=== PATIENT | male | born 1970 | race Caucasian/White ===

== ENCOUNTER 2017-07-16 17:54 | Emergency (ER) | payer OTHER ==
[~2017-07-16] VITALS: Ht 172.7 cm; Wt 72.6 kg
[~2017-07-16 17:54] MED LIST: ACET325 PO; ALBU90OI INH; AMOCLA500 PO; AMOCLA875 PO; AMOX500 PO; CEPH500 PO; CRUTCH2 XX; CRUTCH3 USE; Cipro500 MG PO; Ciprodex Otic7.5 ML BOTHEARS; Cortisporin Ear10 ML RIGHTEAR; DOXY100 PO; ERYT333ERA PO; HYDACE5 PO; HYDGUAL120 PO; HYDR1TAB94 PO; IBUP800 PO; INSULANPEN SC; LISI5 PO; LORA10ER PO; METF500 PO; METO25 PO; PROM25 PO; Percocet 5-3251 EACH PO; ROXICODONE5 MG PO; TERB24TC TOP; THIA100 PO; TRAM50 PO; Ultram50 MG PO
[2017-07-16] MEDS ORDERED: Bactrim Ds Tab1 EACH PO (19:01)
[2017-07-16] MEDS ORDERED: PENVK500 PO (19:01)
[2017-09-24] MEDS ORDERED: Augmentin 875-1 EACH PO (10:21)
[2017-09-24] MEDS ORDERED: HYDR1TAB94 PO (10:22)
[2017-09-24] MEDS ORDERED: CEPH500 PO (10:22)
[2017-09-24] MEDS ORDERED: ACET325 PO (10:23)
[2018-05-26] MEDS ORDERED: BASAGLAR K100 UNIT/1 (09:17)
[2018-05-26] MEDS ORDERED: PROM25 PO (12:38)
[2018-05-26] MEDS ORDERED: Mupirocin22 GM TOP (12:38)
== END 2017-07-16 19:10 | disposition home or self-care (01) ==
LOC: ER 17:54
DX: K04.7 Periapical abscess without sinus (principal); Z79.4 Long term (current) use of insulin; E11.9 Type 2 diabetes mellitus without complications; F17.200 Nicotine dependence, unspecified, uncomplicated
CPT/HCPCS: 10060; 99283

== ENCOUNTER 2017-08-15 09:05 | Emergency (ER) | payer OTHER ==
[~2017-08-15] VITALS: Ht 172.7 cm; Wt 72.6 kg
[~2017-08-15 09:05] MED LIST changes: +Bactrim Ds Tab1 EACH PO; +PENVK500 PO
[2017-08-15 10:00] LABS: BASOPHILS ABSOLUTE AUTO 0.05 K/mm3 (0.00-0.23); BASOPHILS PERCENT AUTO 1 % (0-2); EOSINOPHILS ABSOLUTE AUTO 0.16 K/mm3 (0.00-0.68); EOSINOPHILS PERCENT AUTO 2 % (0-6); Hematocrit 40.9 % (37.0-53.0); Hemoglobin 13.1 g/dL (13.5-17.5); IMMATURE GRAN ABSOLUTE AUTO 0.05 K/mm3 (0.00-0.10); IMMATURE GRAN PERCENT AUTO 1 % (0-1); LYMPHOCYTES ABSOLUTE AUTO 1.85 K/mm3 (0.84-5.20); LYMPHOCYTES PERCENT AUTO 18 % (21-46); MONOCYTES ABSOLUTE AUTO 0.68 K/mm3 (0.16-1.47); MONOCYTES PERCENT AUTO 7 % (4-13); Mean Corpuscular HGB 27.8 pg (26.0-34.0); Mean Corpuscular Volume 87 fL (80-100); Mean Platelet Volume 9.2 fL (9.1-12.4); NEUTROPHILS ABSOLUTE AUTO 7.67 K/mm3 (1.96-9.15); NEUTROPHILS PERCENT AUTO 73 % (41-73); Platelet Count 339 K/mm3 (150-400); RDW Standard Deviation 44.7 fL (35.1-46.3); Red Blood Cell Count 4.72 M/mm3 (4.30-5.90); White Blood Cell Count 10.46 K/mm3 (4.00-11.30)
[2017-08-15 10:20] LABS: Alanine Aminotransfer (ALT/SGP 21 U/L (12-78); Albumin, Blood 3.7 g/dL (3.4-5.0); Albumin/Globulin Ratio 0.7 (0.8-1.8); Alk Phos 116 U/L (50-136); Anion Gap 6 mmol/L (6-16); Aspartate Aminotrans (AST/SGOT 11 U/L (12-37); Bilirubin, Total 0.5 mg/dL (0.1-1.0); Blood Urea Nitrogen 13 mg/dL (8-24); Bun/Creatinine Ratio 17.1 (12.0-20.0); CO2, Blood 26 mmol/L (21-32); Chloride, Blood 104 mmol/L (98-108); Creatinine, Blood 0.76 mg/dL (0.60-1.20); Glomerular Filtration Rate >60 (60-); Glucose, Blood 226 mg/dL (70-99); Potassium, Blood 4.4 mmol/L (3.5-5.5); Sodium, Blood 136 mmol/L (136-145); Total Protein, Blood 8.7 g/dL (6.4-8.2)
[2017-08-15] MEDS ORDERED: Loperamide2 MG PO (12:06)
[2017-08-15] MEDS ORDERED: ONDA4ODT MM (12:06)
[2017-09-24] MEDS ORDERED: Augmentin 875-1 EACH PO (10:21)
[2017-09-24] MEDS ORDERED: CEPH500 PO (10:22)
[2017-09-24] MEDS ORDERED: HYDR1TAB94 PO (10:22)
[2017-09-24] MEDS ORDERED: ACET325 PO (10:23)
[2018-05-26] MEDS ORDERED: BASAGLAR K100 UNIT/1 (09:17)
[2018-05-26] MEDS ORDERED: PROM25 PO (12:38)
[2018-05-26] MEDS ORDERED: Mupirocin22 GM TOP (12:38)
== END 2017-08-15 12:15 | disposition home or self-care (01) ==
LOC: ER 09:05
PROVIDERS: Emergency Medicine
DX: E11.65 Type 2 diabetes mellitus with hyperglycemia (principal); R10.9 Unspecified abdominal pain; R19.7 Diarrhea, unspecified; R11.0 Nausea; F17.200 Nicotine dependence, unspecified, uncomplicated; Z79.4 Long term (current) use of insulin
CPT/HCPCS: 36415; 80053; 82947; 83690; 85025; 96361; 96374; 96375; 99284; J2270; J2405; J7030

== ENCOUNTER 2017-09-11 | Emergency (ER) | END 2017-09-11 12:11 | disposition home or self-care (01) ==

== ENCOUNTER 2017-09-21 08:58 | Emergency (ER) | payer OTHER ==
[~2017-09-21] VITALS: Ht 172.7 cm; Wt 72.6 kg
[~2017-09-21 08:58] MED LIST changes: +Loperamide2 MG PO; +ONDA4ODT MM
[2017-09-21] MEDS ORDERED: Cleocin HCl150 MG PO (09:58)
[2018-05-26] MEDS ORDERED: BASAGLAR K100 UNIT/1 (09:17)
[2018-05-26] MEDS ORDERED: PROM25 PO (12:38)
[2018-05-26] MEDS ORDERED: Mupirocin22 GM TOP (12:38)
== END 2017-09-21 10:29 | disposition home or self-care (01) ==
LOC: ER 08:58
DX: K04.7 Periapical abscess without sinus (principal); L08.9 Local infection of the skin and subcutaneous tissue, unspecified; Z79.4 Long term (current) use of insulin; E11.9 Type 2 diabetes mellitus without complications; F17.210 Nicotine dependence, cigarettes, uncomplicated
CPT/HCPCS: 99282

== ENCOUNTER 2017-09-22 12:54 | Inpatient (IN) | payer OTHER ==
[~2017-09-22] VITALS: Ht 175.3 cm; Wt 66.5 kg
[~2017-09-22 12:54] MED LIST changes: +Cleocin HCl150 MG PO
[2017-09-22 13:41] LABS: BASOPHILS ABSOLUTE AUTO 0.06 K/mm3 (0.00-0.23); BASOPHILS PERCENT AUTO 1 % (0-2); EOSINOPHILS ABSOLUTE AUTO 0.05 K/mm3 (0.00-0.68); EOSINOPHILS PERCENT AUTO 1 % (0-6); Hematocrit 38.4 % (37.0-53.0); Hemoglobin 12.5 g/dL (13.5-17.5); IMMATURE GRAN ABSOLUTE AUTO 0.03 K/mm3 (0.00-0.10); IMMATURE GRAN PERCENT AUTO 0 % (0-1); LYMPHOCYTES ABSOLUTE AUTO 1.98 K/mm3 (0.84-5.20); LYMPHOCYTES PERCENT AUTO 26 % (21-46); MONOCYTES ABSOLUTE AUTO 0.67 K/mm3 (0.16-1.47); MONOCYTES PERCENT AUTO 9 % (4-13); Mean Corpuscular HGB 27.2 pg (26.0-34.0); Mean Corpuscular HGB Conc 32.6 g/dL (31.5-36.5); Mean Corpuscular Volume 84 fL (80-100); NEUTROPHILS ABSOLUTE AUTO 4.74 K/mm3 (1.96-9.15); NEUTROPHILS PERCENT AUTO 63 % (41-73); Platelet Count 463 K/mm3 (150-400); RDW Coefficient Variation 13.3 % (11.7-14.2); RDW Standard Deviation 40.4 fL (35.1-46.3); Red Blood Cell Count 4.59 M/mm3 (4.30-5.90); White Blood Cell Count 7.53 K/mm3 (4.00-11.30)
[2017-09-22 13:57] LABS: Alanine Aminotransfer (ALT/SGP 11 U/L (12-78); Albumin, Blood 3.4 g/dL (3.4-5.0); Albumin/Globulin Ratio 0.6 (0.8-1.8); Alk Phos 126 U/L (50-136); Anion Gap 7 mmol/L (6-16); Aspartate Aminotrans (AST/SGOT 8 U/L (12-37); Bilirubin, Total 0.5 mg/dL (0.1-1.0); Blood Urea Nitrogen 16 mg/dL (8-24); Bun/Creatinine Ratio 20.8 (12.0-20.0); CO2, Blood 27 mmol/L (21-32); Chloride, Blood 91 mmol/L (98-108); Creatinine, Blood 0.77 mg/dL (0.60-1.20); Glomerular Filtration Rate >60 (60-); Glucose, Blood 233 mg/dL (70-99); Potassium, Blood 4.4 mmol/L (3.5-5.5); Sodium, Blood 125 mmol/L (136-145); Total Protein, Blood 9.4 g/dL (6.4-8.2)
[2017-09-23 05:50] LABS: BASOPHILS ABSOLUTE AUTO 0.04 K/mm3 (0.00-0.23); BASOPHILS PERCENT AUTO 1 % (0-2); EOSINOPHILS ABSOLUTE AUTO 0.18 K/mm3 (0.00-0.68); EOSINOPHILS PERCENT AUTO 3 % (0-6); Hematocrit 33.5 % (37.0-53.0); Hemoglobin 10.9 g/dL (13.5-17.5); IMMATURE GRAN ABSOLUTE AUTO 0.02 K/mm3 (0.00-0.10); IMMATURE GRAN PERCENT AUTO 0 % (0-1); LYMPHOCYTES ABSOLUTE AUTO 2.14 K/mm3 (0.84-5.20); LYMPHOCYTES PERCENT AUTO 31 % (21-46); MONOCYTES ABSOLUTE AUTO 0.69 K/mm3 (0.16-1.47); MONOCYTES PERCENT AUTO 10 % (4-13); Mean Corpuscular HGB 27.1 pg (26.0-34.0); Mean Corpuscular HGB Conc 32.5 g/dL (31.5-36.5); Mean Corpuscular Volume 83 fL (80-100); Mean Platelet Volume 9.5 fL (9.1-12.4); NEUTROPHILS ABSOLUTE AUTO 3.87 K/mm3 (1.96-9.15); NEUTROPHILS PERCENT AUTO 56 % (41-73); Platelet Count 417 K/mm3 (150-400); RDW Coefficient Variation 13.2 % (11.7-14.2); RDW Standard Deviation 40.3 fL (35.1-46.3); Red Blood Cell Count 4.02 M/mm3 (4.30-5.90); White Blood Cell Count 6.94 K/mm3 (4.00-11.30)
[2017-09-23 06:28] LABS: Anion Gap 9 mmol/L (6-16); Blood Urea Nitrogen 13 mg/dL (8-24); Bun/Creatinine Ratio 21.9 (12.0-20.0); CO2, Blood 26 mmol/L (21-32); Calcium, Blood 8.3 mg/dL (8.5-10.1); Chloride, Blood 94 mmol/L (98-108); Creatinine, Blood 0.59 mg/dL (0.60-1.20); Glomerular Filtration Rate >60 (60-); Glucose, Blood 252 mg/dL (70-99); Potassium, Blood 4.1 mmol/L (3.5-5.5); Sodium, Blood 129 mmol/L (136-145)
[2017-09-24 01:18] LABS: BASOPHILS ABSOLUTE AUTO 0.05 K/mm3 (0.00-0.23); BASOPHILS PERCENT AUTO 1 % (0-2); EOSINOPHILS ABSOLUTE AUTO 0.17 K/mm3 (0.00-0.68); EOSINOPHILS PERCENT AUTO 2 % (0-6); Hematocrit 33.8 % (37.0-53.0); IMMATURE GRAN ABSOLUTE AUTO 0.03 K/mm3 (0.00-0.10); IMMATURE GRAN PERCENT AUTO 0 % (0-1); LYMPHOCYTES PERCENT AUTO 29 % (21-46); MONOCYTES PERCENT AUTO 7 % (4-13); Mean Corpuscular HGB 27.6 pg (26.0-34.0); Mean Corpuscular HGB Conc 32.5 g/dL (31.5-36.5); Mean Corpuscular Volume 85 fL (80-100); NEUTROPHILS ABSOLUTE AUTO 4.26 K/mm3 (1.96-9.15); NEUTROPHILS PERCENT AUTO 61 % (41-73); Platelet Count 363 K/mm3 (150-400); RDW Coefficient Variation 13.3 % (11.7-14.2); RDW Standard Deviation 41.6 fL (35.1-46.3); Red Blood Cell Count 3.99 M/mm3 (4.30-5.90); White Blood Cell Count 7.01 K/mm3 (4.00-11.30)
[2017-09-24 01:32] LABS: Anion Gap 5 mmol/L (6-16); Blood Urea Nitrogen 10 mg/dL (8-24); Bun/Creatinine Ratio 18.2 (12.0-20.0); CO2, Blood 29 mmol/L (21-32); Calcium, Blood 8.2 mg/dL (8.5-10.1); Chloride, Blood 99 mmol/L (98-108); Creatinine, Blood 0.55 mg/dL (0.60-1.20); Glomerular Filtration Rate >60 (60-); Glucose, Blood 107 mg/dL (70-99); Potassium, Blood 4.2 mmol/L (3.5-5.5); Sodium, Blood 133 mmol/L (136-145)
[2017-09-24 01:34] LABS: Vancomycin, Trough 12.3 ug/mL (5.0-10.0)
[2017-09-24] MEDS ORDERED: Augmentin 875-1 EACH PO ×2 (10:21)
[2017-09-24] MEDS ORDERED: CEPH500 PO ×2 (10:22)
[2017-09-24] MEDS ORDERED: HYDR1TAB94 PO ×2 (10:22)
[2017-09-24] MEDS ORDERED: ACET325 PO ×2 (10:23)
[2018-05-26] MEDS ORDERED: BASAGLAR K100 UNIT/1 (09:17)
[2018-05-26] MEDS ORDERED: PROM25 PO (12:38)
[2018-05-26] MEDS ORDERED: Mupirocin22 GM TOP (12:38)
== END 2017-09-24 10:55 | disposition home or self-care (01) | DRG 872 ==
LOC: ER 12:54 → MEDS 15:19
PROVIDERS: Emergency Medicine; Internal Medicine
PROC: 3E0234Z Introduction of Serum, Toxoid and Vaccine into Muscle, Percutaneous Approach (ICD-10-PCS; principal; 2017-09-22)
DX: A41.9 Sepsis, unspecified organism (principal); E11.65 Type 2 diabetes mellitus with hyperglycemia; L03.211 Cellulitis of face; E87.1 Hypo-osmolality and hyponatremia; F17.210 Nicotine dependence, cigarettes, uncomplicated; I10 Essential (primary) hypertension; Z23 Encounter for immunization; K02.9 Dental caries, unspecified; E86.0 Dehydration; R59.0 Localized enlarged lymph nodes; F15.10 Other stimulant abuse, uncomplicated; K04.7 Periapical abscess without sinus
CPT/HCPCS: 36415; 70491; 80048; 80053; 80202; 82947; 83605; 85025; 87040; 96361; 96365; 96375; 99285; J0295; J1815; J2405; J3010; J3370; J7030; J7050; Q9967

== ENCOUNTER 2018-01-03 17:32 | Emergency (ER) | payer OTHER ==
[~2018-01-03] VITALS: Ht 172.7 cm; Wt 70.3 kg
[~2018-01-03 17:32] MED LIST changes: +Augmentin 875-1 EACH PO
[2018-01-03 18:55] LABS: BASOPHILS ABSOLUTE AUTO 0.05 K/mm3 (0.00-0.23); BASOPHILS PERCENT AUTO 1 % (0-2); EOSINOPHILS PERCENT AUTO 4 % (0-6); Hemoglobin 11.1 g/dL (13.5-17.5); IMMATURE GRAN ABSOLUTE AUTO 0.03 K/mm3 (0.00-0.10); IMMATURE GRAN PERCENT AUTO 0 % (0-1); LYMPHOCYTES ABSOLUTE AUTO 2.38 K/mm3 (0.84-5.20); LYMPHOCYTES PERCENT AUTO 26 % (21-46); MONOCYTES ABSOLUTE AUTO 0.53 K/mm3 (0.16-1.47); MONOCYTES PERCENT AUTO 6 % (4-13); Mean Corpuscular HGB 27.6 pg (26.0-34.0); Mean Corpuscular HGB Conc 32.6 g/dL (31.5-36.5); Mean Corpuscular Volume 85 fL (80-100); Mean Platelet Volume 9.3 fL (9.1-12.4); NEUTROPHILS ABSOLUTE AUTO 5.62 K/mm3 (1.96-9.15); NEUTROPHILS PERCENT AUTO 62 % (41-73); Platelet Count 328 K/mm3 (150-400); RDW Coefficient Variation 13.7 % (11.7-14.2); RDW Standard Deviation 42.5 fL (35.1-46.3); Red Blood Cell Count 4.02 M/mm3 (4.30-5.90); White Blood Cell Count 9.01 K/mm3 (4.00-11.30)
[2018-01-03] MEDS ORDERED: CEPH500 PO (19:05)
[2018-01-03] MEDS ORDERED: Bactrim Ds Tab1 EACH PO (19:05)
[2018-01-03 19:27] LABS: Alanine Aminotransfer (ALT/SGP 26 U/L (12-78); Albumin/Globulin Ratio 0.7 (0.8-1.8); Alk Phos 132 U/L (50-136); Anion Gap 8 mmol/L (6-16); Aspartate Aminotrans (AST/SGOT 16 U/L (12-37); Bilirubin, Total 0.2 mg/dL (0.1-1.0); Blood Urea Nitrogen 14 mg/dL (8-24); Bun/Creatinine Ratio 17.3 (12.0-20.0); CO2, Blood 26 mmol/L (21-32); Calcium, Blood 8.4 mg/dL (8.5-10.1); Chloride, Blood 103 mmol/L (98-108); Creatinine, Blood 0.81 mg/dL (0.60-1.20); Globulin, Blood 4.2 g/dL (2.2-4.0); Glomerular Filtration Rate >60 (60-); Glucose, Blood 303 mg/dL (70-99); Potassium, Blood 4.1 mmol/L (3.5-5.5); Sodium, Blood 137 mmol/L (136-145); Total Protein, Blood 7.2 g/dL (6.4-8.2)
== END 2018-01-03 19:45 | disposition home or self-care (01) ==
LOC: ER 17:32
PROVIDERS: Emergency Medicine
DX: L03.114 Cellulitis of left upper limb (principal); L03.221 Cellulitis of neck; E11.9 Type 2 diabetes mellitus without complications; F17.210 Nicotine dependence, cigarettes, uncomplicated; Z79.4 Long term (current) use of insulin
CPT/HCPCS: 36415; 80053; 82947; 83690; 85025; 99283; J7030

== ENCOUNTER 2018-03-15 18:15 | Inpatient (IN) | payer OTHER ==
[~2018-03-15] VITALS: Ht 182.9 cm; Wt 70.3 kg
[2018-03-15 18:54] LABS: BASOPHILS ABSOLUTE AUTO 0.05 K/mm3 (0.00-0.23); BASOPHILS PERCENT AUTO 0 % (0-2); EOSINOPHILS ABSOLUTE AUTO 0.15 K/mm3 (0.00-0.68); EOSINOPHILS PERCENT AUTO 1 % (0-6); Hemoglobin 12.5 g/dL (13.5-17.5); IMMATURE GRAN ABSOLUTE AUTO 0.09 K/mm3 (0.00-0.10); IMMATURE GRAN PERCENT AUTO 1 % (0-1); LYMPHOCYTES ABSOLUTE AUTO 1.43 K/mm3 (0.84-5.20); LYMPHOCYTES PERCENT AUTO 7 % (21-46); MONOCYTES ABSOLUTE AUTO 0.92 K/mm3 (0.16-1.47); MONOCYTES PERCENT AUTO 5 % (4-13); Mean Corpuscular HGB 29.1 pg (26.0-34.0); Mean Corpuscular HGB Conc 32.9 g/dL (31.5-36.5); Mean Corpuscular Volume 89 fL (80-100); Mean Platelet Volume 9.4 fL (9.1-12.4); NEUTROPHILS ABSOLUTE AUTO 16.58 K/mm3 (1.96-9.15); NEUTROPHILS PERCENT AUTO 86 % (41-73); Platelet Count 402 K/mm3 (150-400); RDW Coefficient Variation 13.9 % (11.7-14.2); Red Blood Cell Count 4.29 M/mm3 (4.30-5.90); White Blood Cell Count 19.22 K/mm3 (4.00-11.30)
[2018-03-15 19:18] LABS: Alanine Aminotransfer (ALT/SGP 18 U/L (12-78); Albumin, Blood 3.3 g/dL (3.4-5.0); Albumin/Globulin Ratio 0.7 (0.8-1.8); Alk Phos 116 U/L (50-136); Anion Gap 9 mmol/L (6-16); Aspartate Aminotrans (AST/SGOT 8 U/L (12-37); Bilirubin, Total 0.3 mg/dL (0.1-1.0); Blood Urea Nitrogen 17 mg/dL (8-24); Bun/Creatinine Ratio 18.2 (12.0-20.0); CO2, Blood 24 mmol/L (21-32); Calcium, Blood 9.1 mg/dL (8.5-10.1); Chloride, Blood 102 mmol/L (98-108); Creatinine, Blood 0.94 mg/dL (0.60-1.20); Globulin, Blood 4.9 g/dL (2.2-4.0); Glomerular Filtration Rate >60 (60-); Glucose, Blood 288 mg/dL (70-99); Potassium, Blood 5.1 mmol/L (3.5-5.5); Sodium, Blood 135 mmol/L (136-145); Total Protein, Blood 8.2 g/dL (6.4-8.2)
[2018-03-16 05:28] LABS: Hematocrit 33.9 % (37.0-53.0); Hemoglobin 11.1 g/dL (13.5-17.5); Mean Corpuscular HGB Conc 32.7 g/dL (31.5-36.5); Mean Corpuscular Volume 89 fL (80-100); Mean Platelet Volume 9.2 fL (9.1-12.4); Platelet Count 325 K/mm3 (150-400); RDW Coefficient Variation 13.9 % (11.7-14.2); RDW Standard Deviation 44.9 fL (35.1-46.3); Red Blood Cell Count 3.83 M/mm3 (4.30-5.90); White Blood Cell Count 11.52 K/mm3 (4.00-11.30)
[2018-03-16 06:04] LABS: Alanine Aminotransfer (ALT/SGP 16 U/L (12-78); Albumin, Blood 2.6 g/dL (3.4-5.0); Albumin/Globulin Ratio 0.6 (0.8-1.8); Alk Phos 105 U/L (50-136); Anion Gap 8 mmol/L (6-16); Aspartate Aminotrans (AST/SGOT 11 U/L (12-37); Bilirubin, Total 0.4 mg/dL (0.1-1.0); Blood Urea Nitrogen 13 mg/dL (8-24); Bun/Creatinine Ratio 16.8 (12.0-20.0); CO2, Blood 26 mmol/L (21-32); Chloride, Blood 109 mmol/L (98-108); Creatinine, Blood 0.77 mg/dL (0.60-1.20); Globulin, Blood 4.2 g/dL (2.2-4.0); Glomerular Filtration Rate >60 (60-); Glucose, Blood 120 mg/dL (70-99); Potassium, Blood 3.8 mmol/L (3.5-5.5); Sodium, Blood 143 mmol/L (136-145); Total Protein, Blood 6.8 g/dL (6.4-8.2)
[2018-03-16 13:02] LABS: Vancomycin, Trough 10.1 ug/mL (5.0-10.0)
[2018-03-17 05:35] LABS: Alanine Aminotransfer (ALT/SGP 15 U/L (12-78); Albumin, Blood 2.5 g/dL (3.4-5.0); Albumin/Globulin Ratio 0.6 (0.8-1.8); Alk Phos 92 U/L (50-136); Anion Gap 7 mmol/L (6-16); Aspartate Aminotrans (AST/SGOT 10 U/L (12-37); Bilirubin, Total 0.2 mg/dL (0.1-1.0); Blood Urea Nitrogen 19 mg/dL (8-24); Bun/Creatinine Ratio 20.7 (12.0-20.0); CO2, Blood 28 mmol/L (21-32); Calcium, Blood 8.5 mg/dL (8.5-10.1); Chloride, Blood 107 mmol/L (98-108); Creatinine, Blood 0.92 mg/dL (0.60-1.20); Globulin, Blood 4.4 g/dL (2.2-4.0); Glomerular Filtration Rate >60 (60-); Glucose, Blood 94 mg/dL (70-99); Sodium, Blood 142 mmol/L (136-145); Total Protein, Blood 6.9 g/dL (6.4-8.2)
[2018-03-17 06:03] LABS: BASOPHILS ABSOLUTE AUTO 0.07 K/mm3 (0.00-0.23); BASOPHILS PERCENT AUTO 1 % (0-2); EOSINOPHILS ABSOLUTE AUTO 0.33 K/mm3 (0.00-0.68); EOSINOPHILS PERCENT AUTO 4 % (0-6); Hematocrit 34.1 % (37.0-53.0); Hemoglobin 10.9 g/dL (13.5-17.5); IMMATURE GRAN ABSOLUTE AUTO 0.03 K/mm3 (0.00-0.10); IMMATURE GRAN PERCENT AUTO 0 % (0-1); LYMPHOCYTES ABSOLUTE AUTO 2.94 K/mm3 (0.84-5.20); LYMPHOCYTES PERCENT AUTO 36 % (21-46); MONOCYTES ABSOLUTE AUTO 0.57 K/mm3 (0.16-1.47); MONOCYTES PERCENT AUTO 7 % (4-13); Mean Corpuscular HGB 28.9 pg (26.0-34.0); Mean Corpuscular Volume 91 fL (80-100); Mean Platelet Volume 9.3 fL (9.1-12.4); NEUTROPHILS PERCENT AUTO 52 % (41-73); Platelet Count 318 K/mm3 (150-400); RDW Coefficient Variation 13.9 % (11.7-14.2); RDW Standard Deviation 46.2 fL (35.1-46.3); Red Blood Cell Count 3.77 M/mm3 (4.30-5.90); White Blood Cell Count 8.14 K/mm3 (4.00-11.30)
[2018-03-17 12:38] LABS: Vancomycin, Trough 15.2 ug/mL (5.0-10.0)
[2018-03-18 05:14] LABS: BASOPHILS ABSOLUTE AUTO 0.06 K/mm3 (0.00-0.23); BASOPHILS PERCENT AUTO 1 % (0-2); EOSINOPHILS ABSOLUTE AUTO 0.35 K/mm3 (0.00-0.68); EOSINOPHILS PERCENT AUTO 4 % (0-6); Hematocrit 32.5 % (37.0-53.0); Hemoglobin 10.4 g/dL (13.5-17.5); IMMATURE GRAN ABSOLUTE AUTO 0.03 K/mm3 (0.00-0.10); IMMATURE GRAN PERCENT AUTO 0 % (0-1); LYMPHOCYTES ABSOLUTE AUTO 2.73 K/mm3 (0.84-5.20); LYMPHOCYTES PERCENT AUTO 29 % (21-46); MONOCYTES PERCENT AUTO 8 % (4-13); Mean Corpuscular HGB 28.4 pg (26.0-34.0); Mean Corpuscular Volume 89 fL (80-100); Mean Platelet Volume 9.4 fL (9.1-12.4); NEUTROPHILS ABSOLUTE AUTO 5.48 K/mm3 (1.96-9.15); NEUTROPHILS PERCENT AUTO 59 % (41-73); Platelet Count 333 K/mm3 (150-400); RDW Coefficient Variation 13.7 % (11.7-14.2); RDW Standard Deviation 44.9 fL (35.1-46.3); Red Blood Cell Count 3.66 M/mm3 (4.30-5.90); White Blood Cell Count 9.35 K/mm3 (4.00-11.30)
[2018-03-18 05:33] LABS: Anion Gap 6 mmol/L (6-16); Blood Urea Nitrogen 26 mg/dL (8-24); Bun/Creatinine Ratio 28.5 (12.0-20.0); CO2, Blood 28 mmol/L (21-32); Calcium, Blood 8.2 mg/dL (8.5-10.1); Chloride, Blood 106 mmol/L (98-108); Creatinine, Blood 0.91 mg/dL (0.60-1.20); Glomerular Filtration Rate >60 (60-); Glucose, Blood 138 mg/dL (70-99); Sodium, Blood 140 mmol/L (136-145)
[2018-03-18 14:46] LABS: Vancomycin, Trough 18.7 ug/mL (5.0-10.0)
[2018-03-19 05:33] LABS: BASOPHILS ABSOLUTE AUTO 0.07 K/mm3 (0.00-0.23); BASOPHILS PERCENT AUTO 1 % (0-2); EOSINOPHILS ABSOLUTE AUTO 0.36 K/mm3 (0.00-0.68); EOSINOPHILS PERCENT AUTO 4 % (0-6); Hematocrit 36.2 % (37.0-53.0); Hemoglobin 11.7 g/dL (13.5-17.5); IMMATURE GRAN ABSOLUTE AUTO 0.05 K/mm3 (0.00-0.10); IMMATURE GRAN PERCENT AUTO 1 % (0-1); LYMPHOCYTES PERCENT AUTO 28 % (21-46); MONOCYTES ABSOLUTE AUTO 0.65 K/mm3 (0.16-1.47); MONOCYTES PERCENT AUTO 7 % (4-13); Mean Corpuscular HGB 28.3 pg (26.0-34.0); Mean Corpuscular HGB Conc 32.3 g/dL (31.5-36.5); Mean Corpuscular Volume 88 fL (80-100); Mean Platelet Volume 9.7 fL (9.1-12.4); NEUTROPHILS ABSOLUTE AUTO 5.67 K/mm3 (1.96-9.15); NEUTROPHILS PERCENT AUTO 60 % (41-73); Platelet Count 406 K/mm3 (150-400); RDW Coefficient Variation 13.9 % (11.7-14.2); RDW Standard Deviation 44.5 fL (35.1-46.3); Red Blood Cell Count 4.13 M/mm3 (4.30-5.90)
[2018-03-19 06:22] LABS: Anion Gap 5 mmol/L (6-16); Blood Urea Nitrogen 25 mg/dL (8-24); Bun/Creatinine Ratio 29.6 (12.0-20.0); CO2, Blood 30 mmol/L (21-32); Calcium, Blood 8.7 mg/dL (8.5-10.1); Chloride, Blood 106 mmol/L (98-108); Creatinine, Blood 0.85 mg/dL (0.60-1.20); Glomerular Filtration Rate >60 (60-); Glucose, Blood 109 mg/dL (70-99); Potassium, Blood 4.2 mmol/L (3.5-5.5); Sodium, Blood 141 mmol/L (136-145)
[2018-03-19] MEDS ORDERED: PAIN & FEVER325 MG PO (10:19)
[2018-03-19] MEDS ORDERED: NICO21TP TOP (10:26)
[2018-03-19] MEDS ORDERED: Acidophilus La100 GM PO (10:27)
[2018-03-19] MEDS ORDERED: Augmentin 875-1 EACH PO (10:28)
== END 2018-03-19 11:19 | disposition home or self-care (01) | DRG 872 ==
LOC: ER 18:15 → MEDS 20:06 → ENPENDDIS 03-19 09:32 → MEDS 03-19 11:19
PROVIDERS: Internal Medicine; Pharmacist; Physician Assistant
DX: A41.9 Sepsis, unspecified organism (principal); L03.312 Cellulitis of back [any part except buttock and flank]; L02.212 Cutaneous abscess of back [any part, except buttock and flank]; E11.65 Type 2 diabetes mellitus with hyperglycemia; I10 Essential (primary) hypertension; F19.10 Other psychoactive substance abuse, uncomplicated; F17.210 Nicotine dependence, cigarettes, uncomplicated; Z79.4 Long term (current) use of insulin
CPT/HCPCS: 36415; 36416; 72129; 80048; 80053; 80202; 82947; 83605; 85025; 85027; 96374; 99284-25; J1650; J1885; J2543; J3370; J7030; Q9967

== ENCOUNTER 2018-07-05 00:10 | Day surgery (SDC) | payer OTHER ==
[~2018-07-05 00:10] MED LIST changes: +Acidophilus La100 GM PO; +BASAGLAR K100 UNIT/1; +Mupirocin22 GM TOP; +NICO21TP TOP; +PAIN & FEVER325 MG PO
== END 2018-07-05 22:37 | disposition home or self-care (01) ==
LOC: WOUND 00:10
DX: E11.621 Type 2 diabetes mellitus with foot ulcer (principal); L97.412 Non-pressure chronic ulcer of right heel and midfoot with fat layer exposed; L97.522 Non-pressure chronic ulcer of other part of left foot with fat layer exposed; L97.515 Non-pressure chronic ulcer of other part of right foot with muscle involvement without evidence of necrosis; S61.206D Unspecified open wound of right little finger without damage to nail, subsequent encounter; S61.200D Unspecified open wound of right index finger without damage to nail, subsequent encounter; L03.032 Cellulitis of left toe; F19.10 Other psychoactive substance abuse, uncomplicated; Z79.4 Long term (current) use of insulin; Z72.0 Tobacco use; Z59.0 Homelessness

== ENCOUNTER 2018-07-07 00:17 | Day surgery (SDC) | payer OTHER | END 2018-07-07 22:43 | disposition home or self-care (01) | LOC: WOUND 00:17 | DX: E11.621 Type 2 diabetes mellitus with foot ulcer (principal); L97.515 Non-pressure chronic ulcer of other part of right foot with muscle involvement without evidence of necrosis; L97.412 Non-pressure chronic ulcer of right heel and midfoot with fat layer exposed; S61.206D Unspecified open wound of right little finger without damage to nail, subsequent encounter; S61.200D Unspecified open wound of right index finger without damage to nail, subsequent encounter; S91.102D Unspecified open wound of left great toe without damage to nail, subsequent encounter; L03.032 Cellulitis of left toe; F19.10 Other psychoactive substance abuse, uncomplicated; Z79.4 Long term (current) use of insulin; Z72.0 Tobacco use; Z59.0 Homelessness | CPT/HCPCS: 82947; G0463 ==

== ENCOUNTER 2018-07-22 08:30 | Day surgery (SDC) | payer OTHER | END 2018-07-22 22:44 | disposition home or self-care (01) | LOC: WOUND 08:30 | PROC: 0KBV0ZZ Excision of Right Foot Muscle, Open Approach (ICD-10-PCS; principal; 2018-07-22) | DX: E11.621 Type 2 diabetes mellitus with foot ulcer (principal); L97.512 Non-pressure chronic ulcer of other part of right foot with fat layer exposed ==

== ENCOUNTER 2018-07-26 10:15 | Day surgery (SDC) | payer OTHER | END 2018-07-26 22:34 | disposition home or self-care (01) | LOC: WOUND 10:15 | PROC: 0HBMXZZ Excision of Right Foot Skin, External Approach (ICD-10-PCS; principal; 2018-07-26) | DX: E11.621 Type 2 diabetes mellitus with foot ulcer (principal); L97.512 Non-pressure chronic ulcer of other part of right foot with fat layer exposed ==

== ENCOUNTER 2018-08-16 09:50 | Day surgery (SDC) | payer OTHER | END 2018-08-16 22:42 | disposition home or self-care (01) | LOC: WOUND 09:50 | DX: E11.621 Type 2 diabetes mellitus with foot ulcer (principal); L97.515 Non-pressure chronic ulcer of other part of right foot with muscle involvement without evidence of necrosis; L97.529 Non-pressure chronic ulcer of other part of left foot with unspecified severity; L03.032 Cellulitis of left toe; F19.10 Other psychoactive substance abuse, uncomplicated; Z79.4 Long term (current) use of insulin; Z72.0 Tobacco use; Z59.0 Homelessness | CPT/HCPCS: G0463 ==

== ENCOUNTER 2018-08-31 07:55 | Day surgery (SDC) | payer OTHER | END 2018-08-31 22:38 | disposition home or self-care (01) | LOC: WOUND 07:55 | DX: E11.621 Type 2 diabetes mellitus with foot ulcer (principal); L97.512 Non-pressure chronic ulcer of other part of right foot with fat layer exposed; E11.40 Type 2 diabetes mellitus with diabetic neuropathy, unspecified; F19.10 Other psychoactive substance abuse, uncomplicated; Z79.4 Long term (current) use of insulin; Z72.0 Tobacco use; Z59.0 Homelessness; I10 Essential (primary) hypertension | CPT/HCPCS: 87070; 87075; 87077; 87147; 87186; 87205 ==

== ENCOUNTER 2018-09-18 10:37 | Inpatient (IN) | payer OTHER ==
[~2018-09-18] VITALS: Ht 175.3 cm; Wt 72.2 kg
[~2018-09-18 10:37] MED LIST changes: -BASAGLAR K100 UNIT/1; +BASAGLAR K100 UNIT/1 SC
[2018-09-18 11:47] LABS: BASOPHILS ABSOLUTE AUTO 0.05 K/mm3 (0.00-0.23); BASOPHILS PERCENT AUTO 0 % (0-2); EOSINOPHILS ABSOLUTE AUTO 0.01 K/mm3 (0.00-0.68); EOSINOPHILS PERCENT AUTO 0 % (0-6); Hematocrit 32.2 % (37.0-53.0); Hemoglobin 10.7 g/dL (13.5-17.5); IMMATURE GRAN ABSOLUTE AUTO 0.19 K/mm3 (0.00-0.10); IMMATURE GRAN PERCENT AUTO 1 % (0-1); LYMPHOCYTES ABSOLUTE AUTO 1.22 K/mm3 (0.84-5.20); LYMPHOCYTES PERCENT AUTO 6 % (21-46); MONOCYTES ABSOLUTE AUTO 1.38 K/mm3 (0.16-1.47); MONOCYTES PERCENT AUTO 6 % (4-13); Mean Corpuscular HGB 28.6 pg (26.0-34.0); Mean Corpuscular HGB Conc 33.2 g/dL (31.5-36.5); Mean Corpuscular Volume 86 fL (80-100); Mean Platelet Volume 9.8 fL (9.1-12.4); NEUTROPHILS PERCENT AUTO 87 % (41-73); Platelet Count 310 K/mm3 (150-400); RDW Coefficient Variation 14.9 % (11.7-14.2); RDW Standard Deviation 47.7 fL (35.1-46.3); Red Blood Cell Count 3.74 M/mm3 (4.30-5.90); White Blood Cell Count 21.55 K/mm3 (4.00-11.30)
[2018-09-18 12:14] LABS: Alanine Aminotransfer (ALT/SGP 20 U/L (12-78); Albumin, Blood 3.1 g/dL (3.4-5.0); Albumin/Globulin Ratio 0.7 (0.8-1.8); Alk Phos 94 U/L (50-136); Anion Gap 12 mmol/L (6-16); Aspartate Aminotrans (AST/SGOT 20 U/L (12-37); Bilirubin, Total 0.8 mg/dL (0.1-1.0); Blood Urea Nitrogen 27 mg/dL (8-24); Bun/Creatinine Ratio 27.7 (12.0-20.0); CO2, Blood 20 mmol/L (21-32); Calcium, Blood 8.1 mg/dL (8.5-10.1); Chloride, Blood 98 mmol/L (98-108); Creatinine, Blood 0.98 mg/dL (0.60-1.20); Globulin, Blood 4.2 g/dL (2.2-4.0); Glomerular Filtration Rate >60 (60-); Glucose, Blood 265 mg/dL (70-99); Potassium, Blood 4.1 mmol/L (3.5-5.5); Sodium, Blood 130 mmol/L (136-145); Total Protein, Blood 7.3 g/dL (6.4-8.2)
[2018-09-18 12:21] LABS: Beta-hydroxybutyrate 2.5 mg/dL (0.2-2.8)
[2018-09-19 08:06] LABS: BASOPHILS ABSOLUTE AUTO 0.04 K/mm3 (0.00-0.23); BASOPHILS PERCENT AUTO 0 % (0-2); EOSINOPHILS ABSOLUTE AUTO 0.13 K/mm3 (0.00-0.68); EOSINOPHILS PERCENT AUTO 1 % (0-6); Hemoglobin 9.5 g/dL (13.5-17.5); IMMATURE GRAN PERCENT AUTO 1 % (0-1); LYMPHOCYTES ABSOLUTE AUTO 2.41 K/mm3 (0.84-5.20); LYMPHOCYTES PERCENT AUTO 15 % (21-46); MONOCYTES ABSOLUTE AUTO 1.26 K/mm3 (0.16-1.47); MONOCYTES PERCENT AUTO 8 % (4-13); Mean Corpuscular HGB 28.5 pg (26.0-34.0); Mean Corpuscular HGB Conc 31.7 g/dL (31.5-36.5); Mean Platelet Volume 9.7 fL (9.1-12.4); NEUTROPHILS ABSOLUTE AUTO 12.25 K/mm3 (1.96-9.15); NEUTROPHILS PERCENT AUTO 76 % (41-73); Platelet Count 265 K/mm3 (150-400); RDW Coefficient Variation 15.3 % (11.7-14.2); RDW Standard Deviation 50.7 fL (35.1-46.3); Red Blood Cell Count 3.33 M/mm3 (4.30-5.90); White Blood Cell Count 16.19 K/mm3 (4.00-11.30)
[2018-09-19 08:07] LABS: Mean Corpuscular Volume 90 fL (80-100)
[2018-09-19 08:30] LABS: Alanine Aminotransfer (ALT/SGP 19 U/L (12-78); Albumin, Blood 2.7 g/dL (3.4-5.0); Albumin/Globulin Ratio 0.6 (0.8-1.8); Alk Phos 91 U/L (50-136); Anion Gap 7 mmol/L (6-16); Aspartate Aminotrans (AST/SGOT 18 U/L (12-37); Bilirubin, Total 0.5 mg/dL (0.1-1.0); Blood Urea Nitrogen 28 mg/dL (8-24); Bun/Creatinine Ratio 33.4 (12.0-20.0); CO2, Blood 24 mmol/L (21-32); Calcium, Blood 8.1 mg/dL (8.5-10.1); Chloride, Blood 106 mmol/L (98-108); Creatinine, Blood 0.84 mg/dL (0.60-1.20); Globulin, Blood 4.2 g/dL (2.2-4.0); Glomerular Filtration Rate >60 (60-); Glucose, Blood 84 mg/dL (70-99); Potassium, Blood 4.5 mmol/L (3.5-5.5); Sodium, Blood 137 mmol/L (136-145); Total Protein, Blood 6.9 g/dL (6.4-8.2)
--- NOTE | 2018-09-19 18:22 | NUR ---
09/19/181819 DR BOATENG SAW NEW ORDEREDS PLACED ANTIBIOTIC INFUSED. HAD A FEVER TODAY AND TYLENOL BROUGHT IT DOWN POST OP SHOE ORDERED
[2018-09-20 05:07] LABS: BASOPHILS ABSOLUTE AUTO 0.02 K/mm3 (0.00-0.23); BASOPHILS PERCENT AUTO 0 % (0-2); EOSINOPHILS ABSOLUTE AUTO 0.25 K/mm3 (0.00-0.68); EOSINOPHILS PERCENT AUTO 2 % (0-6); Hematocrit 30.5 % (37.0-53.0); Hemoglobin 9.6 g/dL (13.5-17.5); IMMATURE GRAN ABSOLUTE AUTO 0.05 K/mm3 (0.00-0.10); IMMATURE GRAN PERCENT AUTO 0 % (0-1); LYMPHOCYTES ABSOLUTE AUTO 1.89 K/mm3 (0.84-5.20); LYMPHOCYTES PERCENT AUTO 15 % (21-46); MONOCYTES ABSOLUTE AUTO 0.72 K/mm3 (0.16-1.47); MONOCYTES PERCENT AUTO 6 % (4-13); Mean Corpuscular HGB 28.7 pg (26.0-34.0); Mean Corpuscular HGB Conc 31.5 g/dL (31.5-36.5); Mean Corpuscular Volume 91 fL (80-100); Mean Platelet Volume 10.1 fL (9.1-12.4); NEUTROPHILS ABSOLUTE AUTO 9.99 K/mm3 (1.96-9.15); NEUTROPHILS PERCENT AUTO 77 % (41-73); Platelet Count 273 K/mm3 (150-400); RDW Coefficient Variation 15.1 % (11.7-14.2); RDW Standard Deviation 51.2 fL (35.1-46.3); Red Blood Cell Count 3.34 M/mm3 (4.30-5.90); White Blood Cell Count 12.92 K/mm3 (4.00-11.30)
[2018-09-20 05:30] LABS: Anion Gap 7 mmol/L (6-16); Blood Urea Nitrogen 20 mg/dL (8-24); CO2, Blood 25 mmol/L (21-32); Calcium, Blood 7.9 mg/dL (8.5-10.1); Chloride, Blood 108 mmol/L (98-108); Glomerular Filtration Rate >60 (60-); Glucose, Blood 133 mg/dL (70-99); Potassium, Blood 4.2 mmol/L (3.5-5.5); Sodium, Blood 140 mmol/L (136-145); Vancomycin, Trough 10.5 ug/mL (5.0-10.0)
--- NOTE | 2018-09-20 06:23 | NUR ---
SHIFT SUMMARY A/O, ABLE TO MAKE NEEDS KNOWN. COOPERATIVE WITH CARE. C/O PAIN/DISCOMFORT PERIODICALLY T/O THE NIGHT; MEDICATED PER EMAR. APPEARED TO REST MUCH OF SHIFT. IV ABX INFUSION ADMINISTERED WITHOUT COMPLICATIONS. BLOOD SUGAR 144; LONG ACTING GIVEN. NO COVERAGE NEEDED FOR SHORT ACTING. REMAINS ON RA; RESPIRATIONS EVEN WITH EQUAL RISE AND FALL. NO ACUTE CHANGES OVERNIGHT. HYPERTENSIVE, BUT REMAINS ON TREND WITH PREVIOUS PRESSURES. BED IN LOWEST POSITION. CALL LIGHT AND BELONGINGS WITHIN REACH. WCTM. REPORT TO ONCOMING RN.
--- NOTE | 2018-09-20 13:25 | NUR ---
pt gave permission for this nursing studnet to assist with care on 09/20/2018 from [id number].
--- NOTE | 2018-09-20 18:25 | NUR ---
NO ACUTE CHANGES NOTED, PATIENT BLOOD PRESSURE FLUCTUATES WITH HIS FEVER AND CHILLS. PRN TYLENOL AND IBPROPHAN GIVEN FOR FEVER. BP WAS ELEVATED SO CBC AND LACTIC ACID WERE REDRAWN STAT. PENDING RESULTS. WOUND DRESSINGS ARE CLEAN DRY AND INTACT. NO CURRENT COMPLAINTS OF PAIN OR DISCOMFORT NOTED. WILL CONTINUE TO MONITOR FOR CHANGES.
[2018-09-20 18:39] LABS: BASOPHILS ABSOLUTE AUTO 0.04 K/mm3 (0.00-0.23); BASOPHILS PERCENT AUTO 0 % (0-2); EOSINOPHILS ABSOLUTE AUTO 0.23 K/mm3 (0.00-0.68); EOSINOPHILS PERCENT AUTO 2 % (0-6); Hematocrit 28.7 % (37.0-53.0); Hemoglobin 8.9 g/dL (13.5-17.5); IMMATURE GRAN ABSOLUTE AUTO 0.03 K/mm3 (0.00-0.10); IMMATURE GRAN PERCENT AUTO 0 % (0-1); LYMPHOCYTES ABSOLUTE AUTO 1.41 K/mm3 (0.84-5.20); LYMPHOCYTES PERCENT AUTO 12 % (21-46); MONOCYTES ABSOLUTE AUTO 0.69 K/mm3 (0.16-1.47); MONOCYTES PERCENT AUTO 6 % (4-13); Mean Corpuscular HGB 28.4 pg (26.0-34.0); Mean Corpuscular Volume 92 fL (80-100); Mean Platelet Volume 9.9 fL (9.1-12.4); NEUTROPHILS ABSOLUTE AUTO 9.66 K/mm3 (1.96-9.15); NEUTROPHILS PERCENT AUTO 80 % (41-73); Platelet Count 282 K/mm3 (150-400); RDW Coefficient Variation 15.1 % (11.7-14.2); RDW Standard Deviation 50.4 fL (35.1-46.3); Red Blood Cell Count 3.13 M/mm3 (4.30-5.90); White Blood Cell Count 12.06 K/mm3 (4.00-11.30)
--- NOTE | 2018-09-20 21:09 | NUR ---
PT RESTING QUIETLY.
--- NOTE | 2018-09-20 22:09 | NUR ---
PT CONTINUES TO REST QUIETLY.
--- NOTE | 2018-09-21 04:21 | NUR ---
PT C/O VISION BEING BLURRY AND STATES THAT THIS HAPPENS OCCASIONALLY IN THE MORNINGS. SPOT CHECKED BLOOD GLUCOSE, CBG 57. GAVE PT ORANGE JUICE AND A YOGURT. PT ALERT AND ORIENTED. WILL MONITOR.
--- NOTE | 2018-09-21 04:24 | NUR ---
SHIFT SUMMARY: MEDICATED PT FOR PAIN IN HIS FEET WITH IV DILAUDID WITH GOOD PAIN RELIEF. PT WAS ABLE TO REST. PAIN IS WORSE WHEN UP OUT OF BED AND WALKING. OINTMENT PLACED ON AFFECTED AREAS OF LEFT TOES . RIGHT FOOD BANDAGE INTACT. OCCASIONALLY SPIKING A TEMP DURING THE SHIFT. ROOM TEMP TURNED DOWN AND PT OFFERED COLD LIQUIDS AND COLD FOOD TO HELP BRING DOWN BODY TEMP. TEMPERATURE DID TREND DOWN. WILL CONTINUE TO MONITOR AND PROVIDE CARE UNTIL SHIFT REPORT.
[2018-09-21 05:39] LABS: BASOPHILS ABSOLUTE AUTO 0.04 K/mm3 (0.00-0.23); BASOPHILS PERCENT AUTO 0 % (0-2); EOSINOPHILS ABSOLUTE AUTO 0.15 K/mm3 (0.00-0.68); EOSINOPHILS PERCENT AUTO 1 % (0-6); Hematocrit 28.7 % (37.0-53.0); Hemoglobin 9.1 g/dL (13.5-17.5); IMMATURE GRAN ABSOLUTE AUTO 0.04 K/mm3 (0.00-0.10); IMMATURE GRAN PERCENT AUTO 0 % (0-1); LYMPHOCYTES PERCENT AUTO 8 % (21-46); MONOCYTES ABSOLUTE AUTO 0.77 K/mm3 (0.16-1.47); MONOCYTES PERCENT AUTO 7 % (4-13); Mean Corpuscular HGB 28.2 pg (26.0-34.0); Mean Corpuscular HGB Conc 31.7 g/dL (31.5-36.5); NEUTROPHILS ABSOLUTE AUTO 9.49 K/mm3 (1.96-9.15); NEUTROPHILS PERCENT AUTO 83 % (41-73); Platelet Count 309 K/mm3 (150-400); RDW Coefficient Variation 14.7 % (11.7-14.2); RDW Standard Deviation 47.6 fL (35.1-46.3); Red Blood Cell Count 3.23 M/mm3 (4.30-5.90); White Blood Cell Count 11.39 K/mm3 (4.00-11.30)
[2018-09-21 05:57] LABS: Mean Corpuscular Volume 89 fL (80-100)
[2018-09-21 05:59] LABS: Anion Gap 9 mmol/L (6-16); Blood Urea Nitrogen 18 mg/dL (8-24); Bun/Creatinine Ratio 26.5 (12.0-20.0); CO2, Blood 24 mmol/L (21-32); Calcium, Blood 8.1 mg/dL (8.5-10.1); Chloride, Blood 102 mmol/L (98-108); Creatinine, Blood 0.68 mg/dL (0.60-1.20); Glomerular Filtration Rate >60 (60-); Glucose, Blood 136 mg/dL (70-99); Potassium, Blood 4.1 mmol/L (3.5-5.5); Sodium, Blood 135 mmol/L (136-145)
--- NOTE | 2018-09-21 17:30 | NUR ---
SHIFT SUMMARY PT HAS A TEMP OF 100.5. PT CONTINUES TO WEAR ICE PACKS ON HIS CHEST/NECK. OTHER VITALS STABLE AT THIS TIME. PT IN STABLE CONDITION. ABX AND FLUIDS RUNNING. NO OTHER CHANGES IN ASSESSMENT AT THIS TIME. DRESSING CHANGED ON R FOOT. OINTMENT APPLIED TO TOES ORDERED. WILL CONTINUE TO MONITOR UNTIL TURNOVER IS COMPLETE. PT MEDICATED FOR PAIN 3X THIS SHIFT.
[2018-09-21 17:32] LABS: Vancomycin, Trough 10.3 ug/mL (5.0-10.0)
--- NOTE | 2018-09-21 20:00 | NUR ---
CALL LIGHT IN REACH, UP IN ROOM WALKING AROUND. EMPTIED URINAL - 200 ML. MERCA WOUND. DOESNT WANT A SHOWER NOR TEETH BRUSHED. CLASSIFIED AN INDEPENDANT.
[2018-09-22 05:40] LABS: BASOPHILS ABSOLUTE AUTO 0.05 K/mm3 (0.00-0.23); BASOPHILS PERCENT AUTO 1 % (0-2); EOSINOPHILS ABSOLUTE AUTO 0.23 K/mm3 (0.00-0.68); EOSINOPHILS PERCENT AUTO 2 % (0-6); Hematocrit 30.2 % (37.0-53.0); Hemoglobin 9.6 g/dL (13.5-17.5); IMMATURE GRAN ABSOLUTE AUTO 0.04 K/mm3 (0.00-0.10); IMMATURE GRAN PERCENT AUTO 0 % (0-1); LYMPHOCYTES ABSOLUTE AUTO 1.39 K/mm3 (0.84-5.20); LYMPHOCYTES PERCENT AUTO 13 % (21-46); MONOCYTES PERCENT AUTO 10 % (4-13); Mean Corpuscular HGB 28.3 pg (26.0-34.0); Mean Corpuscular HGB Conc 31.8 g/dL (31.5-36.5); Mean Corpuscular Volume 89 fL (80-100); Mean Platelet Volume 9.7 fL (9.1-12.4); NEUTROPHILS ABSOLUTE AUTO 7.85 K/mm3 (1.96-9.15); NEUTROPHILS PERCENT AUTO 74 % (41-73); Platelet Count 368 K/mm3 (150-400); RDW Coefficient Variation 14.5 % (11.7-14.2); RDW Standard Deviation 46.7 fL (35.1-46.3); Red Blood Cell Count 3.39 M/mm3 (4.30-5.90); White Blood Cell Count 10.56 K/mm3 (4.00-11.30)
--- NOTE | 2018-09-22 07:46 | NUR ---
Rn summary: Patient is alert and oriented. Patient is up independant in room, he uses urinal at bedside. Pt knows he is to be NWB to right foot. Drsg to right foot is C/D/I. Left toes are dk purplish and painful. Patient was medicated with dilaudid 1mg x2 with a 5/325 mg percocet in between. PT had better pain control the sencond half of the shift. Pt is getting multiple ABX IV. Pt did have a temp of 102 temporal tylenol 2 tabs given. Temp after 2 hours down to 98.5. Pt able to use call light appropriately. Report to oncomming shift.
--- NOTE | 2018-09-22 15:05 | NUR ---
PT GAVE SN PERMISSION TO ASSIST WITH CARE AND ACCESS CHART ON 09/22/18.
--- NOTE | 2018-09-22 15:49 | NUR ---
PT UPDATE PT TEMP INCREASED TO 101.9. PT SHIVERING IN ROOM. PT BP ELEVATED TO 177/96 WITH A HR OF 129. DR. TUCKER INFORMED OF PT CONDITION & VITALS. ORDERED A 500ML NS BOLUS, STAT BLOOD CULTURES, AND LACTIC ACID. PT GIVEN 650 TYLENOL PO. WILL CONTINUE TO MONITOR PT AND UPDATE DR. TUCKER WITH NEW VITALS AFTER BOLUS
--- NOTE | 2018-09-22 16:24 | NUR ---
PT TEMP INCREASED TO 102.9. ICE APPLIED TO PT CHEST & NECK. PT NOW REQUIRING 3L O2 VIA NC FOR SATS OF 92% ISTRATE AWARE OF PT CHANGES. CHEST X RAY ORDERED. AWAITING LAB DRAWS.
--- NOTE | 2018-09-22 18:18 | NUR ---
SHIFT SUMMARY PT CURRENTLY HAS TEMP OF 101.4. 650 TYLENOL GIVEN. PT MEDICATED FOR PAIN THROUGHOUT THIS SHIFT WITH BOTH IV & PO MEDS. PT STATES HE FEELS "MUCH BETTER" NOW THAT HE RECIEVED THE 500ML FLUID BOLUS. PT HR IMPROVED TO 102 & BP TO 144/68. PT ALERT & ORIENTED. ICE PLACED ON PT NECK. PT TOLERATING WELL. PT RECEIVED REPEAT CHEST X-RAY THIS SHIFT. PT VOIDING WELL. FLUIDS RUNNING AT 125/HR NS. PT SATING AT 93% ON 2L O2 VIA NC. WILL CONTINUE TO MONITOR UNTIL TURNOVER IS COMPLETE.
[2018-09-23 05:23] LABS: BASOPHILS ABSOLUTE AUTO 0.05 K/mm3 (0.00-0.23); BASOPHILS PERCENT AUTO 0 % (0-2); EOSINOPHILS ABSOLUTE AUTO 0.15 K/mm3 (0.00-0.68); EOSINOPHILS PERCENT AUTO 1 % (0-6); Hematocrit 27.2 % (37.0-53.0); Hemoglobin 8.6 g/dL (13.5-17.5); IMMATURE GRAN ABSOLUTE AUTO 0.06 K/mm3 (0.00-0.10); IMMATURE GRAN PERCENT AUTO 1 % (0-1); LYMPHOCYTES ABSOLUTE AUTO 1.06 K/mm3 (0.84-5.20); LYMPHOCYTES PERCENT AUTO 9 % (21-46); MONOCYTES ABSOLUTE AUTO 1.05 K/mm3 (0.16-1.47); MONOCYTES PERCENT AUTO 9 % (4-13); Mean Corpuscular HGB 28.6 pg (26.0-34.0); Mean Corpuscular HGB Conc 31.6 g/dL (31.5-36.5); Mean Corpuscular Volume 90 fL (80-100); Mean Platelet Volume 10.1 fL (9.1-12.4); NEUTROPHILS ABSOLUTE AUTO 9.25 K/mm3 (1.96-9.15); NEUTROPHILS PERCENT AUTO 80 % (41-73); Platelet Count 388 K/mm3 (150-400); RDW Coefficient Variation 14.8 % (11.7-14.2); RDW Standard Deviation 49.4 fL (35.1-46.3); Red Blood Cell Count 3.01 M/mm3 (4.30-5.90); White Blood Cell Count 11.62 K/mm3 (4.00-11.30)
[2018-09-23 05:57] LABS: Anion Gap 6 mmol/L (6-16); Blood Urea Nitrogen 12 mg/dL (8-24); Bun/Creatinine Ratio 15.2 (12.0-20.0); CO2, Blood 27 mmol/L (21-32); Calcium, Blood 8.1 mg/dL (8.5-10.1); Chloride, Blood 100 mmol/L (98-108); Creatinine, Blood 0.79 mg/dL (0.60-1.20); Glomerular Filtration Rate >60 (60-); Glucose, Blood 135 mg/dL (70-99); Potassium, Blood 4.5 mmol/L (3.5-5.5); Sodium, Blood 133 mmol/L (136-145)
--- NOTE | 2018-09-23 08:05 | NUR ---
Rn summary: Patient is alert and oriented. He states he talked with his today and he is in better spirits. Pt continues to have pain caren feet. Received Dilaudid 1mg x2 and percocet 5/325mg x2. Pt with increasing cough, some sputum. O2 continues at 2 liters. Breath sounds are clear. Pt did continue with a temp during the night. Temporal temp was 102.1 where oral is 99.1. Pt did try motrin 600mg, temp was 101.0 Temporal and 99.[address] Mcintyre at bedside, he is aware of temps, pt continues with antibiotics IV. Pt states he just doesnt feel good. Call light in reach. Report to Lobo CROWE.
[2018-09-23 14:25] LABS: Vancomycin, Trough 15.2 ug/mL (5.0-10.0)
--- NOTE | 2018-09-23 19:14 | NUR ---
SHIFT SUMMARY THE PATIENT PRE SENTED THIS SHIFT WITH LUNGS SOUNDS THAT COARSE AND DIM, THE PATIENT IS A&O X4, AND VITALS WERE WNL, WITH AND ELEVATED TEMP. THE PATIENT WAS INDEPENDANT IN HIS ROOM AND CALL NEEDED. THE PATIENT DID GO OUTSIDE WITH HIS SPOUSE FOR A SHORT TIME. THE PATIENT IS RESTING AT THIS TIME. WILL CONTINUE TO MONITOR.
--- NOTE | 2018-09-24 03:42 | NUR ---
temp of 102, pt states he is feeling fine not hot, no sign of sweating, room neither hot nor cold, gave tylenol, waited half an hour, rechecked temp still 102 (oral) discussed with charge nurse, will continue to montior and revaluate after another half an hour
[2018-09-24 05:23] LABS: BASOPHILS ABSOLUTE AUTO 0.04 K/mm3 (0.00-0.23); BASOPHILS PERCENT AUTO 0 % (0-2); EOSINOPHILS ABSOLUTE AUTO 0.16 K/mm3 (0.00-0.68); EOSINOPHILS PERCENT AUTO 2 % (0-6); Hematocrit 25.8 % (37.0-53.0); Hemoglobin 8.2 g/dL (13.5-17.5); IMMATURE GRAN ABSOLUTE AUTO 0.04 K/mm3 (0.00-0.10); IMMATURE GRAN PERCENT AUTO 0 % (0-1); LYMPHOCYTES ABSOLUTE AUTO 1.08 K/mm3 (0.84-5.20); LYMPHOCYTES PERCENT AUTO 12 % (21-46); MONOCYTES ABSOLUTE AUTO 0.89 K/mm3 (0.16-1.47); MONOCYTES PERCENT AUTO 10 % (4-13); Mean Corpuscular HGB 28.5 pg (26.0-34.0); Mean Corpuscular HGB Conc 31.8 g/dL (31.5-36.5); Mean Corpuscular Volume 90 fL (80-100); Mean Platelet Volume 9.5 fL (9.1-12.4); NEUTROPHILS ABSOLUTE AUTO 7.18 K/mm3 (1.96-9.15); NEUTROPHILS PERCENT AUTO 77 % (41-73); Platelet Count 422 K/mm3 (150-400); RDW Coefficient Variation 14.7 % (11.7-14.2); RDW Standard Deviation 48.7 fL (35.1-46.3); Red Blood Cell Count 2.88 M/mm3 (4.30-5.90); White Blood Cell Count 9.39 K/mm3 (4.00-11.30)
[2018-09-24 06:08] LABS: Albumin, Blood 2.2 g/dL (3.4-5.0); Anion Gap 7 mmol/L (6-16); Blood Urea Nitrogen 17 mg/dL (8-24); Bun/Creatinine Ratio 23.2 (12.0-20.0); CO2, Blood 26 mmol/L (21-32); Chloride, Blood 100 mmol/L (98-108); Creatinine, Blood 0.73 mg/dL (0.60-1.20); Glomerular Filtration Rate >60 (60-); Glucose, Blood 109 mg/dL (70-99); Phosphorus, Blood 3.2 mg/dL (2.5-4.9); Potassium, Blood 4.1 mmol/L (3.5-5.5); Sodium, Blood 133 mmol/L (136-145)
--- NOTE | 2018-09-24 07:31 | NUR ---
a+o, saline locked, room air call light in reach, walking rounds completed with day staff, feet dressed cdi
--- NOTE | 2018-09-24 19:03 | NUR ---
SHIFT SUMMARY ANETTE COMPLAINED OF BLE PAIN THIS SHIFT. TYLENOL, IBUPROFEN, PERCOCET, AND IV DILAUDID WORKED FOR HIS PAIN. CLEANED AND CHANGED DRESSINGS, CHANELL PIERRE. INDEPENDENT IN ROOM WITH WHEELCHAIR, PT IS AWARE THAT HE IS NON WEIGHT BEARING ON HIS FEET. VISITED. FREQUENT COUGH, HAS BEEN AN ISSUE, NON PRODUCTIVE. ON ROOM AIR. USED URINAL FOR VOIDING. WCTM
--- NOTE | 2018-09-25 07:33 | NUR ---
a+o, call light in reach, abx infusing with no s/sx of infection or infiltration, room air, put o2 on prn, walking rounds completed with day staff, rewrapped foot
[2018-09-25 15:18] LABS: PCO2 Arterial 33.4 mmHg (35-45); PO2 Arterial 28.5 mmHg (80-100)
--- NOTE | 2018-09-25 15:45 | NUR ---
Recieved report from Med floor RN and patient was wheel through door. He was sitting up in bed with NRM at 15L O2 and sast 80-90's. We transfered him to ICU bed and he would only situp at bedside while we were hooking him up. Dr Retana at bedside and and RT setting up BiPAP. He was placed on 29/01 at 100% FiO2 and sats high 80's to low 90's and he was feeling able to breath but rates in the high 20's.
--- NOTE | 2018-09-25 16:30 | NUR ---
Dr Retana ordered PICC line and placed quickly for meds, he came with 18ga IV ASHTYN, but wanted better access. He states he is doing better but RR in the high 20's and was giving sips of water for dry mouth. He refused willson and tried to stand to urinate but only 100ml, sent tox UA.
[2018-09-25 16:55] LABS: BASOPHILS ABSOLUTE AUTO 0.02 K/mm3 (0.00-0.23); BASOPHILS PERCENT AUTO 0 % (0-2); EOSINOPHILS ABSOLUTE AUTO 0.01 K/mm3 (0.00-0.68); EOSINOPHILS PERCENT AUTO 0 % (0-6); Hematocrit 25.7 % (37.0-53.0); Hemoglobin 8.4 g/dL (13.5-17.5); IMMATURE GRAN ABSOLUTE AUTO 0.08 K/mm3 (0.00-0.10); IMMATURE GRAN PERCENT AUTO 1 % (0-1); LYMPHOCYTES ABSOLUTE AUTO 0.51 K/mm3 (0.84-5.20); LYMPHOCYTES PERCENT AUTO 5 % (21-46); MONOCYTES ABSOLUTE AUTO 0.27 K/mm3 (0.16-1.47); MONOCYTES PERCENT AUTO 3 % (4-13); Mean Corpuscular HGB 27.8 pg (26.0-34.0); Mean Corpuscular HGB Conc 32.7 g/dL (31.5-36.5); Mean Platelet Volume 9.8 fL (9.1-12.4); NEUTROPHILS ABSOLUTE AUTO 9.22 K/mm3 (1.96-9.15); NEUTROPHILS PERCENT AUTO 91 % (41-73); Platelet Count 482 K/mm3 (150-400); RDW Coefficient Variation 14.8 % (11.7-14.2); Red Blood Cell Count 3.02 M/mm3 (4.30-5.90); White Blood Cell Count 10.11 K/mm3 (4.00-11.30)
[2018-09-25 16:56] LABS: U Amphetamine Screen Not Detected; U Barbituate Screen Not Detected; U Benzodiazapine Screen Not Detected; U Buprenorphine Screen Not Detected; U Cannabinoids Screen DETECTED; U Cocaine Screen Not Detected; U Methadone Screen Not Detected; U Methamphetamine Screen Not Detected; U Opiates Screen DETECTED; U Oxycodone Screen DETECTED; U Phencyclidine Screen Not Detected; U Propoxyphene Screen Not Detected
[2018-09-25 17:02] LABS: Alanine Aminotransfer (ALT/SGP 120 U/L (12-78); Albumin, Blood 2.2 g/dL (3.4-5.0); Albumin/Globulin Ratio 0.4 (0.8-1.8); Alk Phos 95 U/L (50-136); Anion Gap 9 mmol/L (6-16); Aspartate Aminotrans (AST/SGOT 155 U/L (12-37); Bilirubin, Total 0.2 mg/dL (0.1-1.0); Blood Urea Nitrogen 23 mg/dL (8-24); Bun/Creatinine Ratio 28.1 (12.0-20.0); CO2, Blood 27 mmol/L (21-32); Calcium, Blood 8.2 mg/dL (8.5-10.1); Chloride, Blood 96 mmol/L (98-108); Creatinine, Blood 0.82 mg/dL (0.60-1.20); Globulin, Blood 4.9 g/dL (2.2-4.0); Glomerular Filtration Rate >60 (60-); Glucose, Blood 187 mg/dL (70-99); Potassium, Blood 4.2 mmol/L (3.5-5.5); Sodium, Blood 132 mmol/L (136-145); Total Protein, Blood 7.1 g/dL (6.4-8.2)
[2018-09-25 17:10] LABS: Mean Corpuscular Volume 85 fL (80-100)
--- NOTE | 2018-09-25 18:30 | NUR ---
Echo done and swab came back + for influenza A. He is already on contact for MRSA. He remains on BIPAP 29/01 at 100% FiO2 and sats 92%. Abd looks distended but Dr Chaney states looks normal for when saw earlier. ABX have been given via PICC line and PO meds as well. CBG 169 no coverage needed and he was chaned to Q6
[2018-09-25 18:31] LABS: Adenovirus Not Detected (NOT DETECT); Bordetella pertussis Not Detected (NOT DETECT); Chlamydophila pneumoniae Not Detected (NOT DETECT); Coronavirus 229E Not Detected (NOT DETECT); Coronavirus HKU1 Not Detected (NOT DETECT); Coronavirus NL63 Not Detected (NOT DETECT); Coronavirus OC43 Not Detected (NOT DETECT); Human Metapneumovirus Not Detected (NOT DETECT); Human Rhinovirus/Enterovirus Not Detected (NOT DETECT); Influenza A Not Detected (NOT DETECT); Influenza A/2009-H1 Not Detected (NOT DETECT); Influenza A/H1 Detected (NOT DETECT); Influenza A/H3 Not Detected (NOT DETECT); Influenza B Not Detected (NOT DETECT); Mycoplasma pneumoniae Not Detected (NOT DETECT); Parainfluenza Virus 1 Not Detected (NOT DETECT); Parainfluenza Virus 2 Not Detected (NOT DETECT); Parainfluenza Virus 3 Not Detected (NOT DETECT); Parainfluenza Virus 4 Not Detected (NOT DETECT); Respiratory Syncytial Virus Not Detected (NOT DETECT)
--- NOTE | 2018-09-25 18:55 | NUR ---
ECHOCARDIOGRAM COMPLETED
--- NOTE | 2018-09-25 19:11 | NUR ---
SHIFT SUMMARY/PATIENT TRANSFER PATIENT TRANSFERED TO ICU. PATIENT BEGAN COMPLAINING OF COUGH AND SHORTNESS OF BREATH AFTER LUNCH. ORDERS GIVEN FOR LASIX AND CHEST XRAY. RT CALLED FOR BREATHING TX. PATIENT SYMPTOMS DID NOT IMPROVE. RT AND CHARGE NURSE INFORMED PATIENT UNABLE TO MAINTAIN OXYGEN SATURATION ABOVE 50% ON ROOM AIR. NON-REBREATHER APPLIED AT 15L AND ORDERS FOR STAT TRANSFER TO ICU GIVEN. REPORT CALLED TO RECEIVING ICU NURSE WHILE PATIENT EN ROUTE.
--- NOTE | 2018-09-25 19:15 | NUR ---
ASSUMING CARE OF PT AT THIS TIME. PT REPORT RECEIVED AT BEDSIDE WITH OFFGOING NURSE, DULCE CROWE. PT LAYING IN BED, SLEEPING UPON ENTERING THE ROOM. BIPAP 15/10, FIO2 100%. VS STABLE - SEE VS FS. PT DOES NOT APPEAR TO BE IN DISTRESS AT THIS TIME. WILL REVIEW PLAN OF CARE.
--- NOTE | 2018-09-25 19:30 | NUR ---
ASSESSMENT PT ANXIOUS, RESTLESS IN BED, ATTEMPTING TO GET OOB (SIDE RAILS UP, BED ALARM ON, FALL RISK PRECAUTIONS MAINTAINED), WITHDRAWN. PT STATED, "I AM ANXIOUS AND OVERWHELMED WITH BEING HERE. THIS IS ALL JUST TOO MUCH". TURNED ON TV FOR DISTRACTION, TURNED DOWN ROOM LIGHTS. PT REMAINS ANXIOUS, RESTLESS IN BED, AND ATTEMPTING TO GET OOB. PT A&O X4, OCC SLOW TO RESPOND, OTHERWISE ANSWERS QUESTIONS AND TALKS APPROPRIATELY, SPONT OPENS EYES, RESPONDS TO VERBAL STIMULI, FOLLOW COMAMNDS. PT C/O N/T TO HANDS AND FT. WOUNDS TO BILAT FT. PT BAUMAN. SLIGHT WEAKNESS NOTED. PT TURNS SELF IN BED. NON WEIGHT BEARING RT FOOT. PT DENIES PAIN/DISCOMFORT AT THIS TIME. NO S/SX OF PAIN/DISCOMFORT NOTED EXCEPT RESLTESSNESS IN BED. LUNGS COARSE, DIMINISHED LOWER LOBES. SHALLOW BREATHING. BIPAP 15/10, FIO2 100% RR 20'S. OXY SAT >95%. SOB @ REST. DYSPNEA WITH EXERTION. LABORED BREATHING. OCC PRODUCTIVE MOIST COUGH - MOD AMOUNTS OF THICK WHITE SECRETIONS. APPLIED SUCTION TO ROOM. PT ABLE TO USE SUCTION. TEMP 99.9 - FAN ON, TYLENOL PRN, BLANKETS OFF, ROOM TEMP DOWN. ST. HR 100'S. BP STABLE - SEE VS FS. STRONG RADIAL PULSES. FAINT TIBIAL PULSES. DOPPLER PEDAL PULSES. EDEMA R ANKLE. WARM, PALE BUE'S. COOL, PALE BLE'S. HYPOACTIVE BT X4 QUADRANTS. ABD SOFT, NONTENDER, MOD DIST. NO N/V. NO BM. PT VOIDS IN URINAL - NO UO AT THIS TIME. PICC ASHTYN. NS TKO AT 10 ML/HR. PER REPORT - WOUND CARE COMPLETED BY WOUND CARE TEAM THIS AM.
--- NOTE | 2018-09-25 20:10 | NUR ---
DR. BELL PT CONVERTED TO VTACH. UPON WALKING IN ROOM, PT REPOSITIONED SELF TO RIGHT SIDE. CRASH CART TO ROOM. THIS RN REPOSITIONED PT TO SUPINE. PT CONVERTED BACK TO ST, HR 100'S. SEE RYTHM STRIPS. INFORMED DR. BELL OF MOST RECENT LABS AND RYTHM CHANGE. DR. BELL INSTRUCTED TO ORDER STAT RENAL AND MAG LABS. STAT LABS SENT. WAITING FOR LAB RESULTS AT THIS TIME.
[2018-09-25 20:53] LABS: Albumin, Blood 2.1 g/dL (3.4-5.0); Anion Gap 8 mmol/L (6-16); Blood Urea Nitrogen 25 mg/dL (8-24); Bun/Creatinine Ratio 29.1 (12.0-20.0); CO2, Blood 26 mmol/L (21-32); Calcium, Blood 7.6 mg/dL (8.5-10.1); Chloride, Blood 97 mmol/L (98-108); Creatinine, Blood 0.86 mg/dL (0.60-1.20); Glomerular Filtration Rate >60 (60-); Glucose, Blood 154 mg/dL (70-99); Phosphorus, Blood 4.3 mg/dL (2.5-4.9); Potassium, Blood 4.5 mmol/L (3.5-5.5); Sodium, Blood 131 mmol/L (136-145)
--- NOTE | 2018-09-25 21:37 | NUR ---
DR. BELL CALLED DR. BELL AT THIS TIME. INFORMED DR. BELL OF STAT RENAL AND MAG RESULTS. DR. BELL ORDERED STAT CHEST XRAY TO VERIFY PLACEMENT OF PICC LINE TO ASHTYN. STAT CHEST XRAY ORDERED. WAITING FOR POUCH MAKER AT THIS TIME. PT REMAINS ANXIOUS, RESTLESS IN BED, ATTEMPTING TO GET OOB. PT'S AT BEDSIDE. PER PT'S , "WE HAVE BEEN FOR SEVERAL MONTHS. THIS IS THE FIRST TIME WE HAVE BEEN EACH OTHER IN SEVERAL MONTHS". DR. BELL INSTRUCTED TO CONT UTILIZING NONPHARM METHODS FOR ANXIETY. DR. BELL ALSO INSTRUCTED TO POSTPONE CT SCAN UNTIL ANXIETY AND RESTLESSNESS HAVE RESOLVED.
--- NOTE | 2018-09-25 21:58 | NUR ---
DR. RODGERS STAT CHEST XRAY COMPLETED. DR. RODGERS REVIEWED CHEST XRAY TO VERIFY PICC LINE PLACEMENT AT THIS TIME. DR. RODGERS INSTRUCTED TO PULL OUT PICC LINE AN ADDITIONAL 5 CM FOR A TOTAL OF [address] RODGERS ALSO ORDERED STAT CHEST XRAY AFTER WITHDRAWING PICC LINE 5 CM.
--- NOTE | 2018-09-25 22:15 | NUR ---
PICC LINE PER DR. ANA MARIA MCFARLAND, RN AND AMRITA MENDEZ PULLED PICC LINE OUT 5 CM. EXPOSED CATHETER FROM INSERTION SITE IS 12 CM. WAITING FOR PRESIDENT CEO & FOUNDER TO VERIFY PLACEMENT OF PICC LINE. NEW DRESSING C/D/I.
--- NOTE | 2018-09-25 22:30 | NUR ---
DR. RODGERS CHEST XRAY COMPLETED. CALLED DR. RODGERS AT THIS TIME. WAITING FOR CALL BACK FROM DR. RODGERS AT THIS TIME TO VERIFY PICC LINE PLACEMENT.
--- NOTE | 2018-09-25 23:07 | NUR ---
DR. ANA MARIA RODGERS CALLED BACK ICU AT THIS TIME. DR. RODGERS CONFIRMED PLACEMENT OF PICC LINE AT THIS TIME.
--- NOTE | 2018-09-26 00:30 | NUR ---
CT SCAN PT TRANSFERRED TO CT VIA BED WITH SURESH MARIA, VANESSA RN, AND MRAIPOSA RT. UTILIZED TRANSPORT MONITOR TO MONITOR VS. PT ON BIPAP 15/10, FIO2 60%. INCREASED FIO2 TO 80% UPON TRANSFERRING THE PT D/T OXY SAT <90%. OXY SAT REMAINED 90% AND GREATER WHILE ON BIPAP 15/10, FIO2 80%. PT ANXIOUS UPON COMPLETING CT SCAN AND TRANSFERRING PT BACK TO ICU. PT CURRENTLY LAYING IN BED, SLEEPING, ON BIPAP.
[2018-09-26 03:33] LABS: BASOPHILS ABSOLUTE AUTO 0.01 K/mm3 (0.00-0.23); BASOPHILS PERCENT AUTO 0 % (0-2); EOSINOPHILS ABSOLUTE AUTO 0.02 K/mm3 (0.00-0.68); EOSINOPHILS PERCENT AUTO 0 % (0-6); Hematocrit 23.9 % (37.0-53.0); Hemoglobin 7.8 g/dL (13.5-17.5); IMMATURE GRAN ABSOLUTE AUTO 0.06 K/mm3 (0.00-0.10); IMMATURE GRAN PERCENT AUTO 1 % (0-1); LYMPHOCYTES ABSOLUTE AUTO 1.33 K/mm3 (0.84-5.20); LYMPHOCYTES PERCENT AUTO 16 % (21-46); MONOCYTES ABSOLUTE AUTO 0.67 K/mm3 (0.16-1.47); MONOCYTES PERCENT AUTO 8 % (4-13); Mean Corpuscular HGB 28.9 pg (26.0-34.0); Mean Corpuscular HGB Conc 32.6 g/dL (31.5-36.5); Mean Platelet Volume 9.5 fL (9.1-12.4); NEUTROPHILS ABSOLUTE AUTO 6.43 K/mm3 (1.96-9.15); NEUTROPHILS PERCENT AUTO 76 % (41-73); Platelet Count 427 K/mm3 (150-400); RDW Coefficient Variation 15.2 % (11.7-14.2); RDW Standard Deviation 49.5 fL (35.1-46.3); White Blood Cell Count 8.52 K/mm3 (4.00-11.30)
[2018-09-26 03:34] LABS: Mean Corpuscular Volume 89 fL (80-100)
[2018-09-26 03:56] LABS: Anion Gap 8 mmol/L (6-16); Blood Urea Nitrogen 24 mg/dL (8-24); Bun/Creatinine Ratio 27.6 (12.0-20.0); CO2, Blood 27 mmol/L (21-32); Calcium, Blood 7.6 mg/dL (8.5-10.1); Chloride, Blood 99 mmol/L (98-108); Creatinine, Blood 0.87 mg/dL (0.60-1.20); Glomerular Filtration Rate >60 (60-); Glucose, Blood 125 mg/dL (70-99); Potassium, Blood 4.2 mmol/L (3.5-5.5); Sodium, Blood 134 mmol/L (136-145)
[2018-09-26 04:00] LABS: C-REACTIVE PROTEIN, EXT RANGE >19.000 mg/dL (0.000-0.300)
--- NOTE | 2018-09-26 04:33 | NUR ---
DR. ARABELLA BELL D/C AM CHEST XRAY D/T CHEST XRAY AND CT CHEST OBTAINED EARLIER IN SHIFT.
--- NOTE | 2018-09-26 04:37 | NUR ---
SHIFT ASSESSMENT NO ACUTE CHANGES NOTED T/O SHIFT. LESS ANXIETY AND RESTLESSNESS NOTED THIS AM. EARLIER IN THE SHIFT, PT STATED, "I AM ANXIOUS AND OVERWHELMED WITH BEING HERE. THIS IS ALL JUST TOO MUCH". PT LATER STATED, "SORRY FOR BEING IRRITATED. I WAS OVERWHELMED WITH BEING HERE. ALSO, I HADN'T SEEN MY IN TWO MONTHS AFTER BEING , SO I WAS REALLY EMOTIONAL". PT OCC AGITATED WITH BIPAP MASK. PT CONT TO EXPRESS A DESIRE TO REMOVE BIPAP MASK, BUT IS NO LONGER REMOVING MASK. PT A&O X4, LETHARGIC T/O SHIFT (PT SLEPT T/O SHIFT), OCC DIFFICULT TO AROUSE, MORE AROUSABLE THIS AM, OCC SLOW TO RESPOND, RESPONDS TO VERBAL STIMULI, FOLLOWS COMMANDS. PT C/O N/T TO HANDS AND FT. WOUND TO BILAT FT. PT BAUMAN. SLIGHT WEAKNESS NOTED. PT TURNS SELF IN BED. NON WEIGHT BEARING. PT C/O OF OCC BACK AND BLE'S PAIN. CONT TO ASSESS FOR PAIN/DISCOMFORT AND MEDICATED WITH PAIN MEDS PER PHYSICIAN'S ORDER / UTILIZED NONPHARM METHODS. LUNGS COARSE, DIMINISHED LOWER LOBES. SHALLOW BREATHING. BIPAP 15/10, FIO2 CURRENTLY AT 65%. CONT TO TITRATE FIO2 TO MAINTAIN SPO2 90% AND GREATER. FIO2 TITRATED BETWEEN 60% ANG 100% T/O SHIFT. PT DESAT WHILE OFF BIPAP. RR 12 TO 30'S. DYSPNEA WITH EXERTION. OCC PRODUCTIVE MOIST COUGH - MOD AMOUNTS OF THICK WHITE SECRETIONS. PT USES SUCTION AT BEDSIDE. TMAX 99.9. CURRENTLY AFEBRILE. NSR TO ST. HR 70'S TO 100'S. EPISODE OF VTACH NOTED EARLIER IN SHIFT - SEE PREVIOUS NN. BP STABLE - SEE VS FS. STRONG RADIAL PULSES. FAINT TIBIAL PULSES. DOPPLER PEDAL PULSES. EDEMA R ANKLE. WARM, PALE BUE'S. COOL, PALE BLE'S. HYPOACTIVE BT X4 QUADRANTS. ABD SOFT, NONTENDER, MOD DIST. NO N/V. NO BM. PT VOIDS IN URINAL - DARK, YELLOW URINE NOTED. PICC ASHTYN. NS TKO AT 10 ML/HR. AM LABS COMPLETED. PENDING ABG. AM CHEST XRAY D/C BY DR. BELL. CT SCAN COMPLETED THIS SHIFT. WILL CONT TO MONITOR PT AND WILL PROVIDE BEDSIDE REPORT TO ONCOMING NURSE THIS AM.
[2018-09-26 05:05] LABS: PO2 Arterial 158 mmHg (80-100); pH Blood Arterial 7.45 (7.35-7.45)
--- NOTE | 2018-09-26 12:26 | NUR ---
0800 PT INDICATES THAT FEET ARE IMPOVING BUT CONT TO HAVE SOME PAIN. PO MEDS GIVEN. PT INDICATED HE NEEDS TO HAVE BM AND WILL ARRANGE FOR BSC. PT WOB IS MINIMAL AND IS TOLERATING DOWNWARD TITRATION OF BIPAP SETTINGS...SEE RT FLOW SHEET.
[2018-09-26 14:55] LABS: Vancomycin, Trough 23.4 ug/mL (5.0-10.0)
--- NOTE | 2018-09-26 15:30 | NUR ---
1340 PT PLACED ON NC 5L AND TOLERATING WELL. PT HAS BEEN SLEEPING AND AWAKENED W/O INC. WOB OR DESAT, REMAINS 92% APPROX. WHILE SLEEPING AND 92-94 AWAKE. PT DENIES RESP. DISTRESS AT THIS TIME...1540 EVEN AFTER UP TO BSC.
--- NOTE | 2018-09-26 17:54 | NUR ---
PT HAS NAPPED AND SETTING UP WATCHNG TV THIS PM W/O RESP. DISTRESS AND SATS 92-96%. PT HAS BEEN TAKING PO WELL W/O N/V AND HAS HAD 2 LARGE BM'S TODAY. PT DENIES ANY SOB OR INC. WOB. HAS BEEN VOIDING WELL. I/O, VS, SATS NOTED.
--- NOTE | 2018-09-26 19:20 | NUR ---
ASSUME CARE: REPORT RECIEVD FROM OFF GOING RN MIKY. MONITOR INTACT SHOWING SINUS RHYTHM. HEART RATE 80'S. WATCHING TV AND VISITING WITH VISITOR IN ROOM. REMAINS IN DROPLET AND CONDTACT ISOLATION. RESPIRATIONS REGULAR AND EASY AT REST BECOMES DYSPNIC WITH ANY ACTIVITY . O2 IN PLACE AT 5L/MIN. SPO2 95-98% AT REST. LUNG SOUMDS COARSE WITH DECREASED SOUNDS IN THE BASES. ABDOMEN SOFT WITH BOWEL SOUNDS FOUR QUADS. UP TO BCC TOLERATES WELL. MED FORMED BROWN STOOL. VOIDS SUNNI URINE. DRESSING TO L FOOT INTACT. TOES TO L FOOT REMAIN OPEN TO AIR PURPLE TIPS WITH SCATTERED PURPLISH AREAS. PEDAL PULSES PRESENT . CONTINUE TO MONITOR AND REPORT CHANGE IN PATIENT CONDITION.ATE APPROX 30% OF MEAL TRAY. MEDICATED WITH PERCOCET 5MG PO FOR FOOT PAIN.
--- NOTE | 2018-09-27 01:46 | NUR ---
REQUEST SOMETHING TO HELP GET TO SLEEP. HOT COCOA TOLERATED WELL
[2018-09-27 03:50] LABS: BASOPHILS ABSOLUTE AUTO 0.02 K/mm3 (0.00-0.23); BASOPHILS PERCENT AUTO 0 % (0-2); EOSINOPHILS ABSOLUTE AUTO 0.16 K/mm3 (0.00-0.68); EOSINOPHILS PERCENT AUTO 2 % (0-6); Hematocrit 26.6 % (37.0-53.0); Hemoglobin 8.5 g/dL (13.5-17.5); IMMATURE GRAN ABSOLUTE AUTO 0.05 K/mm3 (0.00-0.10); IMMATURE GRAN PERCENT AUTO 1 % (0-1); LYMPHOCYTES ABSOLUTE AUTO 1.16 K/mm3 (0.84-5.20); LYMPHOCYTES PERCENT AUTO 11 % (21-46); MONOCYTES ABSOLUTE AUTO 0.57 K/mm3 (0.16-1.47); MONOCYTES PERCENT AUTO 6 % (4-13); Mean Corpuscular HGB 28.4 pg (26.0-34.0); Mean Corpuscular Volume 89 fL (80-100); Mean Platelet Volume 9.6 fL (9.1-12.4); NEUTROPHILS ABSOLUTE AUTO 8.44 K/mm3 (1.96-9.15); NEUTROPHILS PERCENT AUTO 81 % (41-73); Platelet Count 519 K/mm3 (150-400); RDW Standard Deviation 49.4 fL (35.1-46.3); Red Blood Cell Count 2.99 M/mm3 (4.30-5.90)
[2018-09-27 04:21] LABS: Alanine Aminotransfer (ALT/SGP 113 U/L (12-78); Albumin/Globulin Ratio 0.4 (0.8-1.8); Alk Phos 120 U/L (50-136); Anion Gap 8 mmol/L (6-16); Aspartate Aminotrans (AST/SGOT 82 U/L (12-37); Bilirubin, Direct <0.1 mg/dL (0.0-0.3); Bilirubin, Indirect Unable to Calculate mg/dL (0.1-0.7); Bilirubin, Total 0.2 mg/dL (0.1-1.0); Blood Urea Nitrogen 20 mg/dL (8-24); Bun/Creatinine Ratio 26.2 (12.0-20.0); CO2, Blood 27 mmol/L (21-32); Calcium, Blood 7.5 mg/dL (8.5-10.1); Chloride, Blood 101 mmol/L (98-108); Creatinine, Blood 0.76 mg/dL (0.60-1.20); Globulin, Blood 4.6 g/dL (2.2-4.0); Glomerular Filtration Rate >60 (60-); Glucose, Blood 229 mg/dL (70-99); Phosphorus, Blood 2.6 mg/dL (2.5-4.9); Potassium, Blood 4.3 mmol/L (3.5-5.5); Sodium, Blood 136 mmol/L (136-145); Total Protein, Blood 6.6 g/dL (6.4-8.2)
[2018-09-27 04:28] LABS: CPK Creatine Kinase 373 U/L (39-308)
--- NOTE | 2018-09-27 06:44 | NUR ---
SHIFT SUMMARY: MONITOR INTACT SHOWING SINUS RHYTHM. HEART RATE 80'S-90'S. DENIES CHEST PAIN CO FOOT AND BACK PAIN. MEDICATED TWICE THIS SHIFT WITH DILUADID AND THREE TIMES THIS SHIFT WITH PERCOCET. LUNG SOUNDS CLEAR UPPER LOBES AND COARSE AND DECREASED IN THE BASES. RESPIRATIONS REGULAR AND EASY AT REST BECOMES SOB WITH EXERTION. HAS REMAINED ON 3L/M NASAL CANNULA SINCE MIDNOC. SPO2 90-97% ABDOMEN SOFT WITH BOWEL SOUNDS FOUR QUADS. HAS HAD TWO FORMED BOWEL MOVEMENTS THIS SHIFT. FEET REMAIN ELEVATED WHEN OOB IN CHAIR. HAS BEEN AWAKE MOST OF NOC DOzING AT INTERVALS. FAMILY SPENDING NOC IN ROOM. TOES REMAIN PURPLE ON TIPS WITH SCATTERED PUPLE AREAS. CONTINUE TO MONITOR AND REPORT CHANGE IN PATIENT CONDITION
--- NOTE | 2018-09-27 08:37 | NUR ---
PT DOWN TO 2L NC AND NO RESP. DISTRESS. PT C/O FEET HURTING AND REQUESTING MORE DILAUDID, HOWEVER CLINICAL PICTURE SL DIFFERENT AND WILL REEVAL. MEDS FOR PAIN MANAGEMENT IF POSS. LUNGS SOMEWHAT COARSE YET BUT OVERALL CLEARER. FEET SUBJECTIELY LOOK SOMEWHAT IMPROVED AND PT INDICATES THE SAME.
--- NOTE | 2018-09-27 10:53 | NUR ---
PT SETTING UP DANGLING AT SIDE OF BED AND CONT TO HAVE PAIN IN FEET. ENCOURAGED TO ELEVATE FEET AND SEE IF IT DECREASES THE PAIN. WILL FOLLOW.
--- NOTE | 2018-09-27 17:38 | NUR ---
PT HAS BEEN UP AND STANDING AT SIDE OF BED AND UP TO BSC X1. PT RESTLESS AND IS DOING WELL. SETTING IN A DANGLING POSITION PT ENCOURAGED TO NOT SIT WITH LEGS DOWN. VS. CONT AT 2L NC AND TOLERATING BEING UP AND MOVING W/O INC. SOB. PT VOIDING AND NS WITH ABX INFUSING VIA PICC.
--- NOTE | 2018-09-27 19:38 | NUR ---
1929 REPORT CALLED TO ENMANUEL OLSEN AND NOC SHIFT TO TRANSFER TO 335 PER W/C.
--- NOTE | 2018-09-27 20:01 | NUR ---
PT TRANSFERRED TO ROOM 335; HANDED OFF TO AMRITA SINGER. MEDS, CHART, AND BELONGINGS WITH PATIENT.
--- NOTE | 2018-09-28 04:26 | NUR ---
SHIFT SUMMARY PT TRANSFERRED FROM ICU TO 335. ALERT AND ORIENTED, PT STATES HE WANTS TO BE UNHOOKED FROM EVERYTHING SO THAT HE CAN GO OUTSIDE TO SMOKE. PT OFFERED A NICOTINE PATCH BUT REFUSES STATING HE HAS BAD DREAMS FROM THEM. PT INSISTANT ON GOING OUTSIDE. PT ARRIVED WITH OXYGEN ON AT 2L/NC, BUT HAS TAKEN IT OFF AND WILL NOT PUT IT BACK ON. TELE ON AND SHOWS NSR, RATE 88. NOO ACUTE EVENTS OVERNIGHT. PT SLEPT POORLY, REQUESTING PAIN MEICATION FREQUENTLY. WILL CONTINUE TO MONITOR.
[2018-09-28 08:27] LABS: BASOPHILS ABSOLUTE AUTO 0.03 K/mm3 (0.00-0.23); BASOPHILS PERCENT AUTO 0 % (0-2); EOSINOPHILS ABSOLUTE AUTO 0.23 K/mm3 (0.00-0.68); EOSINOPHILS PERCENT AUTO 2 % (0-6); Hematocrit 24.1 % (37.0-53.0); Hemoglobin 7.7 g/dL (13.5-17.5); IMMATURE GRAN ABSOLUTE AUTO 0.06 K/mm3 (0.00-0.10); IMMATURE GRAN PERCENT AUTO 1 % (0-1); LYMPHOCYTES ABSOLUTE AUTO 1.65 K/mm3 (0.84-5.20); LYMPHOCYTES PERCENT AUTO 15 % (21-46); MONOCYTES ABSOLUTE AUTO 0.58 K/mm3 (0.16-1.47); MONOCYTES PERCENT AUTO 5 % (4-13); Mean Corpuscular HGB 28.2 pg (26.0-34.0); Mean Corpuscular Volume 88 fL (80-100); Mean Platelet Volume 9.7 fL (9.1-12.4); NEUTROPHILS ABSOLUTE AUTO 8.85 K/mm3 (1.96-9.15); NEUTROPHILS PERCENT AUTO 78 % (41-73); Platelet Count 513 K/mm3 (150-400); RDW Coefficient Variation 15.2 % (11.7-14.2); RDW Standard Deviation 49.1 fL (35.1-46.3); Red Blood Cell Count 2.73 M/mm3 (4.30-5.90)
[2018-09-28 08:46] LABS: Alanine Aminotransfer (ALT/SGP 134 U/L (12-78); Albumin/Globulin Ratio 0.4 (0.8-1.8); Alk Phos 100 U/L (50-136); Anion Gap 7 mmol/L (6-16); Aspartate Aminotrans (AST/SGOT 82 U/L (12-37); Bilirubin, Total 0.4 mg/dL (0.1-1.0); Blood Urea Nitrogen 15 mg/dL (8-24); CO2, Blood 27 mmol/L (21-32); Calcium, Blood 7.7 mg/dL (8.5-10.1); Chloride, Blood 103 mmol/L (98-108); Creatinine, Blood 0.65 mg/dL (0.60-1.20); Globulin, Blood 4.6 g/dL (2.2-4.0); Glomerular Filtration Rate >60 (60-); Glucose, Blood 162 mg/dL (70-99); Phosphorus, Blood 2.7 mg/dL (2.5-4.9); Sodium, Blood 137 mmol/L (136-145); Total Protein, Blood 6.6 g/dL (6.4-8.2)
--- NOTE | 2018-09-28 15:37 | NUR ---
PT RETURNED FROM GOING ON A WALK OUTSIDE WITH SPOUSE. PT HAD STRONG ODOR OF MARIJANA. PT ADMITTED TO SMOKING IT OUTSIDE. PT EDUCATED ON CESSATION AND THAT USE OF THAT SUBSTANCE IS NOT ALLOWED IN THE HOSPITAL. PT WAS ALSO 77% ON RA. PT ON 4L AT THIS TIME AT 95%
[2018-09-28 17:18] LABS: Hematocrit 25.5 % (37.0-53.0)
--- NOTE | 2018-09-28 18:59 | NUR ---
SHIFT SUMMARY PT AXO. VSS. PT RUNNING SINUS TACH AT 103- 108 PER NEW VEHICLE SALES CONSULTANT. AT 1630 PT AND SPOUSE RETURNED FROM GOING OUTSIDE TO SMOKE WHEN NURSE NOTICED THAT PT SMELLED VERY STRONGLY OF MARIJUANA. PT ADMITTED TO SMOKING IT. NURSE EDUCATED PT ABOUT THAT NOT BEING ALLOWED WHILE PT IS ADMITTED OR ON CAMPUS. PT ALSO EDUCATED THAT NURSE WOULD HAVE TO NOTIFY DR TUCKER. DR TUCKER CALLED AT 1638 WHO ORDERED ALL PAIN MEDS BE DISCONTINUED. NURSE THEN SPOKE WITH DR. NIALL HUSTON WHO STATED THAT IF PATIENT NEEDS PAIN COVERAGE DURING THE NIGHT TO CALL HIM AND THEY CAN REASSESS AT THAT POINT THE NEED FOR MORE PAIN COVERAGE. PT REFUSED DRESSINGS ON FEET. PT CONTINUES TO WALK AROUND HIS ROOM DESPITE NON-WEIGHT BEARING STATUS. PT ALSO NON-COMPLIANT WITH ADA DIET AND EATS LARGE AMOUNTS OF FOOD. PT VOIDING INDEPENDENTLY IN URINAL.
--- NOTE | 2018-09-29 07:11 | NUR ---
pain not controlled without medication, dr prescribed fentynl short term effective, call light in reach, saline james, walking rounds completed with day staff
--- NOTE | 2018-09-29 09:48 | NUR ---
NOTIFIED PATIENT C/O PAIN ALL OVER AND FENTANYL NOT WORKING. MD WILL CHECK CHART.
[2018-09-29 10:22] LABS: BASOPHILS ABSOLUTE AUTO 0.03 K/mm3 (0.00-0.23); BASOPHILS PERCENT AUTO 0 % (0-2); EOSINOPHILS ABSOLUTE AUTO 0.22 K/mm3 (0.00-0.68); EOSINOPHILS PERCENT AUTO 2 % (0-6); Hematocrit 26.7 % (37.0-53.0); Hemoglobin 8.4 g/dL (13.5-17.5); IMMATURE GRAN ABSOLUTE AUTO 0.16 K/mm3 (0.00-0.10); IMMATURE GRAN PERCENT AUTO 1 % (0-1); LYMPHOCYTES ABSOLUTE AUTO 1.67 K/mm3 (0.84-5.20); LYMPHOCYTES PERCENT AUTO 11 % (21-46); MONOCYTES ABSOLUTE AUTO 0.62 K/mm3 (0.16-1.47); MONOCYTES PERCENT AUTO 4 % (4-13); Mean Corpuscular HGB 28.3 pg (26.0-34.0); Mean Corpuscular HGB Conc 31.5 g/dL (31.5-36.5); Mean Corpuscular Volume 90 fL (80-100); Mean Platelet Volume 9.7 fL (9.1-12.4); NEUTROPHILS PERCENT AUTO 82 % (41-73); Platelet Count 614 K/mm3 (150-400); RDW Standard Deviation 49.9 fL (35.1-46.3); Red Blood Cell Count 2.97 M/mm3 (4.30-5.90)
[2018-09-29 10:36] LABS: Alanine Aminotransfer (ALT/SGP 124 U/L (12-78); Albumin/Globulin Ratio 0.4 (0.8-1.8); Alk Phos 117 U/L (50-136); Anion Gap 8 mmol/L (6-16); Aspartate Aminotrans (AST/SGOT 45 U/L (12-37); Bilirubin, Total 0.2 mg/dL (0.1-1.0); Blood Urea Nitrogen 13 mg/dL (8-24); Bun/Creatinine Ratio 19.1 (12.0-20.0); CO2, Blood 25 mmol/L (21-32); Calcium, Blood 8.2 mg/dL (8.5-10.1); Chloride, Blood 101 mmol/L (98-108); Creatinine, Blood 0.68 mg/dL (0.60-1.20); Glomerular Filtration Rate >60 (60-); Glucose, Blood 260 mg/dL (70-99); Phosphorus, Blood 2.1 mg/dL (2.5-4.9); Potassium, Blood 4.5 mmol/L (3.5-5.5); Sodium, Blood 134 mmol/L (136-145)
--- NOTE | 2018-09-29 12:39 | NUR ---
ADVISED THAT PATIENT STS TORADOL DID NOT HELP. ORDERS PERCOCET 5/325 1 Q4 PRN
[2018-09-29 15:07] LABS: PANEL 138901 Negative (Negative)
--- NOTE | 2018-09-29 17:14 | NUR ---
ALERT, ORIENTED. MOANS WHEN RN IN ROOM, BUT SEEMS TO STOP WHEN RN LEAVES ROOM. SCABS BILATERAL HANDS AND SOME BILATERAL FEET. RT BOTTOM FOOT HAS QUARTER SIZE DRIED SCAB. LEFT FOOT TOES SLIGHTLY PURPLE ON TOP, BLACK SPOTS ON BOTTOM. PATIENT APPEARS TO BE SLEEPING COMFORTABLY BEFORE GIVEN AFTERNOON MED, BUT WHEN AWAKENED STS PAIN 7(1-10) AND THEN FALLS BACK TO SLEEP. BED IN LOW POSITION. CALL LIGHT WITHIN REACH. TELE ON. WILL CONTINUE TO MONITOR.
--- NOTE | 2018-09-30 03:54 | NUR ---
SHIFT SUMMARY PATIENT HAD NO ACUTE CHANGES OBSERVED THIS SHIFT. AXO X4 AND INDEPENDENT IN ROOM DESPITE NON-WEIGHT BEARING STATUS. SCHEDULE TORADOL GIVEN FOR BILATERAL FEET PAIN. PATIENT REPORTS PERCOCET GIVES HIM BETTER COVERAGE AND PERCOCET GIVEN X ONE PER EMAR. FINGER LIFT OPERATOR REPORTS NSR 92. CBG 160. PICC ASHTYN INTACT. PATIENT REPORTS REDUCED SWELLING IN FEET. PATIENT REFUSED DRESSING ON FEET. USES URINAL AT BEDSIDE. DENIES SOB AND N/V. CALL LIGHT IN REACH. BED IN LOWEST POSITION. WILL CONTINUE TO MONITOR UNTIL DAY SHIFT NURSE ASSUMES CARE.
[2018-09-30 05:58] LABS: BASOPHILS ABSOLUTE AUTO 0.04 K/mm3 (0.00-0.23); BASOPHILS PERCENT AUTO 0 % (0-2); EOSINOPHILS ABSOLUTE AUTO 0.34 K/mm3 (0.00-0.68); EOSINOPHILS PERCENT AUTO 3 % (0-6); Hematocrit 24.6 % (37.0-53.0); Hemoglobin 7.9 g/dL (13.5-17.5); IMMATURE GRAN ABSOLUTE AUTO 0.12 K/mm3 (0.00-0.10); IMMATURE GRAN PERCENT AUTO 1 % (0-1); LYMPHOCYTES ABSOLUTE AUTO 2.13 K/mm3 (0.84-5.20); LYMPHOCYTES PERCENT AUTO 17 % (21-46); MONOCYTES ABSOLUTE AUTO 0.72 K/mm3 (0.16-1.47); MONOCYTES PERCENT AUTO 6 % (4-13); Mean Corpuscular HGB 28.6 pg (26.0-34.0); Mean Corpuscular HGB Conc 32.1 g/dL (31.5-36.5); Mean Corpuscular Volume 89 fL (80-100); Mean Platelet Volume 9.5 fL (9.1-12.4); NEUTROPHILS ABSOLUTE AUTO 9.52 K/mm3 (1.96-9.15); NEUTROPHILS PERCENT AUTO 74 % (41-73); Platelet Count 659 K/mm3 (150-400); RDW Coefficient Variation 15.1 % (11.7-14.2); RDW Standard Deviation 49.4 fL (35.1-46.3); Red Blood Cell Count 2.76 M/mm3 (4.30-5.90); White Blood Cell Count 12.87 K/mm3 (4.00-11.30)
[2018-09-30 06:16] LABS: Alanine Aminotransfer (ALT/SGP 89 U/L (12-78); Albumin/Globulin Ratio 0.4 (0.8-1.8); Alk Phos 106 U/L (50-136); Anion Gap 8 mmol/L (6-16); Aspartate Aminotrans (AST/SGOT 26 U/L (12-37); Bilirubin, Total 0.2 mg/dL (0.1-1.0); Blood Urea Nitrogen 18 mg/dL (8-24); Bun/Creatinine Ratio 23.2 (12.0-20.0); CO2, Blood 26 mmol/L (21-32); Calcium, Blood 8.3 mg/dL (8.5-10.1); Chloride, Blood 103 mmol/L (98-108); Creatinine, Blood 0.78 mg/dL (0.60-1.20); Globulin, Blood 4.8 g/dL (2.2-4.0); Glomerular Filtration Rate >60 (60-); Glucose, Blood 225 mg/dL (70-99); Potassium, Blood 4.2 mmol/L (3.5-5.5); Sodium, Blood 137 mmol/L (136-145); Total Protein, Blood 6.8 g/dL (6.4-8.2)
--- NOTE | 2018-09-30 06:39 | NUR ---
PATIENT BP 176/109. APRESOLINE 10 MG IV GIVEN. REASSESS BP 151/96. CALL LIGHT IN REACH.
--- NOTE | 2018-09-30 18:41 | NUR ---
ASKED FOR SOMETHING TO HELP PATIENT TO SLEEP. REMERON 15 MG P.O. BEDTIME
--- NOTE | 2018-09-30 20:09 | NUR ---
CALL LIGHT IN REACH, IN CHAIR EATING FOOD. ATE 50% AND DRANK 236 ML. DOESNT WANT A SHOWER NOR HIS TEETH BRUSHED. INDEPENDANT.
--- NOTE | 2018-10-01 06:51 | NUR ---
SHIFT SUMMARY PT DID NOT SLEEP WELL AGAIN TONIGHT. ONLY SLEEPING APPROX 2 HOURS OF BROKEN SLEEP. WITNESSED PT BEING WHEELED OUT X 1 BY SO. LATER IN THE SHIFT ADJUSTER AND INSPECTOR REPORTED THAT IT SMELLED LIKE MARIJUANA IN AND AROUND PT'S ROOM. SPOKE W/ PT ABOUT IT WHO DENIED IT AND STATED THAT SMOKED BEFORE SHE CAME IN. EDUCATED PT ON IMPORTANCE OF NOT SELF MEDICATED. PT CONTINUED TO HAVE PAIN THROUGHOUT THE NIGHT IN HIS FEET. MEDICATED PER EMAR. EVEN AFTER MEDICATION PT REPORTED THAT PAIN LEVEL NEVER DROPPED BELOW A 6/10. AT BEDSIDE THROUGHOUT THE NIGHT. PT ANXIOUS AT TIMES. ON RA. HEART RATE STEADILY CLIMBING THIS EVENING. AFTER PT WAS OUTSIDE HEART RATE WAS UP IN THE 130'S. WILL MONITOR TO SEE IF HR SUSTAINS AND REPORT TO DAY RN. OTHERWISE NO ACUTE CHANGES. PT CONTINUES TO HAVE DRY NONPRODUCTIVE COUGH AND REPORTS GENERALLY NOT FEELING WELL.
--- NOTE | 2018-10-01 15:40 | NUR ---
SUMMARY PT IS A/O X3, GENERALLY PLEASANT HOWEVER STATE CONTINUING WEAKNESS/FATIGUE, SHORTNESS OF BREATH, PAIN BILAT FEET. STATE CONTINUES TO FEEL ILL. THIS AM HE WAS ON RA, BIOX LOW 80'S, RESPTHER PLACE ON 5L O2 TO GET BIOX 90-91%, LUNGS COARSE W CRACKLES, DR AMES NOTIFIED ORDER ONE TIME LASIX 40MG PO, GIVEN. HAVE ATTEMPTED TO TITRATE O2 DOWN, 91% 4L HOWEVER PT CONTINUES TO TAKE OFF N/C, STATE CAUSE "CLAUSTROPHOBIA" SO HAVE BEEN UNABLE TO TITRATE FURTHER HE CONTINUES SOB. R FOOT ULCER DRY. L TOES CONTINUE BLUISH, APPYING OINT/ORDER, PT DECLINES DRSG'S TO FEET. 2+ EDEMA LEGS. 3 LUMEN PICC PATENT, SL.
[2018-10-01 21:10] LABS: PCO2 Arterial 34.9 mmHg (35-45); PO2 Arterial 52.9 mmHg (80-100); pH Blood Arterial 7.48 (7.35-7.45)
[2018-10-01 21:44] LABS: BASOPHILS ABSOLUTE AUTO 0.05 K/mm3 (0.00-0.23); BASOPHILS PERCENT AUTO 0 % (0-2); EOSINOPHILS ABSOLUTE AUTO 0.24 K/mm3 (0.00-0.68); EOSINOPHILS PERCENT AUTO 1 % (0-6); Hematocrit 25.4 % (37.0-53.0); IMMATURE GRAN ABSOLUTE AUTO 0.17 K/mm3 (0.00-0.10); IMMATURE GRAN PERCENT AUTO 1 % (0-1); LYMPHOCYTES PERCENT AUTO 9 % (21-46); MONOCYTES PERCENT AUTO 5 % (4-13); Mean Corpuscular HGB Conc 31.5 g/dL (31.5-36.5); Mean Corpuscular Volume 89 fL (80-100); Mean Platelet Volume 9.6 fL (9.1-12.4); NEUTROPHILS ABSOLUTE AUTO 18.26 K/mm3 (1.96-9.15); NEUTROPHILS PERCENT AUTO 84 % (41-73); Platelet Count 697 K/mm3 (150-400); RDW Coefficient Variation 15.1 % (11.7-14.2); RDW Standard Deviation 49.1 fL (35.1-46.3); Red Blood Cell Count 2.86 M/mm3 (4.30-5.90); White Blood Cell Count 21.72 K/mm3 (4.00-11.30)
--- NOTE | 2018-10-01 22:15 | NUR ---
[place] of Care: Patient arrived to until at 2225hr via w/c accompanied by Medical floor RN Francisca. Stood and transferred to bed without difficulty. Appears SOB breath but states to feel much better than previous 2-3hr. Arrived on 15L/non-rebreather (for transfer) mask, O2-70's-80's. Placed on Airvo at 60L, 94% FiO2, O2% increased to 94-100%. Approx 30min after arrival patient fell asleep, now shows no signs of dyspnea/SOB. C/o pain to bilateral feet, prn Percocet given on medical floor before transfer, patient's sates prn is helping/effective. Closed ulcer wound to bottom of rt foot, near great toe, open to air. Dark purple discoloration throughout portions of lt toes, also open to air. Will apply Bactroban ointment and dress with dry dressings per orders. Pulses positive to bilateral feet, capillary refill wnl. PICC line to MAT patent and intact, Abx started at this time. Call light in reach, makes needs known. Will continue to monitor for pain, comfort, safety.
[2018-10-01 23:16] LABS: U Amphetamine Screen Not Detected; U Barbituate Screen Not Detected; U Benzodiazapine Screen Not Detected; U Buprenorphine Screen Not Detected; U Cannabinoids Screen DETECTED; U Cocaine Screen Not Detected; U Methadone Screen Not Detected; U Methamphetamine Screen Not Detected; U Opiates Screen Not Detected; U Oxycodone Screen DETECTED; U Phencyclidine Screen Not Detected; U Propoxyphene Screen Not Detected
--- NOTE | 2018-10-01 23:33 | NUR ---
TRANSFER DURING REPORT, THE DAY SHIFT RN STATED THAT THE PT HAD BEEN INCREASINGLY SOB THROUGHOUT THE DAY, THAT HE HAD BEEN SATTING IN THE 80S THOUGH IT WAS DIFFICULT TO GET A GOOD O2 SAT READING. RESPIRATORY THERAPY WAS ASSESSING THE PT AT SHIFT CHANGE, AND SHE REPORTED THAT SHE BUMPED HIM UP TO 11 L VIA OXIMIZER AND THAT HE WAS SATTING AROUND 90%. WHEN THIS RN ASSESSED THE PT, HE REPORTED THAT HE FELT "CRAPPY", BUT COULDN'T SPECIFY ANY MORE THAN THAT. THE CARGO SUPERVISOR RECHECKED HIS O2 SATS AT 194, WHICH WERE AT 83% ON THE 11L O2. RESPIRATORY THERAPY WAS ASKED TO ASSESS. WHEN RT ENTERED, THE PT WAS VISIBLY SHORT OF BREATH, AND SATTING AROUND 80%. RT BUMPED HIM UP TO 15 L VIA NONREBREATHER, AND THE PT WAS STILL SATTING AROUND 87%. THE HOSPITALIST ALEX PRAJAPATI WAS CONSULTED AT APPROXIMATELY 2039, AND HE SAID THAT HE WOULD COME UP TO ASSESS THE PT, AND POSSIBLY TRANSFER THE PT TO A HIGHER LEVEL OF CARE IF WARRANTED. LABS, AN ABG AND A CHEST X-RAY WERE ORDERED. PER ALEX PRAJAPATI'S ORDERS, PT WAS TRANSFERED TO ICU 16 AT 2219.
[2018-10-02 04:01] LABS: BASOPHILS ABSOLUTE AUTO 0.04 K/mm3 (0.00-0.23); BASOPHILS PERCENT AUTO 0 % (0-2); EOSINOPHILS ABSOLUTE AUTO 0.33 K/mm3 (0.00-0.68); EOSINOPHILS PERCENT AUTO 2 % (0-6); IMMATURE GRAN ABSOLUTE AUTO 0.16 K/mm3 (0.00-0.10); IMMATURE GRAN PERCENT AUTO 1 % (0-1); LYMPHOCYTES ABSOLUTE AUTO 2.24 K/mm3 (0.84-5.20); LYMPHOCYTES PERCENT AUTO 12 % (21-46); MONOCYTES ABSOLUTE AUTO 1.04 K/mm3 (0.16-1.47); MONOCYTES PERCENT AUTO 6 % (4-13); Mean Corpuscular HGB 28.4 pg (26.0-34.0); Mean Corpuscular Volume 89 fL (80-100); Mean Platelet Volume 9.3 fL (9.1-12.4); NEUTROPHILS ABSOLUTE AUTO 14.89 K/mm3 (1.96-9.15); NEUTROPHILS PERCENT AUTO 80 % (41-73); Platelet Count 695 K/mm3 (150-400); RDW Coefficient Variation 15.3 % (11.7-14.2); RDW Standard Deviation 50.3 fL (35.1-46.3); Red Blood Cell Count 2.82 M/mm3 (4.30-5.90)
--- NOTE | 2018-10-02 04:07 | NUR ---
Decreased O2% Patient woke and become SOB with only sitting self up in bed. O2% decreased to 60's-70's while on Airvo, lung sounds show significant increase in coarse crackles throughout. Placed patient on CPAP of 10, O2 increased to high 80's-low90's. Received order per Dr. Keyes for 1mg Ativan to help patient tolerate CPAP mask. Contacted Dr. Wayne after patient's O2 again decrease to mid 80's. Received orders for 40mg Lasix and 1mg Morphine, both given at this time. CPAP pressure also increased to 12. Patient tolerating mask well at this time. O2 increased to 98%, FiO2 remains at 100%, respiratory rate decreased from low 40's to 35-37. Will continue to monitor.
[2018-10-02 04:19] LABS: Alanine Aminotransfer (ALT/SGP 50 U/L (12-78); Albumin, Blood 2.1 g/dL (3.4-5.0); Albumin/Globulin Ratio 0.4 (0.8-1.8); Alk Phos 118 U/L (50-136); Anion Gap 9 mmol/L (6-16); Aspartate Aminotrans (AST/SGOT 18 U/L (12-37); Bilirubin, Total 0.4 mg/dL (0.1-1.0); Blood Urea Nitrogen 23 mg/dL (8-24); Bun/Creatinine Ratio 28.8 (12.0-20.0); CO2, Blood 27 mmol/L (21-32); Calcium, Blood 8.2 mg/dL (8.5-10.1); Chloride, Blood 103 mmol/L (98-108); Globulin, Blood 5.2 g/dL (2.2-4.0); Glomerular Filtration Rate >60 (60-); Glucose, Blood 162 mg/dL (70-99); Magnesium, Blood 2.2 mg/dL (1.6-2.4); Potassium, Blood 4.6 mmol/L (3.5-5.5); Sodium, Blood 139 mmol/L (136-145); Total Protein, Blood 7.3 g/dL (6.4-8.2)
--- NOTE | 2018-10-02 05:00 | NUR ---
DECREASED O2 SATS DR TIERNEY NOTIFIED OF O2 SATS MID-80s AND INCREASE IN ANXIETY. RESP RATEHIGH 30s. PT IS DYSPNEIC. BP 198/100. MONITOR SHOWS ST, RATE 130s. PT REMAINS ON CPAP 12. NEW ORDER RECEIVED FOR ATIVAN 2MG IV AT THIS TIME.
[2018-10-02 06:09] LABS: PCO2 Arterial 63.7 mmHg (35-45); PO2 Arterial 40.9 mmHg (80-100); pH Blood Arterial 7.23 (7.35-7.45)
--- NOTE | 2018-10-02 07:43 | NUR ---
Shift Summary: See previous notes r/t decreasing O2% and placement of CPAP mask. O2% continued to be 70's-80's, respiratory rate 35-42, and continued anxiety despite prn Ativan and use of CPAP of 12, 100% FiO2. Contacted Dr. Wayne and received orders to intubated patient. Dr. Keyes contacted to come perform intubation. Patient intubated at 0537hr with 8.0 ETT, 24cm at teeth, AC-18/500/12/100%. O2 remained 70's-80's. 20mg Etomidate, followed by 150mg Succinylcholine given immediately prior to intubation. Received verbal order per Dr. Keyes for propofol gtt. OG tube also placed shortly after intubation, clamped. Patient became hypotensive shortly after intubation. Received orders per Dr. Wayne for 250ml NS bolus, Levophed gtt, and precedex gtt if needed for sedation. Dr. Wayne concerned that Propofol may be cause of patient's hypotension. Propofol gtt decreased from 50mcg to 5mcg per hypotension and pt remained sedated until just prior to end of shift. Levophed gtt started at 10mcg/min just prior to end of shift, systolic BP increasing from 70's-80's to 90's. Report given to day shift RN Orly.
[2018-10-02 08:24] LABS: Creatine Kinase MB 2.4 ng/mL (0.0-3.6); Creatine Kinase MB Index 3.1 (0.0-4.0); Troponin I 0.054 ng/mL (0.000-0.040)
[2018-10-02 10:06] LABS: International Normalized Ratio 1.29; Prothrombin Time Results 13.4 Sec (9.7-11.5)
--- NOTE | 2018-10-02 13:32 | NUR ---
ECHOCARDIOGRAM COMPLETE
--- NOTE | 2018-10-02 14:03 | NUR ---
PT VERY PALE/TERRY AND DIAPHORETIC AT 0715. LEVOPHED AT 10MCG, PROPOFOL AT 5MCG, PT AWAKE AND AGITATED; SITTING UP IN BED WITH EYES OPEN, NOT ABLE TO FOLLOW COMMANDS. SATS DROPPED INTO LOW 80'S POSSIBLY D/T AGITATION/ANXIETY. PROPOFOL INCREASED TO 20MCG, LEVOPHED INCREASED TO 14MCG. PT'S SATS IMPROVED >90% WITH INCREASE IN SEDATION. DR TIERNEY CALLED AND NOTIFIED OF PT'S CONDITION; LABS ORDERED. PT GIVEN 1.5L NS BOLUS T/O FIRST HALF OF SHIFT ALONG WITH 3 DOSES OF ALBUMIN IV. THIS FLUID HELPED PTS BP IMPROVE, LEVOPHED TITRATED DOWN TO 8MCG BY 1010. PT WITH LOW URINE OUTPUT WHICH WAS SOMEWHAT RESPONSIVE TO FLUIDS. URINE OUTPUT DOWN TO 5CC AT 1300 WELL BP. 500CC BOLUS WITH ALBUMIN TO FOLLOW ORDERED. PT'S CAME IN; FULL UPDATE GIVEN TO HER. PROPOFOL AT 30MCG; PT CALM AND AROUSES TO STIMULI; STILL UNABLE TO FOLLOW DIRECTION. PT TEMP DOWN TO 99.8; PT CONTINUES TO BE PRFOUNDLY DIAPHORETIC. LINEN CHANGED. BEDSIDE BRONCH PLANNED FOR THIS AFTERNOON W DR TIERNEY. CATHFLO PLACED TO WHITE PORT AND IS NOW PATENT. FEET CLEANED, ANTIBIOTIC OINTMENT PLACED, GAUZE WRAP PLACED TO PROTECT FEET.
--- NOTE | 2018-10-02 17:13 | NUR ---
BED SIDE BRONCHOSCOPY STARTED AT 1650, ENDED AT 1700. WASH TAKEN OF RIGHT LOBE X2. SPECIMENS SENT TO LAB. PT TOLERATED PROCEDURE WELL. URINE OUTPUT REMAINS MINIMAL AT 5CC/HR ON AVERAGE. 1L NS BOLUS GIVEN AT APPROX 1600. HEART RATE IS IN 80'S; HE WAS SINUS TACHYCARDIA 120-130 THIS AM. PT WAS GIVEN ATIVAN 2MG AND FENT 50MCG FOR PROCEDURE
--- NOTE | 2018-10-02 19:33 | NUR ---
[place] of Care: Patient intubated, and sedated. Vent to AC 18/500/13/90, O2- 97-98%, respiratory rate- 28-37. Pupils equal and reactive, but patient otherwise unresponsive. Propofol at 25mcg/kg/min, recently decreased by day shift RN, will continue decrease Propofol as patient remains calm/comfortable, no s/s of pain at this time. Levophed infusing at 14mcg/min, BP and HR stable. LR infusing at 75ml/hr. PICC line patent and intact, infusing without difficulty. Paredes cath patent and intact, but minimal output of clear yellow urine noted. Will continue to monitor for pain, comfort, safety.
--- NOTE | 2018-10-02 19:46 | NUR ---
PT REMAINS ON LEVOPHED AT 14MCG. PROPOFOL TITRATED DOWN TO 25MCG. PT GRIMACES W NOXIOUS STIMULI. COUGH AND GAG PRESENT. DOES NOT FOLLOW DIRCTIONS. URINE OUTPUT REMAINS POOR. DR TIERNEY GIVEN FULL UPDATE AT 1800; WILL CONT TO MONITOR CLOSELY. PT AFEBRILE; DIAPHORESIS HAS DECREASED. PT'S COLOR SLIGHTLY PINK AND THUS SOMEWHAT IMPROVED. OG CLAMPED; PREDNISONE STARTED PT THIS EVENING. REPORT GIVEN TO FELIPE CROWE
[2018-10-02 22:01] LABS: PCO2 Arterial 39.6 mmHg (35-45); PO2 Arterial 121 mmHg (80-100); pH Blood Arterial 7.35 (7.35-7.45)
[2018-10-03 03:44] LABS: BASOPHILS ABSOLUTE AUTO 0.03 K/mm3 (0.00-0.23); BASOPHILS PERCENT AUTO 0 % (0-2); EOSINOPHILS PERCENT AUTO 0 % (0-6); IMMATURE GRAN PERCENT AUTO 2 % (0-1); LYMPHOCYTES ABSOLUTE AUTO 0.83 K/mm3 (0.84-5.20); LYMPHOCYTES PERCENT AUTO 4 % (21-46); MONOCYTES PERCENT AUTO 4 % (4-13); Mean Corpuscular HGB 28.7 pg (26.0-34.0); Mean Corpuscular HGB Conc 31.8 g/dL (31.5-36.5); Mean Corpuscular Volume 90 fL (80-100); Mean Platelet Volume 9.7 fL (9.1-12.4); NEUTROPHILS ABSOLUTE AUTO 17.28 K/mm3 (1.96-9.15); NEUTROPHILS PERCENT AUTO 90 % (41-73); Platelet Count 418 K/mm3 (150-400); RDW Coefficient Variation 15.8 % (11.7-14.2); RDW Standard Deviation 51.9 fL (35.1-46.3); Red Blood Cell Count 2.44 M/mm3 (4.30-5.90); White Blood Cell Count 19.24 K/mm3 (4.00-11.30)
[2018-10-03 04:06] LABS: Albumin, Blood 2.5 g/dL (3.4-5.0); Anion Gap 12 mmol/L (6-16); Blood Urea Nitrogen 40 mg/dL (8-24); Bun/Creatinine Ratio 19.8 (12.0-20.0); CO2, Blood 22 mmol/L (21-32); Calcium, Blood 7.2 mg/dL (8.5-10.1); Chloride, Blood 105 mmol/L (98-108); Creatinine, Blood 2.02 mg/dL (0.60-1.20); Glomerular Filtration Rate 38 (60-); Glucose, Blood 240 mg/dL (70-99); Phosphorus, Blood 6.6 mg/dL (2.5-4.9); Potassium, Blood 5.2 mmol/L (3.5-5.5); Sodium, Blood 139 mmol/L (136-145)
[2018-10-03 04:08] LABS: Troponin I 0.629 ng/mL (0.000-0.040)
--- NOTE | 2018-10-03 06:39 | NUR ---
Shift Summary: Patient remained on AC 18/500/13, FiO2 decreased from 90% to 50% throughout shift, O2-94-96%. Respiratory rate in low 30's-low 40's throughout shift, increased mostly after cares/repositioning, PRN fentanyl and Versed given with good effect noted. Patient remained unresponsive for majority of shift but began to show facial grimace with oral care and noxious stimuli. Propofol titrated between 20-40mcg throughout shift to help control respiratory rate and breath stacking. Levophed gtt titrated down from 14mcg, and placed on stand-by at approx 0400hr. BP remained stable throughout shift. PICC line remains patent and intact. Paredes cath remains patent and intact, draining clear yellow urine. Received order per Dr. Wayne for x1 unit of PRBC's, per HGB of 7.0 with morning labs. Unit ready slip received at this time. Will continue to monitor until report to day shift RN.
--- NOTE | 2018-10-03 08:21 | NUR ---
CARE ASSUMED CARE AND REPORT ASSUMED FROM FELIPE CROWE. PT INTUBATED AND SEDATED. VENT AC 18, TV 500, PEEP 13, FIO2 50%. LUNG SOUNDS COARSE. PROPOFOL GTT INCREASED TO 40 MCG/KG/MIN TO HELP WITH STACKING OF BREATHS AND RELAXATION. 1 UNIT PRBCS STARTED AND INFUSING. LR INFUSING AT 75 ML/HR PER ORDER. PUPILS REACTIVE. BUE RESTRAINED. LEVY CATH SECURED AND PATENT; WILL MONITOR URINE OUTPUT. TOES HAVE HEALING, SCABBED AND PURPLISH WOUNDS; BACTROBAN APPLIED. FEET AND LEGS ELEAVTED TOLERATED. TEMP 99.0; WILL MONITOR.
[2018-10-03 08:23] LABS: Vancomycin, Trough 31.7 ug/mL (5.0-10.0)
--- NOTE | 2018-10-03 11:35 | NUR ---
REASSESSMENT PT REMAINS INTUBATED AND SEDATED. VENT PS 8, PEEP 10, FIO2 40%. LUNG SOUNDS REMAIN COARSE. BUE RESTRAINED. PROPOFOL GTT AT 40 MCG/KG/MIN. FENTANYL 50 MCG IVP GIVEN AT THIS TIME DUE TO INCREASED RR AND PT GRIMACING. PT HAD LARGE, SMEARY BM THIS AM. LR INFUSING AT 75 ML/HR PER ORDER. WILL START TUBE FEEDS. HOB ELEVATED AND PT TURNED. WILL CONTINUE TO MONITOR.
[2018-10-03 12:52] LABS: Performing Lab SYMBIOTICS; Test Name FLOW CYTOMETRY
--- NOTE | 2018-10-03 16:56 | NUR ---
REASSESSMENT NO CHANGES SINE PRIOR ASSESSMENT. PT REMAINS ON VENTILATOR PS 8, PEEP 10, FIO2 40% WITH PROPOFOL GTT AT 40 MCG/KG/MIN. SEDATION VACATION LASTING 20 MINUTES; PT ABLE TO FOLLOW COMMANDS AND TRACK AROUND ROOM. TOLERATING TF AT 20 ML/HR. WILL CONTINUE TO MONITOR.
--- NOTE | 2018-10-03 18:00 | NUR ---
SHIFT SUMMARY PT REMAINED INTUBATED AND SEDATED ENTIRE SHIFT EXCEPT DURING SEDATION VACATION. HAS TOELRATED SPONTANEOUS WITH PS 8 AND PEEP 10 SINCE 0900. STARTED TF THIS AFTERNOON AND PT TOLERATING THUS FAR. PT HAD 2 LARGE SOFT BOWEL MOVEMENTS TODAY. HOB ELEVATED AND PT TURNED Q2H. RECIEVED BED CPT FOR 20 MINUTES AND TOELRATED. SMALL AMOUNTS OF THICK, YELLOW SECRETIONS FROM ETT. ETT ADVANCED BY RT PER MD REQUEST THIS AM. HAS REMAINED IN BUE ENTIRE SHIFT. LR INFUSING AT 75 ML/HR PER ORDER. WILL CONTINUE TO MONITOR.
--- NOTE | 2018-10-03 19:15 | NUR ---
ASSUMING CARE OF PT AT THIS TIME. PT REPORT RECEIVED AT BEDSIDE WITH OFFGOING NURSE, LEEANN CROWE. PT LAYING IN BED, INTUBATED, AND SEDATED UPON ENTERING THE ROOM. VS STABLE - SEE VS FS. PT DOES NOT APPEAR TO BE IN DISTRESS AT THIS TIME. WILL REVIEW PLAN OF CARE.
--- NOTE | 2018-10-03 19:30 | NUR ---
ASSESSMENT PT CALM, QUIET, COOPERATIVE, RESPONDS TO VERBAL AND PAINFUL STIMULI, OPENS EYES TO SOUND, DOES NOT FOLLOW COMMANDS, NOT NODDING HEAD Y/N TO QUESTIONS. SLUGGHISH PUPIL RESPONSES. PROPOFOL DRIP 50 MCG/KG/MIN - WILL TITRATE TO EFFEECT. KOBI SENSATION. PT BAUMAN. WEAKNESS NOTED. NO S/SX OF PAIN/DISCOMFORT NOTED. CNVI 0. PT IN BILAT WRIST RESTRAINTS TO PROTECT VITAL LINES/CORDS/TUBES AND TO PROTECT FROM SELF-EXTUBATION. LUNGS COARSE. VENT: PS 8, PEEP 10, FIO2 40%. OXY SAT >90%. RR 20'S. SUCTION VIA ETT: SMALL AMOUNTS OF THICK YELLOW SECRETIONS. TEMP 99.5 - BLANKETS OFF, ROOM TEMP DOWN, TURNED FAN ON. ST. HR 100'S. BP STABLE - SEE VS FS. STRONG PUSLES. FAINT TIBIAL AND PEDAL PULSES. EDEMA NOTED. SKIN WARM, PINK, SLIGHTLY DIAPHORETIC. HYPOACTIVE BT X4 QUADRANTS. ABD SOFT, NONTENDER, MOD DIST. OG IN PLACE. TF: PIVOT 1.5 AT 20 ML/HR AND 30 ML FLUSH Q4 HR. RESIDUAL 0. PER REPORT - BM X2 THIS AM. F/C: CLEAR, YELLOW URINE. PICC ASHTYN. NS TKO AT 10 ML/HR. LR AT 75 ML/HR.
--- NOTE | 2018-10-03 20:30 | NUR ---
TUBE FEEDING TUBE FEEDING: PIVOT 1.5 TITRATED TO GOAL RATE 30 ML/HR AND 30 ML FLUSH Q4 HR. RESIDUAL 0.
[2018-10-04 03:46] LABS: BASOPHILS ABSOLUTE AUTO 0.02 K/mm3 (0.00-0.23); BASOPHILS PERCENT AUTO 0 % (0-2); EOSINOPHILS ABSOLUTE AUTO 0.03 K/mm3 (0.00-0.68); EOSINOPHILS PERCENT AUTO 0 % (0-6); Hematocrit 23.4 % (37.0-53.0); Hemoglobin 7.5 g/dL (13.5-17.5); IMMATURE GRAN PERCENT AUTO 1 % (0-1); LYMPHOCYTES ABSOLUTE AUTO 1.46 K/mm3 (0.84-5.20); LYMPHOCYTES PERCENT AUTO 9 % (21-46); MONOCYTES ABSOLUTE AUTO 1.09 K/mm3 (0.16-1.47); MONOCYTES PERCENT AUTO 7 % (4-13); Mean Corpuscular HGB 28.3 pg (26.0-34.0); Mean Corpuscular HGB Conc 32.1 g/dL (31.5-36.5); Mean Corpuscular Volume 88 fL (80-100); Mean Platelet Volume 10.3 fL (9.1-12.4); NEUTROPHILS ABSOLUTE AUTO 13.64 K/mm3 (1.96-9.15); NEUTROPHILS PERCENT AUTO 83 % (41-73); NRBC ABSOLUTE 0.06 K/mm3 (0.00-0.02); NRBC Auto 0.4 /100 WBC (0.0-0.2); Platelet Count 457 K/mm3 (150-400); RDW Coefficient Variation 15.7 % (11.7-14.2); RDW Standard Deviation 50.9 fL (35.1-46.3); Red Blood Cell Count 2.65 M/mm3 (4.30-5.90); White Blood Cell Count 16.44 K/mm3 (4.00-11.30)
[2018-10-04 04:08] LABS: Albumin, Blood 2.3 g/dL (3.4-5.0); Anion Gap 10 mmol/L (6-16); Blood Urea Nitrogen 40 mg/dL (8-24); Bun/Creatinine Ratio 22.3 (12.0-20.0); CO2, Blood 24 mmol/L (21-32); Calcium, Blood 7.7 mg/dL (8.5-10.1); Chloride, Blood 108 mmol/L (98-108); Creatinine, Blood 1.79 mg/dL (0.60-1.20); Glomerular Filtration Rate 44 (60-); Glucose, Blood 286 mg/dL (70-99); Magnesium, Blood 2.6 mg/dL (1.6-2.4); Phosphorus, Blood 3.7 mg/dL (2.5-4.9); Potassium, Blood 4.6 mmol/L (3.5-5.5); Sodium, Blood 142 mmol/L (136-145); Vancomycin, Random 16.5 ug/mL
--- NOTE | 2018-10-04 04:45 | NUR ---
DR. SOTO CALLED DR. SOTO AT THIS TIME. INFORMED DR. SOTO OF AM LABS. DR. SOTO DOES NOT WANT TO ORDER PRBC AT THIS TIME. DR. SOTO INCREASED HUMALOG TO HSS. WAITING FOR VERIFICATON OF MEDICATION FROM PHARMACY AT THIS TIME.
--- NOTE | 2018-10-04 05:11 | NUR ---
SHIFT ASSESSMENT NO ACUTE CHANGES NOTED T/O SHIFT. INCREASED AGITATION WITH DECREASED PROPOFOL, OTHERWISE CALM, RESOPNDS TO VERBAL AND PAINFUL STIMULI, FOLLOWS COMMANDS DURING SEDATION VACATION (ABLE TO WIGGLE TOES AND HAZARDOUS MATERIALS TANKER DRIVER BILAT ON COMMAND), NODDED HEAD Y/N DURING SEDATION VACATION, OPENED EYES SPONT DURING SEDATION VACATION. SLUGGISH PUPIL RESPONSES. PROPOFOL DRIP CURRENTLY AT 50 MCG/KG/MIN - CONT TO TITRATE TO EFFECT. PT NODDED HEAD YES TO SENSATION BUE'S, NO TO N/T BUE'S, AND YES TO N/T BLE'S. PT BAUMAN. WEAKNESS NOTED. PT MOVED LEFT SIDE MORE THAN RIGHT SIDE. S/SX OF PAIN/DISCOMFORT NOTED T/O SHIFT. PT NODDED HEAD YES TO PAIN/DISCOMFORT D/T INTUBATION AND BLE'S. CONT TO ASSESS FOR PAIN/DISCOMFORT AND MEDICATED WITH FENT PER PHYSICIAN'S ORDER / UTILIZED NONPHARM METHODS. PT IN BILAT WRIST RESTRAINTS TO PROTECT VITAL LIENS/CORDS/TUBES AND TO PROTECT FROM SELF-EXTUBATION. LUNGS COARSE. VENT SETTINGS: PS 8, PEEP 10, FIO2 40%. OXY SAT >90%. RR 15 TO 40'S. SUCTION VIA ETT: SMALL AMOUNTS OF THICK YELLOW SECRETIONS. TMAX 99.8 - BLANKETS OFF, ROOM TEMP DOWN, TURNED FAN ON. CURRENT TEMP 99.0. NSR TO ST. HR 90'S TO 110'S. BP STABLE - SEE VS FS. STRONG PULSES. FAINT TIBIAL AND PEDAL PULSES. EDEMA NTOED. SKIN WARM, PINK, CURRENTLY DRY, SLIGHTLY DIAPHORETIC T/O SHIFT. INCREASED TEMP, RR, HR, AND BP NOTED WITH AGITATION AND DECREASED SEDATION. HYPOACTIVE BT X4 QUADRANTS. ABD SOFT, NONTENDER, MOD DIST. OG IN PLACE. TF: PIVOT 1.5 AT GOAL RATE 30 ML/HR AND 30 ML FLUSH Q4 HR. RESIDUAL WNL. BM X1 T/O SHIFT. F/C: CLEAR, YELLOW URINE NOTED. PICC ASHTYN. NS TKO AT 10 ML/HR. LR AT 75 ML/HR. WILL CONT TO MONITOR PT AND WILL PROVIDE BEDSIDE REPORT TO ONCOMING NURSE THIS AM.
[2018-10-04 05:18] LABS: PCO2 Arterial 36.4 mmHg (35-45); PO2 Arterial 66.4 mmHg (80-100); pH Blood Arterial 7.43 (7.35-7.45)
--- NOTE | 2018-10-04 07:30 | NUR ---
Recieved report from Dara CROWE. Patient lying in bed with HOB at 30 degrees. He isntubated with 8.0 ET and 26cm at teeth. His settings are spon. PS 8, PEEP 10.0 Fio2 40% and sats 94%. He has OG on place infusing Pivot 1.5 ay 30ml goal rate and with 30ml water flushes Q4 and minimal residuals less than 20ml's. He has PICC line in ASHTYN dressing intact and site WNL and is infusing Propofol at 50 mcg/kg/min, LR at 75 ml/hr and NS TKO. He has 16 Fr. temp willson draining to gravity yellow urine He has bactrban on toes, right foot with just some peeling slin and reacts to touch and left foot 2nd and 3rd toe atr black half way down toes and other toes have black dots around them very small. He is in bilateral soft wrist restraints and removed and skin checked and replaced. He opens eyes to stimuli.
--- NOTE | 2018-10-04 09:49 | NUR ---
Dr Moy has been by to see patient and no vent setting changes. Temp 98.6. Medicate for pain to help with systolic. His right lower arm is looking larger so Dr Moy is ordering US for possible DVT.
--- NOTE | 2018-10-04 11:30 | NUR ---
Dr Moy Tried to put him back on AC mode for rate control and failed quicky. Vent settings back to am setting on spontaneous mode. US will be here around noon for UE's. No other changes with patient. Gtt's remain the same.
--- NOTE | 2018-10-04 13:30 | NUR ---
The was a friend that stopped by and was threatening staff, came by shortly and asked us not to allow her in and I posted note by each entry phone. US was by and DVT's in RUE and talke with Dr Moy about Heparin therapy per pharmacy.
--- NOTE | 2018-10-04 15:30 | NUR ---
Heparin started with 5000 bolus and continuous 15 units/kr/hr at 80 kg weight. He continues to be hypertensive and Dr Moy informed, gave 2 mg Ativan and came dwn shortly.
--- NOTE | 2018-10-04 18:00 | NUR ---
Changed TF out and newe line set. Going to give another 2 mg Ativan. He has small brown soft stool and changed burrell. No changes in vent settings Spon. PS 8, PEEP 10, FiO2 45% and low 90%'s. < than 10ml residual when changing TF out. Propofol continues at 50mcg/kg/min, LR at 75ml/hr, Heparin 15 units/kg/hr and TF of Pivot 1.5 at 30ml/hr goal rate with 30ml water flush q4. Paredes output was 2200.
--- NOTE | 2018-10-04 19:15 | NUR ---
ASSUMED CARE ASSUMED CARE OF PATIENT. REMAINS INTUBATED- PS 8, PEEP 10, FIO2 45%, RR 25-35. SEDATED WITH PROPOFOL @ 50MCG/KG/MIN. OPENS EYES TO VERBAL STIMULI. SQUEEZES HANDS TO COMMAND. POSITIVE GAG AND COUGH NOTED. ANDREA, 3MM. BILATERAL SOFT WRIST RESTRAINTS REMAIN IN PLACE TO PREVENT SELF-EXTUBATION. MONITOR SHOWS ST, RATE 100-105. SBP 170S. TEMP 99.3F VIA LEVY TEMP PROBE. OG WITH PIVOT 1.5 AT GOAL RATE OF 30CC/HR. LEVY PATENT AND DRAINING CLEAR YELLOW URINE. LR INFUSING @ 75CC/HR. HEPARIN GTT INFUSING @ 15UNITS/KG/HR (24CC/HR) PER PHARMACY. ASHTYN PICC NOTED. ASHTYN WITH 2+ EDEMA NOTED. BILATERAL HANDS ARE EDEMATOUS. REMAINS IN CONTACT ISOLATION FOR MRSA IN A WOUND. SEE PICS AND SKIN CARE DOCUMENTATION FOR CURRENT WOUNDS. SEE SHIFT ASSESSMENT FOR FULL ASSESSMENT.
--- NOTE | 2018-10-04 21:34 | NUR ---
HEPARIN GTT HEPARIN BOLUS OF 4000 UNITS IV GIVEN PER ORDER AND HEPARIN GTT INCREASED TO 17UNITS/KG/HR PER PHARMACY.
[2018-10-05 04:24] LABS: BASOPHILS ABSOLUTE AUTO 0.02 K/mm3 (0.00-0.23); BASOPHILS PERCENT AUTO 0 % (0-2); EOSINOPHILS ABSOLUTE AUTO 0.09 K/mm3 (0.00-0.68); EOSINOPHILS PERCENT AUTO 1 % (0-6); Hematocrit 23.5 % (37.0-53.0); Hemoglobin 7.5 g/dL (13.5-17.5); IMMATURE GRAN ABSOLUTE AUTO 0.16 K/mm3 (0.00-0.10); IMMATURE GRAN PERCENT AUTO 1 % (0-1); LYMPHOCYTES ABSOLUTE AUTO 2.03 K/mm3 (0.84-5.20); LYMPHOCYTES PERCENT AUTO 13 % (21-46); MONOCYTES PERCENT AUTO 7 % (4-13); Mean Corpuscular HGB 28.6 pg (26.0-34.0); Mean Corpuscular HGB Conc 31.9 g/dL (31.5-36.5); Mean Corpuscular Volume 90 fL (80-100); Mean Platelet Volume 10.2 fL (9.1-12.4); NEUTROPHILS ABSOLUTE AUTO 11.76 K/mm3 (1.96-9.15); NEUTROPHILS PERCENT AUTO 78 % (41-73); NRBC ABSOLUTE 0.04 K/mm3 (0.00-0.02); NRBC Auto 0.3 /100 WBC (0.0-0.2); Platelet Count 466 K/mm3 (150-400); RDW Coefficient Variation 15.7 % (11.7-14.2); RDW Standard Deviation 51.5 fL (35.1-46.3); Red Blood Cell Count 2.62 M/mm3 (4.30-5.90); White Blood Cell Count 15.16 K/mm3 (4.00-11.30)
[2018-10-05 04:40] LABS: Albumin, Blood 2.1 g/dL (3.4-5.0); Anion Gap 7 mmol/L (6-16); Blood Urea Nitrogen 35 mg/dL (8-24); CO2, Blood 27 mmol/L (21-32); CPK Creatine Kinase 27 U/L (39-308); Chloride, Blood 112 mmol/L (98-108); Creatinine, Blood 1.46 mg/dL (0.60-1.20); Glomerular Filtration Rate 55 (60-); Glucose, Blood 204 mg/dL (70-99); Magnesium, Blood 2.5 mg/dL (1.6-2.4); Phosphorus, Blood 2.4 mg/dL (2.5-4.9); Potassium, Blood 4.4 mmol/L (3.5-5.5); Sodium, Blood 146 mmol/L (136-145)
[2018-10-05 04:55] LABS: PO2 Arterial 69.9 mmHg (80-100); pH Blood Arterial 7.42 (7.35-7.45)
--- NOTE | 2018-10-05 06:32 | NUR ---
SHIFT SUMMARY NO ACUTE CHANGES DURING NOC. REMAINS INTUBATED- PS 8, PEEP 10, FIO2 50%. RR 16-30s. SEDATED WITH PROPOFOL BETWEEN 40-50MCG/KG/MIN DURING NOC- NOW @ 40MCG/KG/MIN. ALSO MEDICATED WITH ATIVAN 2MG IV X 3 DOSES DURING SHIFT FOR INCREASED RR AND BP. OPENS EYES TO STIMULI. OCCASIONALLY SQUEEZES HAND TO COMMAND. ANDREA, 3MM. BILATERAL SOFT WRIST RESTRAINTS REMAIN IN PLACE. MONITOR SHOWS SR-ST, RATE 90-100s. SBP 140-170s. TMAX 99.3F VIA LEVY TEMP PROBE. OG WITH PIVOT 1.5 AT GOAL RATE OF 30CC/HR WITH 30CC H20 FLUSH Q4H. RESIDUALS 0-20CC. LEVY PATENT AND DRAINING TO GRAVITY. NO CHANGE IN SKIN CONDITION. HEPARIN INFUSING @ 19UNITS/KG/HR PER PHARMACY- NEXT PTT AT 1200. LR INFUSING @ 75CC/HR PER ORDER. REMAINS IN CONTACT ISOLATION. WILL REPORT TO DAY SHIFT RN WHEN AVAILABLE.
--- NOTE | 2018-10-05 07:20 | NUR ---
START OF SHIFT NOTE: RECEIVED REPORT FROM AMRITA JUAN, ASSUMED CARE, PATIENT IS INTUBATED AND SEDATED, VENT SETTINGS ARE PRESSURE CONTROL 8/10/500/FiO2 50 %, PATIENT IS ON PROPOFOL AT 40 MCG, HEPARIN DRIP AT 19 UNITS, ZOSYN AND LEVAQUIN INFUSING, TF PIVOT 1.5 INFUSING AT GOAL RATE OF 30 CC/HR WITH 30 CC WATER FLUSH EVERY 4 HOURS, PICC IN ASHTYN FLUSHES WELL AND HAS GOOD BLOOD RETURN, LUNGS SOUNDS ARE COARSE THROUGHOUT WITH CRACKLES IN LEFT LOWER LOBE, SR/ST, BOWEL TONES PRESENT IN ALL FOUR QUADRANTS, LEVY CATHETER IN PLACE, SKING C/D/I OVERALL, CALL LIGHT IN REACH WILL CONTINUE TO MONITOR.
--- NOTE | 2018-10-05 11:34 | NUR ---
PATIENT'S NOON CHEM STICK RESULTED IN 358, DR. LOMBARDI AWARE, WILL CONTINUE WITH ORDERED SLIDING SCALE.
--- NOTE | 2018-10-05 17:58 | NUR ---
SHIFT SUMMARY NOTE: PATIENT CONTINUES TO BE MECHANICALLY VENTILATED WITH PRESSURE SUPPORT, SETTINGS 02/25/55/FiO2 50 %, PROPOFOL INFUSING AT 45 MCG, HEPARING DRIP AT 21 UNITS WITH BOLUS OF 4000 UNITS GIVEN, LUNG SOUNDS ARE COARSE THROUGHOUT WITH CRACKLES IN RLL, SINUS TACHY, BOWEL TONES PRESENT IN ALL FOUR QUADRANTS, TUBE FEED PIVOT 1.5 AT GOAL 30 CC/HR, WITH 30 CC WATER FLUSHES EVERY FOUR HOURS, LEVY CATHETER IN PLACE, DRAINING CLEAR YELLOW URINE, >2L DURING DAY SHIFT, PATIENT RECEIVED A TOTAL OF 4 MG ATIVAN FOR INCREASED BLOOD PRESSURE PER DR. LOMBARDI, ORAL CARE PROVIDED AND FREQUENTLY SUCTIONED, LARGE AMOUNTS OF THIN SECRETIONS NOTED AT TIMES, PATIENTS TOES ON LEFT FOOT ARE BLACK D/T FROSTBITE AND ARE TREATED WITH BACTROBAN CREAM, PATIENT WAS REPOSITIONED EVERY TWO HOURS, TOLERATED WELL, NO BM DURING THIS SHIFT, RIGHT UPPER ARM PICC FLUSHES WELL AND HAS GOOD BLOOD RETURN, OK TO USE PER DR. LOMBARDI DESPITE DVT IN THE RIGHT ARM, PATIENT OCCASSIONALLY OPENS EYES BUT WAS UNABLE TO FOLLOW COMMANDS THIS AM DURING SBT, CALL LIGHT IN REACH, WILL CONTINUE TO MONITOR AND GIVE REPORT TO ONCOMING PLANT PACKER.
--- NOTE | 2018-10-05 19:39 | NUR ---
[place] of Care: Patient intubated and sedated. Ventilator to pressure support 8//45%, O2-95-97%, appears calm/comfortable. Propofol gtt at 45mcg/kg/min, attempts to open eyes to verbal stimuli, facial grimace to painful stimuli. Heparin gtt at 21u/kg/hr, dosed at 80kg, next PTT at 2100hr. TF per OG tube is pivot 1.5cal at goal rate of 30ml/hr, with 30ml H2O flush q4hr, will assess residual q4hr. No s/s of pain or discomfort at this time. PICC line to ASHTYN patent and intact, infusing medications without difficulty. Paredes cath patent and intact, draining light yellow clear urine. Will continue to monitor for pain, comfort, safety.
[2018-10-06 04:59] LABS: PCO2 Arterial 41.6 mmHg (35-45); PO2 Arterial 66.3 mmHg (80-100); pH Blood Arterial 7.44 (7.35-7.45)
[2018-10-06 05:32] LABS: Hemoglobin 8.3 g/dL (13.5-17.5); Mean Corpuscular HGB 27.6 pg (26.0-34.0); Mean Corpuscular HGB Conc 30.7 g/dL (31.5-36.5); Mean Corpuscular Volume 90 fL (80-100); Mean Platelet Volume 10.3 fL (9.1-12.4); NRBC ABSOLUTE 0.03 K/mm3 (0.00-0.02); NRBC Auto 0.2 /100 WBC (0.0-0.2); Platelet Count 551 K/mm3 (150-400); RDW Coefficient Variation 15.9 % (11.7-14.2); RDW Standard Deviation 52.5 fL (35.1-46.3); Red Blood Cell Count 3.01 M/mm3 (4.30-5.90)
[2018-10-06 05:44] LABS: Anion Gap 8 mmol/L (6-16); Blood Urea Nitrogen 37 mg/dL (8-24); Bun/Creatinine Ratio 29.8 (12.0-20.0); CO2, Blood 27 mmol/L (21-32); Calcium, Blood 8.2 mg/dL (8.5-10.1); Chloride, Blood 111 mmol/L (98-108); Creatinine, Blood 1.24 mg/dL (0.60-1.20); Glomerular Filtration Rate >60 (60-); Glucose, Blood 300 mg/dL (70-99); Magnesium, Blood 2.5 mg/dL (1.6-2.4); Phosphorus, Blood 3.3 mg/dL (2.5-4.9); Potassium, Blood 4.6 mmol/L (3.5-5.5); Sodium, Blood 146 mmol/L (136-145)
--- NOTE | 2018-10-06 06:24 | NUR ---
Shift Summary: Patient continued on pressure support of 8, PEEP of 10, FiO2 titrated down to 35%, O2-92-96%. Respiratory rate increased to high 30's-40's after cares (repositioning, oral care), but decreased to low 20's when not stimulated. Propofol gtt titrated down from 45 to 35mcg/kg/min. Patient began to open eyes spontaneously and attempt to squeeze hands, also appear uncomfortable. X1 prn dose of fentanyl given at that time with good effect noted. Heparin gtt increased to 23u/kg/hr, at 2100hr, and again increased to 25u/kg/hr at 0630hr, with 4,000u boluses given with each dose change. Next PTT scheduled for 1300hr. Paredes cath remains patent ant intact, draining light yellow clear urine. PICC line remains patent and intact, infusing/ blood return without difficulty. Appears calm/comfortable at this time. Will continue to monitor until report to day shift RN.
--- NOTE | 2018-10-06 07:50 | NUR ---
START OF SHIFT NOTE: PATIENT CONTINUES ON MECHANICAL VENTILATION, SETTINGS ARE PRESSURE SUPPORT 8/10/500/FiO2 35 %, LUNG SOUNDS CLEAR, SLIGHT EXPIRATORY WHEEZE ON LEFT LOBES, SR/ST WITH HR IN 90'S TO 100'S, BOWEL TONES HYPERACTIVE THROUGHOUT, LEVY CATHETER IN PLACE, DRAINING LARGE AMOUNTS OF CLEAR YELLOW URINE, TOES ON LEFT FOOT SHOW MANY PETECCHIAE, AND BLACK TIPS, BACTROBAN CREAM IS APPLIED ORDERED, PROPOFOL AT 35 MCG, PATIENT IS ABLE TO OPEN EYES SPONTANEOUSLY, FOLLOWS COMMANDS TO A CERTAIN EXTENT, PARTIALLY ABLE TO SQUEEZE HANDS, HEAPRIN DRIP AT 25 UNITS, ANTIBIOTICS INFUSING, PICC ON ASHTYN FLUSHES WELL AND HAS GOOD BLOOD RETURN, DR. MCCORMICK IN TO SEE PATIENT, NEW ORDERS RECEIVED FOR BLOOD GLUCOSE RESULTS IN 300'S, CALL LIGHT IN REACH, WILL CONTINUE TO MONITOR.
--- NOTE | 2018-10-06 12:40 | NUR ---
DR. TRIVEDI IN TO SEE PATIENT, NEW ORDERS RECEIVED.
--- NOTE | 2018-10-06 15:44 | NUR ---
PICC LINE WAS PLACED ON MAT PER DR. TRIVEDI D/T DVT IN ASHTYN, ALL INFUSING MEDICATIONS WERE MOVED OVER AFTER PLACEMENT WAS VERIFIED IN SVC BY ECG DEVICE (SHERLOCK), PATIENT TOLERATED WELL, CALL LIGHT IN REACH, WILL CONTINUE TO MONITOR.
--- NOTE | 2018-10-06 16:10 | NUR ---
CALLED DR. TRIVEDI AND UPDATED HER ON PATIENT CONDITION, PICC LINE IN ASHTYN TO BE PULLED.
--- NOTE | 2018-10-06 16:38 | NUR ---
PICC LINE ON ASHTYN WAS REMOVED WITH CATHETER AND TIP INTACT, PATIENT TOLERATED WELL, PRESSURE HELD, GAUZE APPLIED AND OPSITE PLACED.
--- NOTE | 2018-10-06 17:50 | NUR ---
SHIFT SUMMARY NOTE: PATIENT STILL ON VENT SETTINGS ARE PRESSUR SUPPORT, 5/5, FiO2 40 %, PATIENT RECEIVED NEW PICC LINE IN MAT PER DR. TRIVEDI, ASHTYN PICC WAS REMOVED, HEPARIN AT 27, 4000 UNITS BOLUS, PPROPOFOL AT 10, PRECEDEX STARTED TO WEAN PATIENT OFF PROPOFOL, INFUSING AT 0.5, ZOSYN AND LEVAQUIN D/C'D, PATIENT OPENS EYES SPONTANEOUSLY, UNABLE TO FOLLOW COMMANDS, TOES ARE CONTINUED TO BE TREATED WITH BACTROBAN, DR. MCCORMICK ADDED LANTUS 8 UNITS TO PATIENTS MEDICATION D/T PATIENTS BLOOD SUGARS CONTINUOUSLY IN 300'S, U/O 0 CC'S, FOR DETAILS SEE SHIFT ASSESSMENT DOCUMENTATION AND NURSES NOTES, CALL LIGHT IN REACH, WILL CONTINUE TO MONITOR, AND GIVE REPORT TO ONCOMING ASSISTANT COMMISSIONER.
--- NOTE | 2018-10-06 19:00 | NUR ---
[place] of Care: Patient remains intubated, on pressure support of 5, PEEP-8, FiO2-40%, O2-92-96%. Patient now opening eyes and tracking staff, squeezes hands, moving all extremities, and nodding head appropriately. Appears uncomfortable and restless, BP elevated (systolic 190's), nodds head "yes" to pain. PRN fentanyl given, Propofol gtt increased from 10 to 20mcg/kg/min, precedex gtt remains at 0.5mcg/min. Patient now appears calm/comfortable, BP decreasing to wnl. Heparin gtt infusing at 27u/kg/hr, next ptt at 2100, dose/weight confirmed with day shift RN and EMAR. Paredes cath patent and intact, draining clear yellow urine. New PICC line placed today in MAT, patent and intact, infusing medications without difficulty. TF per OG at goal rate of 30ml/hr, 30ml H2O flush q4hr, will assess residual q4hr. Will continue to monitor for pain, safety, comfort.
--- NOTE | 2018-10-07 01:58 | NUR ---
HTN/Call to Dr. Madera: Pt's BP persisting in 170's- low 200's. Prn doses of Ativan ineffective to manage BP. Call to Dr. Madera, received order for Amlodipine 10mg PT x1, then to give Labetalol 5mg IV x1 if Amlodipine ineffective.
[2018-10-07 04:48] LABS: PCO2 Arterial 42.9 mmHg (35-45); PO2 Arterial 61.6 mmHg (80-100); pH Blood Arterial 7.46 (7.35-7.45)
[2018-10-07 04:48] LABS: BASOPHILS ABSOLUTE AUTO 0.03 K/mm3 (0.00-0.23); BASOPHILS PERCENT AUTO 0 % (0-2); EOSINOPHILS PERCENT AUTO 2 % (0-6); Hemoglobin 9.2 g/dL (13.5-17.5); IMMATURE GRAN ABSOLUTE AUTO 0.19 K/mm3 (0.00-0.10); IMMATURE GRAN PERCENT AUTO 1 % (0-1); LYMPHOCYTES PERCENT AUTO 22 % (21-46); MONOCYTES ABSOLUTE AUTO 1.03 K/mm3 (0.16-1.47); MONOCYTES PERCENT AUTO 8 % (4-13); Mean Corpuscular HGB 27.9 pg (26.0-34.0); Mean Corpuscular HGB Conc 30.7 g/dL (31.5-36.5); Mean Corpuscular Volume 91 fL (80-100); Mean Platelet Volume 9.8 fL (9.1-12.4); NEUTROPHILS ABSOLUTE AUTO 9.05 K/mm3 (1.96-9.15); NEUTROPHILS PERCENT AUTO 68 % (41-73); Platelet Count 603 K/mm3 (150-400); RDW Coefficient Variation 15.9 % (11.7-14.2); RDW Standard Deviation 52.9 fL (35.1-46.3)
[2018-10-07 05:13] LABS: Alanine Aminotransfer (ALT/SGP 390 U/L (12-78); Albumin/Globulin Ratio 0.4 (0.8-1.8); Alk Phos 113 U/L (50-136); Anion Gap 7 mmol/L (6-16); Aspartate Aminotrans (AST/SGOT 86 U/L (12-37); Bilirubin, Total 0.4 mg/dL (0.1-1.0); Blood Urea Nitrogen 31 mg/dL (8-24); CO2, Blood 29 mmol/L (21-32); Calcium, Blood 8.4 mg/dL (8.5-10.1); Chloride, Blood 112 mmol/L (98-108); Creatinine, Blood 1.07 mg/dL (0.60-1.20); Globulin, Blood 4.5 g/dL (2.2-4.0); Glomerular Filtration Rate >60 (60-); Glucose, Blood 199 mg/dL (70-99); Magnesium, Blood 2.3 mg/dL (1.6-2.4); Phosphorus, Blood 3.5 mg/dL (2.5-4.9); Potassium, Blood 4.1 mmol/L (3.5-5.5); Sodium, Blood 148 mmol/L (136-145); Total Protein, Blood 6.5 g/dL (6.4-8.2)
--- NOTE | 2018-10-07 06:14 | NUR ---
Shift Summary: Remained on pressure support of 5, PEEP-5, FiO2 35-40%, O2-92-96%. Remained calm throughout majority of shift. PRN fentanyl given x2 for s/s of pain/discomfort with good effect noted. BP elevated 170's- low 200's, see previous noted. PRN labetalol given, with slight decrease in BP noted, PRN fentanyl also given, BP decreased to 150's. Residuals up to 260ml this shift, and persisted high despite placing TF on hold. TF off from 6470-0967, residual then decreased to 40ml, and TF resumed. PICC line remains patent and intact. Paredes cath remains patent and intact, draining clear yellow urine. Heparin gtt increased to 29u/kg/hr with 4,000u bolus at 2100. No changes to heparin gtt with morning PTT, next schedule for 1100. Appears calm and comfortable at this time. Will continue to monitor until report to day shift RN.
--- NOTE | 2018-10-07 08:30 | NUR ---
CARE ASSUMED CARE AND REPORT ASSUMED FROM FELIPE CROWE. PT INTUBATED WITH ETT SECURED AND VENT PS 5, PEEP 5, FIO2 40%. LUNG SOUNDS COARSE. PROPOFOL GTT AT 25 MCG/KG/MIN AND PRECEDEX GTT INCREASED TO 0.7 MCG/KG/HR. BUE RESTRAINED TO PROTECT ETT AND LINES. OGT SECURED AND TF AT GOAL RATE 30ML/HR. RESIDUAL 160 ML. NSR, HR 70S. BP 160S/ 80S; WILL MONITOR. HEPARIN GTT DISCONTINUED AND PT STARTED ON LOVENOX. WILL CONTINUE TO MONITOR.
--- NOTE | 2018-10-07 13:20 | NUR ---
EXTUBATED 1223- PT EXTUBATED AT THIS TIME AND OGT REMOVED. EXTUBATED TO 5L NC. SPO2 95%. CALL LIGHT WITHIN REACH. ELEVATED BP. WILL CONTINUE TO MONITOR.
--- NOTE | 2018-10-07 16:04 | NUR ---
REASSESSMENT PT SLEEPING AND APPEARS COMFORTABLE. NSR, HR 80S. BP 160-170S, MEDICATED WITH LABETOLOL PER PRN ORDER. DENIES PAIN. PRECEDEX GTT INFUSING AT 0.2 MCG/KG/HR. TOLERATING PO WITHOUT ANY SIGNS OF CHOKING OR ASPIRATION RISK. LUNG SOUNDS CLEAR. NSR, HR 80S. CALL LIGHT WITHIN REACH. PT SLEEPING AT THIS TIME. RECEIVED BEDBATH, LINEN CHANGE AND HAD LARGE BOWEL MOVEMENT. WILL CONTINUE TO MONITOR.
--- NOTE | 2018-10-07 20:50 | NUR ---
ASSUMED CARE: PT ALERT AND ORIENTED TO SELF, PLACE AND YEAR. DOESN'T QUITE KNOW WHAT MONTH IT IS. PT IS VERY PLEASANT WITH CARE, FLAT AFFECT AND ASKS IF HE ANSWERS THE QUESTIONS CORRECTLY, IF I WILL GIVE HIM MEDICATION TO MAKE HE FEEL HIGH. LS CLEAR, DIMINISHED IN THE BASES WITH BIOX 89-93%, O2 INCREASED TO 6L N/C. HEART SOUNDS S1 AND S2 AUSCULTATED WITH MONITOR SHOWING HR 88, NSR. TRIPLE LUMEN PICC TO MAT WITH PRECEDEX RUNNING AT 3.7CC/HR= 0.2MCG/KG/HR. NS AT 10CC/HR. ABD R/S WITH BT X4. LEVY DRAINING CLEAR YELLOW URINE. CATH CARE DONE.
--- NOTE | 2018-10-08 03:05 | NUR ---
ASSUMING CARE OF PT AT THIS TIME. PT REPORT RECEIVED AT BEDSIDE WITH OFFGOING NURSE, ALEJANDRO CROWE. PT LAYING IN BED, WATCHING TELEVISION UPON ENTERING THE ROOM. VS STABLE - SEE VS FS. PT DOES NOT APPEAR TO BE IN DISTRESS AT THIS TIME. WILL REVIEW PLAN OF CARE.
[2018-10-08 03:31] LABS: BASOPHILS ABSOLUTE AUTO 0.04 K/mm3 (0.00-0.23); BASOPHILS PERCENT AUTO 0 % (0-2); EOSINOPHILS ABSOLUTE AUTO 0.27 K/mm3 (0.00-0.68); EOSINOPHILS PERCENT AUTO 2 % (0-6); Hematocrit 31.7 % (37.0-53.0); Hemoglobin 9.7 g/dL (13.5-17.5); IMMATURE GRAN ABSOLUTE AUTO 0.13 K/mm3 (0.00-0.10); IMMATURE GRAN PERCENT AUTO 1 % (0-1); LYMPHOCYTES ABSOLUTE AUTO 2.48 K/mm3 (0.84-5.20); LYMPHOCYTES PERCENT AUTO 17 % (21-46); MONOCYTES ABSOLUTE AUTO 1.22 K/mm3 (0.16-1.47); MONOCYTES PERCENT AUTO 8 % (4-13); Mean Corpuscular HGB 27.6 pg (26.0-34.0); Mean Corpuscular HGB Conc 30.6 g/dL (31.5-36.5); Mean Corpuscular Volume 90 fL (80-100); Mean Platelet Volume 9.5 fL (9.1-12.4); NEUTROPHILS PERCENT AUTO 72 % (41-73); Platelet Count 574 K/mm3 (150-400); RDW Coefficient Variation 15.4 % (11.7-14.2); RDW Standard Deviation 51.1 fL (35.1-46.3); Red Blood Cell Count 3.51 M/mm3 (4.30-5.90); White Blood Cell Count 14.64 K/mm3 (4.00-11.30)
[2018-10-08 03:46] LABS: Anion Gap 6 mmol/L (6-16); Blood Urea Nitrogen 31 mg/dL (8-24); Bun/Creatinine Ratio 28.2 (12.0-20.0); CO2, Blood 31 mmol/L (21-32); Calcium, Blood 8.4 mg/dL (8.5-10.1); Chloride, Blood 107 mmol/L (98-108); Glomerular Filtration Rate >60 (60-); Glucose, Blood 104 mg/dL (70-99); Potassium, Blood 3.8 mmol/L (3.5-5.5); Sodium, Blood 144 mmol/L (136-145)
--- NOTE | 2018-10-08 04:34 | NUR ---
SHIFT ASSESSMENT PT CALM, QUIET, COOPERATIVE, RESPONDS TO VERBAL STIMULI, SPONT OPENS EYES, A&O X4, USES CALL LIGHT APPROPRIATELY, FOLLOWS COMMANDS, OCC SLOW TO RESPOND. PER REPORT - OCC ANXIETY NOTED. PRECEDEX DRIP CURRENTLY AT 0.4 MCG/KG/HR - CONT TO TITRATE TO EFFECT. SENSATION INTACT BUE'S. PT DENIES N/T BUE'S. PT C/O N/T TO BILAT FT. PT BAUMAN. WEAKNESS NOTED. PT C/O SLIGHT WEAKNESS FROM BASELINE. PT C/O PAIN/DISCOMFORT BILAT FT T/O SHIFT. CONT TO ASSESS FOR PAIN/DISCOMFORT AND MEDICATED WITH PAIN MEDS PER PHYSICIAN'S ORDER / UTILIZE NONPHARM METHODS. LUNGS COARSE, DIMINISHED LOWER LOBES. SHALLOW BREAHTING. PT ON 5L NC. OXY SAT 90% AND GREATER WHILE ON 5L NC. CONT TO TITRATE OXYGEN TO MAINTAIN SPO2. RR 15 TO 40'S T/O SHIFT. DENIES SOB AT REST. DYSPNEA WITH EXERTION. PT C/O OCC PRODUCTIVE COUGH - SMALL AMOUNTS OF THIN CLEAR SECRETIONS. AFEBRILE. NSR. HR 70'S TO 80'S T/O SHIFT. SBP 140'S TO 180'S T/O SHIFT. [id number] PRN. STRONG PULSES. WARM, PINK SKIN. EDEMA NOTED. ACTIVE BT X4 QUADRANTS. ABD SOFT, NONTENDER, MILD DIST. NO N/V. PT TOLERATING PO FLUIDS AND ADA, SMALL SOFT SIZE DIET. F/C IN PLACE - YELLOW, CLEAR URINE NOTED. PICC MAT. NS TKO AT 10 ML/HR. WILL CONT TO MONITOR PT AND WILL PROVIDE BEDSIDE REPORT TO ONCOMING NURSE THIS AM.
--- NOTE | 2018-10-08 07:50 | NUR ---
ASSUMED CARE: REPORT RECEIVED FROM VANESSA Allen RN. ASSUMED CARE OF THIS PT AT APPROX 0700. ON ASSESSMENT, THE PT IS AWAKE, SITTING UP IN BED. PRECEDEX CONTINUES INFUSING, BUT PT DENIES ANXIETY/AGITATION AT THIS TIME. WILL ATTEMPT TO TITRATE PRECEDEX OFF TODAY. PT REMAINS ON 5L NC W/ O2 SATS > 92%. HTN, MEDS PER EMAR. PT STS PAIN TO BLE, R/T FROSTBITE ON ADMIT & CHRONIC DIABETIC WOUND, MEDS PER EMAR. WILL CONTINUE TO MONITOR & UPDATE NEEDED.
--- NOTE | 2018-10-08 08:10 | NUR ---
DR. RATLIFF: PROVIDER AT BEDSIDE TO SEE PT. POC DISCUSSED. PLANS TO TITRATE PRECEDEX DOWN/OFF TODAY, PROVIDER STS HE WILL ORDER PRN ANXIETY MEDS IF NEEDED ONCE PRECEDEX HAS BEEN STOPPED. HTN DISCUSSED, ORDERS FOR ADDITIONAL PO MEDS PLACED THIS AM. WILL CONTINUE TO MONITOR & UPDATE NEEDED.
--- NOTE | 2018-10-08 13:08 | NUR ---
DR. TRIVEDI: PROVIDER AT BEDSIDE TO SEE PT. SHE STS SHE IS SIGNING OFF THE PT's CASE & WOULD LIKE HIS PRECEDEX TO BE STOPPED. PRECEDEX HAS BEEN PLACED ON STANDBY. WILL CONTINUE TO MONITOR & UPDATE NEEDED.
--- NOTE | 2018-10-08 17:44 | NUR ---
SHIFT SUMMARY: NO ACUTE CHANGES THIS SHIFT. PT REMAINS A&O, PLEASANT & COOPERATIVE. PAIN TO BLE CONTINUES W/ MEDS PER EMAR, PAIN LEVEL IMPROVING PER PT. PT ABLE TO STAND & TX TO CHAIR THIS AFTERNOON & HAS REMAINED SITTING UP FOR DINNER. O2 HAS BEEN TITRATED DOWN TO 3L NC W/ O2 SATS > 92%. DESATS TO APPROX 87% NOTED W/ EXERTION FROM TX TO CHAIR, SATS RECOVERED QUICKLY WHEN PT REMINDED TO BREATHE IN THROUGH NOSE. MONITOR SHOWS SR W/ HR 90s. PT REMAINS HYPERTENSIVE W/ PRN MEDS PER EMAR. PRECEDEX REMAINS DISCONNECTED SINCE APPROX 1300 THIS AFTERNOON. PT HAS TOLERATED THIS WELL OTHER THAN INCREASED BP. PT HAS HAD HEALTHY APPETITE TODAY & IS TOLERATING PO INTAKE WELL W/ NO C/O NAUSEA. LEVY CATH WAS REMOVED THIS AFTERNOON & PT IS NOW VOIDING CLEAR, YELLOW URINE W/O DIFFICULTY USING URINAL. TOES TO L FOOT CONTINUE TO HAVE DARK COLORATION & SOME OPEN AREAS. OINTMENT APPLIED TO CHRONIC WOUND ON R FOOT SOLE ORDERED. CALL TO DR. RATLIFF TO REQUEST STATUS CHANGE PT IS NO LONGER REQUIRING PRECEDEX DRIP, PT IS NOW PCU STATUS. WILL CONTINUE TO MONITOR & REPORT OFF TO ONCOMING RN.
--- NOTE | 2018-10-08 19:15 | NUR ---
ASSUMING CARE OF PT AT THIS TIME. PT REPORT RECEIVED AT BEDSIDE WITH OFFGOING NURSE, FERMIN CROWE. PT LAYING IN BED, WATCHING TELEVISION UPON ENTERING THE ROOM. VS STABLE - SEE VS FS. PT DOES NOT APPEAR TO BE IN DISTRESS AT THIS TIME. WILL REVIEW PLAN OF CARE.
--- NOTE | 2018-10-08 19:30 | NUR ---
PT REPORT PROVIDED TO DIANA CROWE VIA TELEPHONE. WAITING FOR PT TRANSFER FROM ICU TO PCU AT THIS TIME.
--- NOTE | 2018-10-08 20:16 | NUR ---
PT ARRIVED TO PCU TX FROM ICU . PT A/O, ORIENTED TO ROOM/CALL LIGHT. PT BP ELEVATED, SATS >90% ON 3LNC, DENEIS SOB. PT REQ PAIN MEDS, PRN ORDERS REV. PLAN TO MEDICATE AND TX PER ORDERS.
[2018-10-09 04:38] LABS: Hematocrit 32.9 % (37.0-53.0); Hemoglobin 10.3 g/dL (13.5-17.5); Mean Corpuscular HGB 27.9 pg (26.0-34.0); Mean Corpuscular HGB Conc 31.3 g/dL (31.5-36.5); Mean Corpuscular Volume 89 fL (80-100); Mean Platelet Volume 9.6 fL (9.1-12.4); Platelet Count 613 K/mm3 (150-400); RDW Coefficient Variation 15.3 % (11.7-14.2); RDW Standard Deviation 50.2 fL (35.1-46.3); Red Blood Cell Count 3.69 M/mm3 (4.30-5.90); White Blood Cell Count 16.24 K/mm3 (4.00-11.30)
[2018-10-09 04:53] LABS: Anion Gap 8 mmol/L (6-16); Blood Urea Nitrogen 31 mg/dL (8-24); Bun/Creatinine Ratio 32.6 (12.0-20.0); CO2, Blood 29 mmol/L (21-32); Calcium, Blood 8.5 mg/dL (8.5-10.1); Chloride, Blood 104 mmol/L (98-108); Creatinine, Blood 0.95 mg/dL (0.60-1.20); Glomerular Filtration Rate >60 (60-); Glucose, Blood 212 mg/dL (70-99); Potassium, Blood 3.6 mmol/L (3.5-5.5); Sodium, Blood 141 mmol/L (136-145)
--- NOTE | 2018-10-09 06:03 | NUR ---
PT ICU TX THIS SHIFT. PT HAD NO ACUTE CHANGES SONCE ARRIVING TO FLOOR. BP ELEVATED, IV LABETALOL GIVEN X2; PT DENIED CP/PRESSURE. SATS >90% ON 3LNC, LUNGS DIM/COARSE, BREATHING TX CONT PER RT. OINTMENT APPLIED TO TOES, PAIN MGD W/NORCO W/REP RELIEF. PT GEMA REG PO, NO C/O N/V. PT USING URINAL TO VOID. PT USING CALL LIGHT FOR ASSISTANCE, IS COOPERATIVE W/CARE. WILL CONT TO MONITOR UNTIL REP GIVEN TO ONCOMING RN.
--- NOTE | 2018-10-09 18:21 | NUR ---
EVENING NOTE PT ALERT AND ORIENTED. SITTING UP DANGLING AT BEDSIDE. BP ELEVATED LEFT UE. RIGHT FA TIGHT AND 2+ SWELLING. RIGHT RADIAL PULSE 2+ CAP REFILL BRISK. PT DENIES PAIN TO FA OR NUMBNESS AND TINGLING. RIGHT PICC LINE DRESSING SITE CD&I. NO SWELLING OR DRAINAGE NOTED. BP CHECKED ON LEFT FA BELOW THE PICCLINE. PT FEET DARK REDISH IN COLOR WHEN DEPENDENT WHILE DANGLING. PT REFUSED POST OP SHOES. OFFERED TO HELP HIM UP TO A CHAIR. HE REFUSED. EATING WELL. DRINKING WELL. CBG ELEVATED. COVERED WITH SLIDING SCALE EACH MEAL. PT UPSET THAT HIS DIDN'T COME TO SEE HIM TODAY. SHE WAS SUPPOSED TO BE BRINGING HIM A TOOTH BRUSH. HE REFUSED OUR OFFER FOR TOOTHBRUSH AND TOOTHPASTE. PT REFUSED ADLS BATHING TODAY. CONTINUE POT.
[2018-10-10 04:44] LABS: BASOPHILS ABSOLUTE AUTO 0.05 K/mm3 (0.00-0.23); BASOPHILS PERCENT AUTO 0 % (0-2); EOSINOPHILS ABSOLUTE AUTO 0.49 K/mm3 (0.00-0.68); EOSINOPHILS PERCENT AUTO 4 % (0-6); Hematocrit 31.8 % (37.0-53.0); Hemoglobin 9.8 g/dL (13.5-17.5); IMMATURE GRAN PERCENT AUTO 1 % (0-1); LYMPHOCYTES ABSOLUTE AUTO 2.26 K/mm3 (0.84-5.20); LYMPHOCYTES PERCENT AUTO 19 % (21-46); MONOCYTES ABSOLUTE AUTO 0.91 K/mm3 (0.16-1.47); MONOCYTES PERCENT AUTO 8 % (4-13); Mean Corpuscular HGB Conc 30.8 g/dL (31.5-36.5); Mean Corpuscular Volume 91 fL (80-100); Mean Platelet Volume 9.8 fL (9.1-12.4); NEUTROPHILS ABSOLUTE AUTO 7.84 K/mm3 (1.96-9.15); NEUTROPHILS PERCENT AUTO 67 % (41-73); Platelet Count 573 K/mm3 (150-400); RDW Coefficient Variation 15.3 % (11.7-14.2); RDW Standard Deviation 50.7 fL (35.1-46.3); White Blood Cell Count 11.65 K/mm3 (4.00-11.30)
[2018-10-10 05:02] LABS: Alanine Aminotransfer (ALT/SGP 152 U/L (12-78); Albumin, Blood 2.4 g/dL (3.4-5.0); Albumin/Globulin Ratio 0.6 (0.8-1.8); Alk Phos 93 U/L (50-136); Anion Gap 7 mmol/L (6-16); Aspartate Aminotrans (AST/SGOT 31 U/L (12-37); Bilirubin, Total 0.4 mg/dL (0.1-1.0); Blood Urea Nitrogen 28 mg/dL (8-24); Bun/Creatinine Ratio 31.5 (12.0-20.0); CO2, Blood 29 mmol/L (21-32); Calcium, Blood 8.7 mg/dL (8.5-10.1); Chloride, Blood 105 mmol/L (98-108); Creatinine, Blood 0.89 mg/dL (0.60-1.20); Globulin, Blood 4.3 g/dL (2.2-4.0); Glomerular Filtration Rate >60 (60-); Glucose, Blood 153 mg/dL (70-99); Magnesium, Blood 1.8 mg/dL (1.6-2.4); Potassium, Blood 3.5 mmol/L (3.5-5.5); Sodium, Blood 141 mmol/L (136-145); Total Protein, Blood 6.7 g/dL (6.4-8.2)
--- NOTE | 2018-10-10 06:23 | NUR ---
SHIFT SUMMARY- PT HAS REMAINED AOX4 THROUGHOUT SHIFT. PLEASANT AND COOPERATIVE WITH CARE. PT REMAINS ON BEDREST AND CONTINUES TO SHIFT SELF IN BED BUT OCCASIONALLY REQUIRES MOTIVATION TO TURN HIMSELF. PT WITH ONE EPISODE OF HYPERTENSION LAST NIGHT THAT RELIEVED WITH ORDERED MEDICATION, ALL OTHER VSS. PT MEDICATED ONCE FOR PAIN TO FEET THAT DECREASED WITH ORDERED MEDICATION. RUE REMAINS SWOLLEN IN FOREARM, THOUGH PULSES AND CAPILLARY REFILL REMAIN WNL. BACTROBAN APPLIED TO BILATERAL TOES, PT REPORTS NUMBNESS TO BLE'S BUT PAIN TO TOES. NO OTHER CHANGES NOTED FROM INITIAL ASSESSMENT. WILL CONTINUE TO MONITOR AND REPORT TO ONCOMING SHIFT RN. BED IN LOW POSITION, CALL LIGHT IN REACH.
--- NOTE | 2018-10-10 17:47 | NUR ---
SHIFT SUMMARY PT RESTING IN BED THROUGHOUT THE DAY. VSS. ALERT AND ORIENTED X3. C/O 7-8/10 BILATERAL FOOT PAIN, MEDICATED WITH PRN PAIN MEDS. C/O NUMBNESS AND TINGLING TO HANDS AND FEET. LEFT FOOT BLACKENED SKIN NOTED, OINTMENT APPLIED. LEFT PICC LINE FLUSHING WELL. SLEPT THE MAJORITY OF THE DAY. WILL CONTINUE TO MONITOR.
--- NOTE | 2018-10-10 23:45 | NUR ---
TRANSFER TO MEDICAL FLOOR REPORT CALLED TO MED FLOOR RN. PT CURRENTLY AOX4 AND RESTING IN BED COMFORTABLY. REPORTS THAT PAIN HAS DECREASED WITH ORDERED MEDICATIONS. WILL MEDICATE FOR ELEVATED BP PER ORDERS AND TRANSFER TO MEDICAL FLOOR. BED IN LOW POSITION, CALL LIGHT IN REACH.
--- NOTE | 2018-10-11 00:04 | NUR ---
PROVIDER CONTACTED- PT WITH ELEVATED BP OF 178/110. DR ELLINGTON CONTACTED AND ORDERS RECEIVED FOR PRN LABETALOL 10 MG Q6 PRN FOR BP OF 175/110 OR GREATER. WILL INPUT AND ADMINISTER.
--- NOTE | 2018-10-11 01:15 | NUR ---
PT ARRIVED TO THE UNIT VIA HOSP BED ABOUT 0100, A/O, TRANSFERED SELF TO THE NEW BED INDEPENDENTLY, IMMIDIATELY STARTED ASKING FOR MORE PAIN MEDICATION, PT STATES UNDERSTANDING THAT HIS PAIN MEDICTION IS AVAILABLE EVERY 4 HRS. PICC LINE IN L UA, PT SETTLED INTO HIS ROOM QUICKLY AND W/OUT DIFFICULTY. WILL CONTINUE TO MONITOR.
--- NOTE | 2018-10-11 05:03 | NUR ---
VSS, AFEBRILE, A/O, AWAKE ALL NOC WATCHING TELEVISION, PICC LINE REMAINS PATENT AND FUNCITIONING. PT USES URINAL, MEDICATED FOR PAIN PER ORDER, NO OTHER COMPLAINTS NOTED. WILL REPORT TO ON-COMING SHIFT.
[2018-10-11 05:13] LABS: BASOPHILS ABSOLUTE AUTO 0.04 K/mm3 (0.00-0.23); BASOPHILS PERCENT AUTO 0 % (0-2); EOSINOPHILS PERCENT AUTO 5 % (0-6); Hematocrit 33.1 % (37.0-53.0); Hemoglobin 10.2 g/dL (13.5-17.5); IMMATURE GRAN ABSOLUTE AUTO 0.07 K/mm3 (0.00-0.10); IMMATURE GRAN PERCENT AUTO 1 % (0-1); LYMPHOCYTES ABSOLUTE AUTO 2.04 K/mm3 (0.84-5.20); LYMPHOCYTES PERCENT AUTO 21 % (21-46); MONOCYTES ABSOLUTE AUTO 0.87 K/mm3 (0.16-1.47); MONOCYTES PERCENT AUTO 9 % (4-13); Mean Corpuscular HGB 27.5 pg (26.0-34.0); Mean Corpuscular HGB Conc 30.8 g/dL (31.5-36.5); Mean Corpuscular Volume 89 fL (80-100); NEUTROPHILS ABSOLUTE AUTO 6.01 K/mm3 (1.96-9.15); NEUTROPHILS PERCENT AUTO 63 % (41-73); Platelet Count 512 K/mm3 (150-400); RDW Coefficient Variation 14.9 % (11.7-14.2); RDW Standard Deviation 48.5 fL (35.1-46.3); Red Blood Cell Count 3.71 M/mm3 (4.30-5.90); White Blood Cell Count 9.53 K/mm3 (4.00-11.30)
[2018-10-11 05:38] LABS: Alanine Aminotransfer (ALT/SGP 124 U/L (12-78); Albumin, Blood 2.5 g/dL (3.4-5.0); Albumin/Globulin Ratio 0.6 (0.8-1.8); Alk Phos 100 U/L (50-136); Anion Gap 4 mmol/L (6-16); Aspartate Aminotrans (AST/SGOT 25 U/L (12-37); Bilirubin, Total 0.3 mg/dL (0.1-1.0); Blood Urea Nitrogen 24 mg/dL (8-24); Bun/Creatinine Ratio 30.5 (12.0-20.0); CO2, Blood 32 mmol/L (21-32); Calcium, Blood 8.5 mg/dL (8.5-10.1); Chloride, Blood 102 mmol/L (98-108); Creatinine, Blood 0.79 mg/dL (0.60-1.20); Globulin, Blood 4.3 g/dL (2.2-4.0); Glomerular Filtration Rate >60 (60-); Glucose, Blood 178 mg/dL (70-99); Potassium, Blood 3.4 mmol/L (3.5-5.5); Sodium, Blood 138 mmol/L (136-145); Total Protein, Blood 6.8 g/dL (6.4-8.2)
--- NOTE | 2018-10-11 19:10 | NUR ---
SHIFT SUMMARY PT A&OX4. IRRITABLE AT TIMES. COOPERATIVE WITH CARE. PT RESTING IN BED DURING SHIFT. 1 PERSON SBA. PT REPORTS PAIN IN BLE/FEET, MEDICATED X3 WITH NORCO WITH POSITIVE RESULTS. PT SOB WITH EXERTION, >90% ON 2L O2 VIA NC. PT DENIES NAUSEA. APPLIED BACTOBAN ON TOES ON BILATERAL FEET. POTASSIUM 3.4, NOTIFIED DR AMES, NEW ORDERS ENTERED, PT RECEIVED POTASSIUM CHLORIDE. ELEVATED BP, MEDICATED WITH SCHEDULED MEDICATIONS AND PRN. CHILDREN AT BEDSIDE THIS AFTERNOON. OTHER VSS. NO OTHER ACUTE CHANGES NOTED DURING SHIFT. REPORT GIVEN TO ONCOMING RN.
[2018-10-12 04:43] LABS: BASOPHILS ABSOLUTE AUTO 0.05 K/mm3 (0.00-0.23); BASOPHILS PERCENT AUTO 1 % (0-2); EOSINOPHILS ABSOLUTE AUTO 0.54 K/mm3 (0.00-0.68); EOSINOPHILS PERCENT AUTO 5 % (0-6); Hematocrit 34.4 % (37.0-53.0); Hemoglobin 10.8 g/dL (13.5-17.5); IMMATURE GRAN ABSOLUTE AUTO 0.07 K/mm3 (0.00-0.10); IMMATURE GRAN PERCENT AUTO 1 % (0-1); LYMPHOCYTES ABSOLUTE AUTO 1.85 K/mm3 (0.84-5.20); LYMPHOCYTES PERCENT AUTO 17 % (21-46); MONOCYTES ABSOLUTE AUTO 1.04 K/mm3 (0.16-1.47); MONOCYTES PERCENT AUTO 10 % (4-13); Mean Corpuscular HGB 27.4 pg (26.0-34.0); Mean Corpuscular HGB Conc 31.4 g/dL (31.5-36.5); Mean Corpuscular Volume 87 fL (80-100); Mean Platelet Volume 9.5 fL (9.1-12.4); NEUTROPHILS ABSOLUTE AUTO 7.34 K/mm3 (1.96-9.15); NEUTROPHILS PERCENT AUTO 67 % (41-73); Platelet Count 510 K/mm3 (150-400); RDW Coefficient Variation 14.8 % (11.7-14.2); RDW Standard Deviation 47.6 fL (35.1-46.3); Red Blood Cell Count 3.94 M/mm3 (4.30-5.90); White Blood Cell Count 10.89 K/mm3 (4.00-11.30)
[2018-10-12 05:00] LABS: Alanine Aminotransfer (ALT/SGP 108 U/L (12-78); Albumin, Blood 2.7 g/dL (3.4-5.0); Albumin/Globulin Ratio 0.6 (0.8-1.8); Alk Phos 105 U/L (50-136); Anion Gap 6 mmol/L (6-16); Aspartate Aminotrans (AST/SGOT 26 U/L (12-37); Bilirubin, Total 0.4 mg/dL (0.1-1.0); Blood Urea Nitrogen 26 mg/dL (8-24); Bun/Creatinine Ratio 27.1 (12.0-20.0); CO2, Blood 30 mmol/L (21-32); Chloride, Blood 104 mmol/L (98-108); Creatinine, Blood 0.96 mg/dL (0.60-1.20); Globulin, Blood 4.6 g/dL (2.2-4.0); Glomerular Filtration Rate >60 (60-); Glucose, Blood 164 mg/dL (70-99); Magnesium, Blood 1.8 mg/dL (1.6-2.4); Potassium, Blood 3.8 mmol/L (3.5-5.5); Sodium, Blood 140 mmol/L (136-145); Total Protein, Blood 7.3 g/dL (6.4-8.2)
--- NOTE | 2018-10-12 05:14 | NUR ---
VSS, AFEBRILE, A/O, PT APPEARS TO HAVE REGAINED HIS EMOTIONAL STABILTY AFTER BEING UPSET/DISAPPOINTED THAT HE COULD NOT HAVE THE MEAL THAT HE ORDERED LAST EVENING. LAST NIGHT, PT MENTIONED THAT HE WANTS TO LEAVE THE HOSPITAL. THIS MORNING, HE HAS NOT MADE ANY REMARKS ABOUT LEAVING AMA. WILL REPORT TO ON-COMING SHIFT.
--- NOTE | 2018-10-12 18:09 | NUR ---
PT. LYING IN BED AFTER EATING DINNER. APPEARS TO BE VERY DEPRESSED. SALVE AND DRESSING PLACED ON LEFT TOES. PT. UP IN WC FOR A TIME TODAY WITH ASSIST OF PT. PT. PUT HIMSELF BACK TO BED. DID NOT CALL FOR ASSIST. PT. IS EATING WELL BUT WANTS OUT OF HERE.
[2018-10-13 05:20] LABS: BASOPHILS ABSOLUTE AUTO 0.05 K/mm3 (0.00-0.23); BASOPHILS PERCENT AUTO 1 % (0-2); EOSINOPHILS ABSOLUTE AUTO 0.48 K/mm3 (0.00-0.68); EOSINOPHILS PERCENT AUTO 6 % (0-6); Hematocrit 31.2 % (37.0-53.0); Hemoglobin 9.8 g/dL (13.5-17.5); IMMATURE GRAN ABSOLUTE AUTO 0.04 K/mm3 (0.00-0.10); IMMATURE GRAN PERCENT AUTO 1 % (0-1); LYMPHOCYTES ABSOLUTE AUTO 2.06 K/mm3 (0.84-5.20); LYMPHOCYTES PERCENT AUTO 24 % (21-46); MONOCYTES ABSOLUTE AUTO 0.91 K/mm3 (0.16-1.47); MONOCYTES PERCENT AUTO 10 % (4-13); Mean Corpuscular HGB Conc 31.4 g/dL (31.5-36.5); Mean Corpuscular Volume 89 fL (80-100); Mean Platelet Volume 9.7 fL (9.1-12.4); NEUTROPHILS ABSOLUTE AUTO 5.22 K/mm3 (1.96-9.15); NEUTROPHILS PERCENT AUTO 60 % (41-73); Platelet Count 421 K/mm3 (150-400); RDW Coefficient Variation 15.1 % (11.7-14.2); RDW Standard Deviation 49.5 fL (35.1-46.3); White Blood Cell Count 8.76 K/mm3 (4.00-11.30)
--- NOTE | 2018-10-13 05:24 | NUR ---
VSS, AFEBRILE, A/O, RESTLESS ALL NOC, DEMONSTRATING A COMPLETE CHANGE IN DEMEANOR AND ATTITUDE. PT HAS BEEN DEPRESSED AND WITHDRAWN UNTIL THIS EVENING. SUDDENLY, HE IS BRIGHT, RESTLESS, EAGER AND CHATTY W/STAFF. PT HAS MADE FREQUENT REQUESTS FOR PAIN MEDICATION AND HAS BEEN MEDICATED PER ORDER. PICC LINE DRAWS WELL. WILL REPORT TO ON-COMING SHIFT.
[2018-10-13 05:37] LABS: Alanine Aminotransfer (ALT/SGP 84 U/L (12-78); Albumin, Blood 2.6 g/dL (3.4-5.0); Albumin/Globulin Ratio 0.6 (0.8-1.8); Alk Phos 101 U/L (50-136); Anion Gap 6 mmol/L (6-16); Aspartate Aminotrans (AST/SGOT 21 U/L (12-37); Bilirubin, Total 0.3 mg/dL (0.1-1.0); Blood Urea Nitrogen 31 mg/dL (8-24); Bun/Creatinine Ratio 34.1 (12.0-20.0); CO2, Blood 29 mmol/L (21-32); Calcium, Blood 8.6 mg/dL (8.5-10.1); Chloride, Blood 102 mmol/L (98-108); Creatinine, Blood 0.91 mg/dL (0.60-1.20); Globulin, Blood 4.2 g/dL (2.2-4.0); Glomerular Filtration Rate >60 (60-); Glucose, Blood 175 mg/dL (70-99); Potassium, Blood 3.8 mmol/L (3.5-5.5); Sodium, Blood 137 mmol/L (136-145); Total Protein, Blood 6.8 g/dL (6.4-8.2)
--- NOTE | 2018-10-13 19:28 | NUR ---
NO CHANGE IN PT STATUS EXCEPT FOR DR. AMES MAKING PT FULL WEIGHT BEARING WITH ASSIST AFTER VIEWING XRAYS OF BILATERAL FEET.
--- NOTE | 2018-10-14 04:22 | NUR ---
10/14/18 0415 RN MAKING ROUNDS AND PT SLEEPING WELL. VITALS TAKEN EARLIER WERE STABLE. NO COMPLIANTS VOICED DURING VITALS.ISOLATION MAINTAINED PER POLICY.
--- NOTE | 2018-10-14 06:18 | NUR ---
10/14/18 0600 Awakened for AM lab and states he slept fair. Medicated for pain. STATES HE MAY WANT MORE BREAKFAST HE IS VERY HUNGRY THIS AM.
[2018-10-14 06:28] LABS: BASOPHILS ABSOLUTE AUTO 0.06 K/mm3 (0.00-0.23); BASOPHILS PERCENT AUTO 1 % (0-2); EOSINOPHILS ABSOLUTE AUTO 0.48 K/mm3 (0.00-0.68); EOSINOPHILS PERCENT AUTO 5 % (0-6); Hematocrit 31.9 % (37.0-53.0); IMMATURE GRAN ABSOLUTE AUTO 0.05 K/mm3 (0.00-0.10); IMMATURE GRAN PERCENT AUTO 1 % (0-1); LYMPHOCYTES ABSOLUTE AUTO 1.83 K/mm3 (0.84-5.20); LYMPHOCYTES PERCENT AUTO 20 % (21-46); MONOCYTES ABSOLUTE AUTO 0.98 K/mm3 (0.16-1.47); MONOCYTES PERCENT AUTO 11 % (4-13); Mean Corpuscular HGB 28.2 pg (26.0-34.0); Mean Corpuscular HGB Conc 31.3 g/dL (31.5-36.5); Mean Corpuscular Volume 90 fL (80-100); Mean Platelet Volume 10.2 fL (9.1-12.4); NEUTROPHILS PERCENT AUTO 63 % (41-73); Platelet Count 532 K/mm3 (150-400); RDW Coefficient Variation 15.2 % (11.7-14.2); Red Blood Cell Count 3.55 M/mm3 (4.30-5.90)
[2018-10-14 06:45] LABS: Alanine Aminotransfer (ALT/SGP 71 U/L (12-78); Albumin, Blood 2.6 g/dL (3.4-5.0); Albumin/Globulin Ratio 0.6 (0.8-1.8); Alk Phos 97 U/L (50-136); Anion Gap 5 mmol/L (6-16); Aspartate Aminotrans (AST/SGOT 18 U/L (12-37); Bilirubin, Total 0.3 mg/dL (0.1-1.0); Blood Urea Nitrogen 35 mg/dL (8-24); Bun/Creatinine Ratio 37.5 (12.0-20.0); CO2, Blood 28 mmol/L (21-32); Calcium, Blood 8.8 mg/dL (8.5-10.1); Chloride, Blood 103 mmol/L (98-108); Creatinine, Blood 0.93 mg/dL (0.60-1.20); Globulin, Blood 4.4 g/dL (2.2-4.0); Glomerular Filtration Rate >60 (60-); Glucose, Blood 138 mg/dL (70-99); Magnesium, Blood 1.7 mg/dL (1.6-2.4); Sodium, Blood 136 mmol/L (136-145)
--- NOTE | 2018-10-14 14:55 | NUR ---
PATIENT MEDICATED FOR PAIN IN BILATERAL FEET. STATED THAT THE PAIN DID NOT GET BETTER AFTER RESTING. AWAITING DISCHARGE PLAN FOR TOMORROW
--- NOTE | 2018-10-14 17:44 | NUR ---
SHIFT SUMMARY NO ACUTE CONCERNS WITH THE PATIENT. HE IS ABLE TO BEAR WEIGHT ON HIS LEGS AND FEET. PATIENT IS PHYSICALLY CAPABLE OF HIS MOVEMENT. HOME O2 EVAL DONE TODAY. POTENTIAL FOR DISCHARGE TOMORROW PER DR. AMES. AWAITING TO SEE IF THERE ARE ANY CHANGES IN HIS CONDITION AND HIS CURRENT HOME REGIMEN.
--- NOTE | 2018-10-15 05:50 | NUR ---
Rn summary: Patient is alert and oriented. Pt does walk a little in roon, using w/c mostly if up in room. Pt has been medicated x2 with [place] 10/325 for caren feet pain with moderate relief. Patient has no respirtory distress and breath sounds are clear this evening. PICC line to MAT patent and flushed. Pt condition and vital signs stable. Call light in reach. Possible DC today if appropriate arrangments can be made.
[2018-10-15] MEDS ORDERED: AMLO10 PO (11:56)
[2018-10-15] MEDS ORDERED: ASCO500 PO (11:57)
[2018-10-15] MEDS ORDERED: Norco 10-325 T1 EACH PO (12:02)
[2018-10-15] MEDS ORDERED: Humalog100 UNIT/1 SC (12:04)
[2018-10-15] MEDS ORDERED: LISI20 PO (12:05)
[2018-10-15] MEDS ORDERED: XARELTO20 MG PO (12:05)
--- NOTE | 2018-10-15 15:07 | NUR ---
discharge summary taco vargas from ICU took the patients picc line out. patient information and instructions given to the patient prior to discharge. he has been wheeled out by the volleyball referee.
== END 2018-10-15 12:47 | disposition home or self-care (01) | DRG 870 ==
LOC: ER 10:37 → ICUE 15:17 → MEDS 15:17 → ERHOLD 15:17 → MEDS 09-19 09:56 → ICUE 09-25 15:25 → MEDS 09-27 20:03 → ICUW 10-01 22:20 → PCU 10-08 19:57 → MEDS 10-11 00:44 → ENPENDDIS 10-15 12:00 → MEDS 10-15 12:47
PROVIDERS: Internal Medicine; Internal Medicine Critical Care Medicine; Internal Medicine Pulmonary Disease; Nurse Practitioner Acute Care; Pharmacist; Physician Assistant; ADMIT Family Medicine
PROC: 5A09457 Assistance with Respiratory Ventilation, 24-96 Consecutive Hours, Continuous Positive Airway Pressure (ICD-10-PCS; 2018-09-18)
PROC: 0BH17EZ Insertion of Endotracheal Airway into Trachea, Via Natural or Artificial Opening (ICD-10-PCS; principal; 2018-10-02)
PROC: 5A1955Z Respiratory Ventilation, Greater than 96 Consecutive Hours (ICD-10-PCS; 2018-10-02)
PROC: 0B9F7ZX Drainage of Right Lower Lung Lobe, Via Natural or Artificial Opening, Diagnostic (ICD-10-PCS; 2018-10-02)
PROC: 30233N1 Transfusion of Nonautologous Red Blood Cells into Peripheral Vein, Percutaneous Approach (ICD-10-PCS; 2018-10-05)
DX: A41.9 Sepsis, unspecified organism (principal); J96.01 Acute respiratory failure with hypoxia; J80 Acute respiratory distress syndrome; T33.822A Superficial frostbite of left foot, initial encounter; K12.2 Cellulitis and abscess of mouth; N17.9 Acute kidney failure, unspecified; I42.9 Cardiomyopathy, unspecified; I82.621 Acute embolism and thrombosis of deep veins of right upper extremity; I82.890 Acute embolism and thrombosis of other specified veins; R57.9 Shock, unspecified; M86.60 Other chronic osteomyelitis, unspecified site; E11.621 Type 2 diabetes mellitus with foot ulcer; L97.519 Non-pressure chronic ulcer of other part of right foot with unspecified severity; Z79.4 Long term (current) use of insulin; Z59.0 Homelessness; Z91.19 Patient's noncompliance with other medical treatment and regimen; F17.210 Nicotine dependence, cigarettes, uncomplicated; I10 Essential (primary) hypertension; E11.42 Type 2 diabetes mellitus with diabetic polyneuropathy; J09.X2 Influenza due to identified novel influenza A virus with other respiratory manifestations; Z86.14 Personal history of Methicillin resistant Staphylococcus aureus infection; R79.89 Other specified abnormal findings of blood chemistry; D64.9 Anemia, unspecified; E11.69 Type 2 diabetes mellitus with other specified complication
CPT/HCPCS: 31500; 31720; 36415; 36430; 36569; 36600; 51702; 71045; 71046; 71250; 73630; 73720; 76700; 80048; 80053; 80069; 80202; 82010; 82248; 82330; 82550; 82553; 82803; 82947; 83605; 83690; 83735; 83880; 84100; 84145; 84443; 84484; 85014; 85018; 85025; 85027; 85610; 85730; 86140; 86702; 86850; 86900; 86901; 86923; 87015; 87040; 87070; 87205; 87486; 87581; 87633; 87798; 88108; 88184; 88185; 88312; 93005; 93010; 93306; 93308; 93321; 93922; 93970; 94002; 94003; 94640; 94660; 94760; 94761; 96365; 96375; 96376; 97116; 97161; 97162; 99285-25; A9577; C1751; C9113; J0295; J0330; J0360; J0696; J1170; J1644; J1650; J1885; J1940; J1956; J2060; J2250; J2270; J2543; J2997; J3010; J3370; J7030; J7040; J7050; J7060; J7120; P9016; P9046

== ENCOUNTER 2019-06-08 12:44 | Day surgery (SDC) | payer OTHER ==
[~2019-06-08 12:44] MED LIST changes: +AMLO10 PO; +ASCO500 PO; +Humalog100 UNIT/1 SC; +LISI20 PO; +Norco 10-325 T1 EACH PO; +XARELTO20 MG PO
== END 2019-06-08 23:05 | disposition home or self-care (01) ==
LOC: WOUND 12:44
DX: E11.621 Type 2 diabetes mellitus with foot ulcer (principal); L97.512 Non-pressure chronic ulcer of other part of right foot with fat layer exposed; E11.52 Type 2 diabetes mellitus with diabetic peripheral angiopathy with gangrene; I96 Gangrene, not elsewhere classified; E11.42 Type 2 diabetes mellitus with diabetic polyneuropathy; I10 Essential (primary) hypertension; F17.210 Nicotine dependence, cigarettes, uncomplicated; D64.9 Anemia, unspecified; Z79.4 Long term (current) use of insulin; Z79.899 Other long term (current) drug therapy; Z86.718 Personal history of other venous thrombosis and embolism
CPT/HCPCS: G0463

== ENCOUNTER 2019-06-22 08:31 | Day surgery (SDC) | payer OTHER | END 2019-06-22 23:01 | disposition home or self-care (01) | LOC: WOUND 08:31 | DX: E11.621 Type 2 diabetes mellitus with foot ulcer (principal); L97.512 Non-pressure chronic ulcer of other part of right foot with fat layer exposed; E11.52 Type 2 diabetes mellitus with diabetic peripheral angiopathy with gangrene; I96 Gangrene, not elsewhere classified; E11.42 Type 2 diabetes mellitus with diabetic polyneuropathy; I10 Essential (primary) hypertension; Z79.4 Long term (current) use of insulin; Z70.1 Counseling related to patient's sexual behavior and orientation; Z79.899 Other long term (current) drug therapy; Z86.718 Personal history of other venous thrombosis and embolism | CPT/HCPCS: 87081 ==

== ENCOUNTER 2020-05-20 07:53 | Inpatient (IN) | payer OTHER ==
[~2020-05-20] VITALS: Ht 175.3 cm; Wt 79.7 kg
[~2020-05-20 07:53] MED LIST changes: +Amoxicillin500 MG PO; +BASAGLAR K100 UNIT/2; +HUMALOG KW100 UNIT/1 SC; -Humalog100 UNIT/1 SC
[2020-05-20 10:08] LABS: BASOPHILS ABSOLUTE AUTO 0.05 K/mm3 (0.00-0.23); BASOPHILS PERCENT AUTO 0 % (0-2); EOSINOPHILS ABSOLUTE AUTO 0.07 K/mm3 (0.00-0.68); EOSINOPHILS PERCENT AUTO 0 % (0-6); Hematocrit 33.9 % (37.0-53.0); Hemoglobin 10.9 g/dL (13.5-17.5); IMMATURE GRAN ABSOLUTE AUTO 0.14 K/mm3 (0.00-0.10); IMMATURE GRAN PERCENT AUTO 1 % (0-1); LYMPHOCYTES ABSOLUTE AUTO 1.41 K/mm3 (0.84-5.20); LYMPHOCYTES PERCENT AUTO 7 % (21-46); MONOCYTES ABSOLUTE AUTO 1.69 K/mm3 (0.16-1.47); MONOCYTES PERCENT AUTO 8 % (4-13); Mean Corpuscular HGB 28.7 pg (26.0-34.0); Mean Corpuscular HGB Conc 32.2 g/dL (31.5-36.5); Mean Corpuscular Volume 89 fL (80-100); Mean Platelet Volume 9.8 fL (9.1-12.4); NEUTROPHILS ABSOLUTE AUTO 16.95 K/mm3 (1.96-9.15); NEUTROPHILS PERCENT AUTO 84 % (41-73); Platelet Count 344 K/mm3 (150-400); RDW Standard Deviation 42.5 fL (35.1-46.3); White Blood Cell Count 20.31 K/mm3 (4.00-11.30)
[2020-05-20 10:32] LABS: Alanine Aminotransfer (ALT/SGP 18 U/L (12-78); Albumin, Blood 2.2 g/dL (3.4-5.0); Albumin/Globulin Ratio 0.4 (0.8-1.8); Alk Phos 91 U/L (50-136); Anion Gap 4 mmol/L (6-16); Aspartate Aminotrans (AST/SGOT 11 U/L (12-37); Bilirubin, Total 0.5 mg/dL (0.1-1.0); Blood Urea Nitrogen 21 mg/dL (8-24); Bun/Creatinine Ratio 15.9 (12.0-20.0); CO2, Blood 28 mmol/L (21-32); Calcium, Blood 8.5 mg/dL (8.5-10.1); Chloride, Blood 102 mmol/L (98-108); Creatinine, Blood 1.32 mg/dL (0.60-1.20); Globulin, Blood 4.9 g/dL (2.2-4.0); Glomerular Filtration Rate >60 (60-); Glucose, Blood 94 mg/dL (70-99); Potassium, Blood 4.6 mmol/L (3.5-5.5); Sodium, Blood 134 mmol/L (136-145); Total Protein, Blood 7.1 g/dL (6.4-8.2)
--- NOTE | 2020-05-20 15:29 | NUR ---
PATIENT ARRIVES TO ROOM ABOUT 1405 IN W/C. AMBULATORY IN ROOM STEADY GAIT. WOUND TO PLANTAR ASPECT RT FOOT WHICH PATIENT STS HAS HAD FOR ABOUT 1 YEAR. USUALLY LEAVES OPEN TO AIR. STS WAS WALKING AROUND IN [place] ON A HOT NIGHT AND WHEN HE RETURNED HOME HAD A HOLE IN HIS FOOT. NO HOLE IN SHOES. DOES NOT KNOW WHAT CAUSED WOUND. TAKES INSULIN TO "HOW HE FEELS". PODIATRY CONSULT CALLED. PATIENT DENIES ANY PAIN. AWARE WE NEED URINE AND GIVEN CLEAN URINAL. LUNCH TRAY ORDERED. WCTM AND UPDATE NEEDED.
[2020-05-20] MEDS ORDERED: PROM25 PO (15:40)
[2020-05-20] MEDS ORDERED: METF500C PO (15:40)
--- NOTE | 2020-05-20 16:35 | NUR ---
RT FOOT CLEANED WITH INTEGRITY. PIC TAKEN WITH PATIENT CONSENT. FOAM WITH BORDER APPLIED.
--- NOTE | 2020-05-20 18:03 | NUR ---
PER OK TO CANCEL NPO AFTER MIDNITE. STS PATIENT WILL NEED 6-8 WEEKS ANTIBIOTICS AND WILL F/U WITH HIM. NO SURGERY SCHEDULED.
--- NOTE | 2020-05-21 00:25 | NUR ---
05/20/20 2300 RN REMINDED PT THAT WE NEED A URINE SAMPLE PER MD ORDER. STATES HE DOESN'T NEED TO "PEE" NOW. RN HAD REQUESTED A SAMPLE AT 1900 DURING ROUNDS AND HE SAID HE DOESN'T NEED TO URINATE THEN EITHER.
--- NOTE | 2020-05-21 04:57 | NUR ---
05/21/20 0440 PT AWAKENED BY LAB FOR AM LABWORK. VITALS TAKEN. BP ELEVATED. DENIES ANY PAIN OR S/S. STATES HE HAS VOIDED TWICE AND STILL HAS NOT LET STAFF OBTAIN URINE SAMPLE. TAKING DIET SODA. IV FLUIDS RUNNING AT 75ML/HOUR. DRESSING INTACT AND DRY TO RT FOOT. CONTACT ISOLATION MAINTAINED.
[2020-05-21 05:06] LABS: BASOPHILS ABSOLUTE AUTO 0.06 K/mm3 (0.00-0.23); BASOPHILS PERCENT AUTO 0 % (0-2); EOSINOPHILS ABSOLUTE AUTO 0.17 K/mm3 (0.00-0.68); EOSINOPHILS PERCENT AUTO 1 % (0-6); Hematocrit 31.2 % (37.0-53.0); IMMATURE GRAN ABSOLUTE AUTO 0.06 K/mm3 (0.00-0.10); IMMATURE GRAN PERCENT AUTO 0 % (0-1); LYMPHOCYTES ABSOLUTE AUTO 1.58 K/mm3 (0.84-5.20); LYMPHOCYTES PERCENT AUTO 10 % (21-46); MONOCYTES ABSOLUTE AUTO 1.66 K/mm3 (0.16-1.47); MONOCYTES PERCENT AUTO 11 % (4-13); Mean Corpuscular HGB 28.6 pg (26.0-34.0); Mean Corpuscular HGB Conc 32.1 g/dL (31.5-36.5); Mean Corpuscular Volume 89 fL (80-100); Mean Platelet Volume 10.1 fL (9.1-12.4); NEUTROPHILS ABSOLUTE AUTO 12.32 K/mm3 (1.96-9.15); NEUTROPHILS PERCENT AUTO 78 % (41-73); Platelet Count 334 K/mm3 (150-400); RDW Coefficient Variation 13.2 % (11.7-14.2); RDW Standard Deviation 43.2 fL (35.1-46.3); White Blood Cell Count 15.85 K/mm3 (4.00-11.30)
[2020-05-21 05:19] LABS: International Normalized Ratio 1.01; Prothrombin Time Results 10.8 Sec (9.7-11.5)
[2020-05-21 05:29] LABS: Albumin, Blood 1.9 g/dL (3.4-5.0); Albumin/Globulin Ratio 0.4 (0.8-1.8); Bilirubin, Total 0.4 mg/dL (0.1-1.0); Bun/Creatinine Ratio 19.2 (12.0-20.0); Calcium, Blood 8.6 mg/dL (8.5-10.1); Creatinine, Blood 1.46 mg/dL (0.60-1.20); Globulin, Blood 4.7 g/dL (2.2-4.0); Magnesium, Blood 2.1 mg/dL (1.6-2.4); Potassium, Blood 4.3 mmol/L (3.5-5.5); Total Protein, Blood 6.6 g/dL (6.4-8.2)
--- NOTE | 2020-05-21 19:19 | NUR ---
SHIFT SUMMARY ANETTE DENIED PAIN THIS SHIFT. CLEANED WOUND AND CHANGED DRESSING. GIRLFRIEND VISITED. INDEP IN ROOM. TOOK MEDS PRESCRIBED. DECLINED TO OFFER A URINE SPECIMEN.
--- NOTE | 2020-05-22 05:03 | NUR ---
SHIFT SUMMARY ASSUMED CARE OF PT AT 1900. PT IS A/OX4 BUT TALKS TO HIMSELF AT TIMES.LUNG SOUNDS CLEAR, HEART SOUNDS REGULAR. PT IS INDEPENDENT IN ROOM. PT FOOT HAD DRESSING CHANGES IN AM, DRESSING C/D/I. NO ACUTE EVENTS DURING THE NIGHT. PT SLEPT MOST OF THE NIGHT. CALL LIGHT IN REACH, BED IN LOWEST POSTION.
[2020-05-22 08:12] LABS: Hematocrit 31.4 % (37.0-53.0); Hemoglobin 10.1 g/dL (13.5-17.5); Mean Corpuscular HGB 29.1 pg (26.0-34.0); Mean Corpuscular HGB Conc 32.2 g/dL (31.5-36.5); Mean Corpuscular Volume 91 fL (80-100); Mean Platelet Volume 9.8 fL (9.1-12.4); Platelet Count 359 K/mm3 (150-400); RDW Coefficient Variation 13.2 % (11.7-14.2); RDW Standard Deviation 43.8 fL (35.1-46.3); Red Blood Cell Count 3.47 M/mm3 (4.30-5.90); White Blood Cell Count 13.87 K/mm3 (4.00-11.30)
[2020-05-22 08:32] LABS: Albumin, Blood 1.9 g/dL (3.4-5.0); Anion Gap 6 mmol/L (6-16); Blood Urea Nitrogen 30 mg/dL (8-24); Bun/Creatinine Ratio 18.8 (12.0-20.0); CHOL/HDL RATIO 4.2; CO2, Blood 24 mmol/L (21-32); Calcium, Blood 8.6 mg/dL (8.5-10.1); Chloride, Blood 107 mmol/L (98-108); Cholesterol 176 mg/dL (50-200); Glomerular Filtration Rate 49 (60-); Glucose, Blood 103 mg/dL (70-99); HDL Cholesterol 42 mg/dL (>39); LDL/HDL RATIO 2.7; Low Density Lipoprotein Chol 114 mg/dL (0-110); Potassium, Blood 4.3 mmol/L (3.5-5.5); Sodium, Blood 137 mmol/L (136-145); Triglycerides 98 mg/dL (30-160); Very Low Density Lipoprot Chol 19 mg/dL (6-32)
[2020-05-22 08:46] LABS: Vancomycin, Trough 24.8 ug/mL (5.0-10.0)
--- NOTE | 2020-05-22 19:15 | NUR ---
SHIFT SUMMARY ANETTE DENIED PAIN THIS SHIFT. WOUND CLEANED AND REDRESSED. HE IS ON THE LIST TO GET A PICC TOMORROW. HAD A FALSE CRITICAL LOW OF 31, PT ASYMPTOMATIC, AND REPEAT TEST IMMEDIATLY FOLLOWING SHOWED CBG OF 167. INDEP IN ROOM, NO COMPLAINTS
--- NOTE | 2020-05-23 04:43 | NUR ---
SAP ADMINISTRATOR SUMMARY A/OX4. INDEPENDENT IN ROOM. PT EASILY IRRITATED WHEN DISCUSSING CURRENT HEALTH SITUATION AND THE THE THOUGHT OF RECEIVING A PICC LINE. UA REMAINS UNCOLLECTED PATIENT REFUSES. DRESSING C/D/I TO R. PLANTAR. VSS. NO ACUTE CHANGES AT THIS TIME. BED IN LOWEST POSITION WITH CALL LIGHT IN REACH. WILL CONTINUE TO MONITOR AND REPORT TO ONCOMING RN.
[2020-05-23 05:28] LABS: Hematocrit 30.7 % (37.0-53.0); Hemoglobin 9.9 g/dL (13.5-17.5); Mean Corpuscular HGB 28.7 pg (26.0-34.0); Mean Corpuscular HGB Conc 32.2 g/dL (31.5-36.5); Mean Corpuscular Volume 89 fL (80-100); Mean Platelet Volume 9.4 fL (9.1-12.4); Platelet Count 383 K/mm3 (150-400); RDW Coefficient Variation 13.1 % (11.7-14.2); RDW Standard Deviation 42.5 fL (35.1-46.3); Red Blood Cell Count 3.45 M/mm3 (4.30-5.90); White Blood Cell Count 10.79 K/mm3 (4.00-11.30)
[2020-05-23 05:47] LABS: Albumin, Blood 1.8 g/dL (3.4-5.0); Anion Gap 5 mmol/L (6-16); Blood Urea Nitrogen 33 mg/dL (8-24); Bun/Creatinine Ratio 21.3 (12.0-20.0); CO2, Blood 27 mmol/L (21-32); Calcium, Blood 8.9 mg/dL (8.5-10.1); Chloride, Blood 111 mmol/L (98-108); Creatinine, Blood 1.55 mg/dL (0.60-1.20); Glomerular Filtration Rate 51 (60-); Glucose, Blood 91 mg/dL (70-99); Phosphorus, Blood 4.5 mg/dL (2.5-4.9); Potassium, Blood 4.3 mmol/L (3.5-5.5); Sodium, Blood 143 mmol/L (136-145)
[2020-05-23 15:14] LABS: Vancomycin, Trough 21.3 ug/mL (5.0-10.0)
--- NOTE | 2020-05-23 17:09 | NUR ---
NO ACUTE CHANGES TO PT. HE IS ALERT AND ORIENTED AND ABLE TO EXPRESS ANY NEEDS. PT IS INDEPENDENT IN THE ROOM.
--- NOTE | 2020-05-24 04:07 | NUR ---
BUSHEL GIRL SUMMARY A/OX4. APPEARED TO SLEEP T/O SHIFT. MEPILEX DRESSING TO R. PLANTAR SURFACE. NO ACUTE CHANGES AT THIS TIME. BED IN LOWEST POSITION WITH CALL LIGHT IN REACH. WILL CONTINUE TO MONITOR AND REPORT TO ONCOMING RN.
[2020-05-24] MEDS ORDERED: SEMGLEE PE100 UNIT/1 SC (10:12)
[2020-05-24] MEDS ORDERED: ATOR20 PO (10:16)
[2020-05-24] MEDS ORDERED: Acidophilus1 EAC1 PO (10:18)
[2020-05-24] MEDS ORDERED: LINE600 PO (10:18)
--- NOTE | 2020-05-24 11:48 | NUR ---
PT HAS BEEN DC'D HOME, WAS COOPERATIVE YET IRRITABLE WITH CARE. PT WAS ENCOURAGED TO FOLLOW UP WITH WOUND CARE AND PHARMACY FOR NEW MEDUICATIONS. PT WAS ALERT AND ORIENTED X4 AND AMBULATES WITHOUT ASSISTANCE.
== END 2020-05-24 11:20 | disposition home or self-care (01) | DRG 638 ==
LOC: ER 07:53 → MEDS 12:09 → SURS 12:09 → MEDS 14:06 → ENPENDDIS 05-24 10:46 → MEDS 05-24 11:20
PROVIDERS: Nurse Practitioner Acute Care; Pharmacist; Physician Assistant; ADMIT Internal Medicine
DX: E11.621 Type 2 diabetes mellitus with foot ulcer (principal); M86.171 Other acute osteomyelitis, right ankle and foot; L97.519 Non-pressure chronic ulcer of other part of right foot with unspecified severity; E11.42 Type 2 diabetes mellitus with diabetic polyneuropathy; I10 Essential (primary) hypertension; E11.51 Type 2 diabetes mellitus with diabetic peripheral angiopathy without gangrene; F17.210 Nicotine dependence, cigarettes, uncomplicated; F12.929 Cannabis use, unspecified with intoxication, unspecified; Z86.14 Personal history of Methicillin resistant Staphylococcus aureus infection
CPT/HCPCS: 36415; 73620; 80053; 80061; 80069; 80202; 82947; 83036; 83605; 83735; 85025; 85027; 85610; 85651; 86140; 87040; 96365; 96366; 96367; 99284-25; A9270; A9270-GY; J0696; J2543; J3370; J7030; J7050

== ENCOUNTER 2021-01-30 12:11 | Emergency (ER) | payer OTHER ==
[~2021-01-30] VITALS: Ht 172.7 cm; Wt 81.7 kg
[~2021-01-30 12:11] MED LIST changes: +ATOR20 PO; +Acidophilus1 EAC1 PO; +LINE600 PO; +METF500C PO; +SEMGLEE PE100 UNIT/1 SC
[2021-01-30] MEDS ORDERED: ONDA4ODT MM (15:39)
== END 2021-01-30 15:48 | disposition home or self-care (01) ==
LOC: ER 12:11
DX: R51.9 Headache, unspecified (principal); E11.9 Type 2 diabetes mellitus without complications; F17.200 Nicotine dependence, unspecified, uncomplicated; Z79.4 Long term (current) use of insulin; Z79.899 Other long term (current) drug therapy
CPT/HCPCS: 96374; 96375; 99283-25; J0780; J1200; J1885; J7030

== ENCOUNTER 2021-02-12 15:37 | Emergency (ER) | payer OTHER ==
[~2021-02-12] VITALS: Ht 172.7 cm; Wt 81.7 kg
== END 2021-02-12 17:47 | disposition left against medical advice (07) ==
LOC: ER 15:37
DX: H53.9 Unspecified visual disturbance (principal); R51.9 Headache, unspecified; Z53.21 Procedure and treatment not carried out due to patient leaving prior to being seen by health care provider
CPT/HCPCS: 99282

== ENCOUNTER 2021-06-17 11:24 | Emergency (ER) | payer OTHER ==
[~2021-06-17] VITALS: Ht 172.7 cm; Wt 79.4 kg
== END 2021-06-17 15:17 | disposition home or self-care (01) ==
LOC: ER 11:24
DX: H53.8 Other visual disturbances (principal); E11.9 Type 2 diabetes mellitus without complications; F17.200 Nicotine dependence, unspecified, uncomplicated
CPT/HCPCS: 99283

== ENCOUNTER 2021-11-20 21:34 | Inpatient (IN) | payer OTHER ==
[~2021-11-20] VITALS: Ht 172.7 cm; Wt 75.3 kg
[~2021-11-20 21:34] MED LIST changes: +IBUP600 PO; +Ventolin/Prove6.7 GM INH; +Zithromax250 MG PO
[2021-11-20 22:26] LABS: BASOPHILS ABSOLUTE AUTO 0.05 K/mm3 (0.00-0.23); BASOPHILS PERCENT AUTO 0 % (0-2); EOSINOPHILS PERCENT AUTO 2 % (0-6); Hematocrit 40.2 % (37.0-53.0); IMMATURE GRAN ABSOLUTE AUTO 0.04 K/mm3 (0.00-0.10); IMMATURE GRAN PERCENT AUTO 0 % (0-1); LYMPHOCYTES ABSOLUTE AUTO 1.44 K/mm3 (0.84-5.20); LYMPHOCYTES PERCENT AUTO 11 % (21-46); MONOCYTES ABSOLUTE AUTO 0.84 K/mm3 (0.16-1.47); MONOCYTES PERCENT AUTO 7 % (4-13); Mean Corpuscular HGB 28.7 pg (26.0-34.0); Mean Corpuscular HGB Conc 32.3 g/dL (31.5-36.5); Mean Corpuscular Volume 89 fL (80-100); Mean Platelet Volume 9.8 fL (9.1-12.4); NEUTROPHILS PERCENT AUTO 80 % (41-73); Platelet Count 386 K/mm3 (150-400); RDW Coefficient Variation 13.8 % (11.7-14.2); RDW Standard Deviation 45.1 fL (35.1-46.3); Red Blood Cell Count 4.53 M/mm3 (4.30-5.90); White Blood Cell Count 12.77 K/mm3 (4.00-11.30)
[2021-11-20 22:43] LABS: Albumin, Blood 2.4 g/dL (3.4-5.0); Albumin/Globulin Ratio 0.5 (0.8-1.8); Bilirubin, Total 0.5 mg/dL (0.1-1.0); Bun/Creatinine Ratio 12.1 (12.0-20.0); Calcium, Blood 8.8 mg/dL (8.5-10.1); Creatinine, Blood 3.22 mg/dL (0.60-1.20); Globulin, Blood 4.4 g/dL (2.2-4.0); Potassium, Blood 4.1 mmol/L (3.5-5.5); Total Protein, Blood 6.8 g/dL (6.4-8.2)
[2021-11-21 01:28] LABS: Source, Urine Clean Catch
[2021-11-21 01:29] LABS: Influenza A, PCR NEGATIVE (NEGATIVE); Influenza B, PCR NEGATIVE (NEGATIVE); Resp Syncytial Virus, PCR NEGATIVE (NEGATIVE); SARS-Cov-2 (COVID-19) PCR, MMC NEGATIVE (NEGATIVE)
[2021-11-21 01:34] LABS: Appearance, Urine Clear (Clear); Bilirubin, Urine Neg (Neg); Blood, Urine 4+ (Neg); Color, Urine Yellow (P-Yellow); Glucose Qualitative, Urine 4+ (Neg); Ketones, Urine 2+ (Neg); Leukocyte Esterase, Urine Neg (Neg); Nitrite, Urine Neg (Neg); Protein, Urine 4+ (Neg); Specific Gravity, Urine 1.015 (1.003-1.022); Urobilinogen, Urine NORM (Normal); pH, Urine 6.5 (5.0-8.0)
[2021-11-21 01:41] LABS: Amorphous Light (0-Heavy); Bacteria Not Seen /hpf; Squamous Epithelial Cells Rare /hpf (Few); White Blood Cells, Urine Rare /hpf (0-5)
[2021-11-21 01:42] LABS: U Amphetamine Screen DETECTED; U Barbituate Screen Not Detected; U Benzodiazapine Screen Not Detected; U Buprenorphine Screen Not Detected; U Cannabinoids Screen DETECTED; U Cocaine Screen Not Detected; U Methadone Screen Not Detected; U Methamphetamine Screen DETECTED; U Opiates Screen Not Detected; U Oxycodone Screen Not Detected; U Phencyclidine Screen Not Detected; U Propoxyphene Screen Not Detected
[2021-11-21 06:22] LABS: BASOPHILS ABSOLUTE AUTO 0.07 K/mm3 (0.00-0.23); BASOPHILS PERCENT AUTO 1 % (0-2); EOSINOPHILS ABSOLUTE AUTO 0.17 K/mm3 (0.00-0.68); EOSINOPHILS PERCENT AUTO 1 % (0-6); Hematocrit 35.1 % (37.0-53.0); Hemoglobin 11.1 g/dL (13.5-17.5); IMMATURE GRAN ABSOLUTE AUTO 0.05 K/mm3 (0.00-0.10); IMMATURE GRAN PERCENT AUTO 0 % (0-1); LYMPHOCYTES PERCENT AUTO 13 % (21-46); MONOCYTES ABSOLUTE AUTO 0.79 K/mm3 (0.16-1.47); MONOCYTES PERCENT AUTO 6 % (4-13); Mean Corpuscular HGB 28.5 pg (26.0-34.0); Mean Corpuscular HGB Conc 31.6 g/dL (31.5-36.5); Mean Corpuscular Volume 90 fL (80-100); NEUTROPHILS ABSOLUTE AUTO 9.79 K/mm3 (1.96-9.15); NEUTROPHILS PERCENT AUTO 79 % (41-73); Platelet Count 355 K/mm3 (150-400); RDW Standard Deviation 45.8 fL (35.1-46.3); White Blood Cell Count 12.47 K/mm3 (4.00-11.30)
--- NOTE | 2021-11-21 06:22 | NUR ---
ADMIT NOTE HANDOFF RECEIVED FROM PRIVACY MANAGER MAT. PT ARRIVED TO FLOOR VIA [place]. PT ORIENTED TO UNIT. CALL BUTTON WITHIN REACH. IV FLUIDS STARTED ORDERED. PT DENIES N/V/D. PT ASKING REPEATEDLY FOR FOOD. I DID INFORM HIM THAT HE IS CURRENTLY NPO.
[2021-11-21 06:53] LABS: Albumin/Globulin Ratio 0.5 (0.8-1.8); Bilirubin, Total 0.5 mg/dL (0.1-1.0); Calcium, Blood 8.3 mg/dL (8.5-10.1); Creatinine, Blood 3.08 mg/dL (0.60-1.20); Globulin, Blood 3.9 g/dL (2.2-4.0); Potassium, Blood 3.8 mmol/L (3.5-5.5); Total Protein, Blood 5.9 g/dL (6.4-8.2)
--- NOTE | 2021-11-21 18:42 | NUR ---
SHIFT SUMMARY PT A&OX4. NO COMPLAINTS THROUGHOUT SHIFT. NO N/V/DIARRHEA. PT WAS ABLE TO EAT. IS INDEPENDENT IN THE ROOM. BLOOD SUGARS ARE WELL CONTROLLED. IV FLUIDS RUNNING ORDERED. IS ON 2ND BAG OF NS 1L. VSS.
--- NOTE | 2021-11-22 04:07 | NUR ---
SUPERVISOR PUBLIC MESSAGE SERVICE SUMMARY PT A/OX4. 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 PT REPORTS HE IS FEELING MUCH BETTER AND HAS INCREASED APPETITE. NO NAUSEA/VOMITTING. PT ON CONTINUOUS NS FLUIDS. PT IS INDEPENDENT IN ROOM; ABLE TO MAKE NEEDS KNOWN. PT BROUGHT ALBUTEROL INHALER FROM HOME. PT REPORTS HE WAS FINISHING A 4 DOSE TREATMENT FOR PNEUMONIA BUT DID NOT TAKE THE LAST DOSE SCHEDULED 11/21/21.
[2021-11-22 05:48] LABS: Calcium, Blood 8.2 mg/dL (8.5-10.1); Creatinine, Blood 2.76 mg/dL (0.60-1.20); Potassium, Blood 4.4 mmol/L (3.5-5.5)
--- NOTE | 2021-11-22 12:12 | NUR ---
PT DISCHARGED AT 1155 Pt having high SBP, ordered metoprolol & clonidine PO today. AM BP 184/128. clonidine given at 11am, BP 159/107. MD ordered discharge home. New meds faxed to [facility]. Discharge teaching provided, pt verbalized understanding. Refused escort out. Pt left unit at 1155.
[2021-11-22] MEDS ORDERED: NORVASC10 MG PO (12:14)
[2021-11-22] MEDS ORDERED: GLIP2.5ER PO (12:14)
[2021-11-22] MEDS ORDERED: CATAPRES0.1 MG PO (12:15)
[2021-11-22] MEDS ORDERED: Lopressor 50 mg50 MG PO (12:15)
== END 2021-11-22 11:55 | disposition home or self-care (01) | DRG 684 ==
LOC: ER 21:34 → MEDS 21:35
PROVIDERS: Internal Medicine; Student in an Organized Health Care Education/Training Program; ADMIT Internal Medicine
DX: N17.9 Acute kidney failure, unspecified (principal); I12.9 Hypertensive chronic kidney disease with stage 1 through stage 4 chronic kidney disease, or unspecified chronic kidney disease; F17.200 Nicotine dependence, unspecified, uncomplicated; Z20.822 Contact with and (suspected) exposure to COVID-19; E11.22 Type 2 diabetes mellitus with diabetic chronic kidney disease; R11.2 Nausea with vomiting, unspecified; N18.30 Chronic kidney disease, stage 3 unspecified; F15.10 Other stimulant abuse, uncomplicated; F12.10 Cannabis abuse, uncomplicated; Z71.51 Drug abuse counseling and surveillance of drug abuser; Z22.322 Carrier or suspected carrier of Methicillin resistant Staphylococcus aureus; Z98.890 Other specified postprocedural states
CPT/HCPCS: 0241U; 36415; 76770; 80048; 80053; 81001; 82947; 83036; 83690; 85025; 94760; 96361; 96374; 99284-25; A9270; G0378; J1644; J2765; J7030; Q3014

== ENCOUNTER 2022-03-07 00:09 | Inpatient (IN) | payer OTHER ==
[~2022-03-07] VITALS: Ht 172.7 cm; Wt 78.7 kg
[~2022-03-07 00:09] MED LIST changes: +CATAPRES0.1 MG PO; +GLIP2.5ER PO; +Lopressor 50 mg50 MG PO; +NORVASC10 MG PO
[2022-03-07 02:07] LABS: Base Excess Venous -4.6 mmol/L; Bicarbonate Venous 20.4 mmol/L (24.0-30.0); PCO2 Venous 47.1 mmHg (38-42); pH Blood Venous 7.28 (7.34-7.37)
[2022-03-07 02:08] LABS: BASOPHILS ABSOLUTE AUTO 0.06 K/mm3 (0.00-0.23); BASOPHILS PERCENT AUTO 1 % (0-2); EOSINOPHILS ABSOLUTE AUTO 0.33 K/mm3 (0.00-0.68); EOSINOPHILS PERCENT AUTO 3 % (0-6); Hematocrit 30.3 % (37.0-53.0); Hemoglobin 9.5 g/dL (13.5-17.5); IMMATURE GRAN ABSOLUTE AUTO 0.04 K/mm3 (0.00-0.10); IMMATURE GRAN PERCENT AUTO 0 % (0-1); LYMPHOCYTES ABSOLUTE AUTO 1.44 K/mm3 (0.84-5.20); LYMPHOCYTES PERCENT AUTO 12 % (21-46); MONOCYTES ABSOLUTE AUTO 0.54 K/mm3 (0.16-1.47); MONOCYTES PERCENT AUTO 5 % (4-13); Mean Corpuscular HGB 28.4 pg (26.0-34.0); Mean Corpuscular HGB Conc 31.4 g/dL (31.5-36.5); Mean Corpuscular Volume 90 fL (80-100); Mean Platelet Volume 10.2 fL (9.1-12.4); NEUTROPHILS ABSOLUTE AUTO 9.57 K/mm3 (1.96-9.15); NEUTROPHILS PERCENT AUTO 80 % (41-73); Platelet Count 304 K/mm3 (150-400); RDW Coefficient Variation 15.6 % (11.7-14.2); RDW Standard Deviation 48.6 fL (35.1-46.3); Red Blood Cell Count 3.35 M/mm3 (4.30-5.90); White Blood Cell Count 11.98 K/mm3 (4.00-11.30)
[2022-03-07 02:29] LABS: Albumin, Blood 1.8 g/dL (3.4-5.0); Albumin/Globulin Ratio 0.4 (0.8-1.8); Bilirubin, Total 0.2 mg/dL (0.1-1.0); Bun/Creatinine Ratio 14.6 (12.0-20.0); Calcium, Blood 7.6 mg/dL (8.5-10.1); Creatinine, Blood 4.1 mg/dL (0.60-1.20); Globulin, Blood 4.3 g/dL (2.2-4.0); Potassium, Blood 4.3 mmol/L (3.5-5.5); Total Protein, Blood 6.1 g/dL (6.4-8.2)
[2022-03-07 02:43] LABS: Source, Urine Clean Catch
[2022-03-07 02:48] LABS: Bilirubin, Urine Neg (Neg); Blood, Urine 4+ (Neg); Glucose Qualitative, Urine 4+ (Neg); Ketones, Urine Neg (Neg); Leukocyte Esterase, Urine Neg (Neg); Nitrite, Urine Neg (Neg); Protein, Urine 4+ (Neg); Specific Gravity, Urine 1.015 (1.003-1.022); Urobilinogen, Urine NORM (Normal)
[2022-03-07 02:50] LABS: Appearance, Urine Clear (Clear); Color, Urine Yellow (P-Yellow)
[2022-03-07 03:07] LABS: U Amphetamine Screen DETECTED; U Barbituate Screen Not Detected; U Benzodiazapine Screen Not Detected; U Buprenorphine Screen Not Detected; U Cannabinoids Screen DETECTED; U Cocaine Screen Not Detected; U Methadone Screen Not Detected; U Methamphetamine Screen DETECTED; U Opiates Screen Not Detected; U Oxycodone Screen Not Detected; U Phencyclidine Screen Not Detected; U Propoxyphene Screen Not Detected
[2022-03-07 03:21] LABS: Influenza A, PCR NEGATIVE (NEGATIVE); Influenza B, PCR NEGATIVE (NEGATIVE); Resp Syncytial Virus, PCR NEGATIVE (NEGATIVE); SARS-Cov-2 (COVID-19) PCR, MMC NEGATIVE (NEGATIVE)
[2022-03-07 03:33] LABS: Amorphous Light (0-Heavy); Bacteria Rare /hpf; Red Blood Cells, Urine 0-2 /hpf (0-2); Squamous Epithelial Cells Not Seen /hpf (Few); White Blood Cells, Urine 0-2 /hpf (0-5)
[2022-03-07 03:34] LABS: Transitional Epithelial Cells Few /hpf (0-Rare)
[2022-03-07 04:32] LABS: PCO2 Venous 46.3 mmHg (38-42); pH Blood Venous 7.29 (7.34-7.37)
[2022-03-07 04:33] LABS: Base Excess Venous -4.3 mmol/L; Bicarbonate Venous 20.6 mmol/L (24.0-30.0)
--- NOTE | 2022-03-07 10:45 | NUR ---
INITIAL ASSESSMENT PATIENT ALERT AND ORIENTED X 4. PATIENT INDEPENDENT IN ROOM. PATIENT AFEBRILE. PATIENT COMPLAINS OF 10/10 HEADACHE. PATIENT SATTING 90% AND GREATER ON RA. LUNGS CLEAR THROUGHOUT. PATIENT HAS FREQUENT COUGH AND STATES THAT HE IS COUGHING UP SMALL TO LARGE AMOUNT OF THICK, YELLOW PHLEGM. PATIENT STATED THAT COUGH STARTED AROUND 2 DAYS AGO. PATIENT REPORTS SOB WITH EXERTION. PATIENT IN SR, HR 80S TO 90S. SBP IN THE 160S. DBP IN THE 1-TEENS. NITRO DRIP AT 200 MCG/ MINUTE. LEGS AND BILAT FEET HAVE 2+ EDEMA. GI WNL. PATIENT USES URINAL INDEPENDENTLY. PATIENT RECEIVING SCHEDULED LASIX. SKIN PALE AND COOL. PATIENT HAS SCATTERED SCABS AND SCARS TO BACK AND LEGS. MRSA NOSE CULTURE SENT TO LAB. MED REC COMPLETE FROM LIST FROM [facility]. PATIENT ORIENTED TO UNIT, ROOM AND CALL LIGHT. BED LOW. WILL CONTINUE TO MONITOR PATIENT FREQUENTLY THROUGHOUT SHIFT.
[2022-03-07] MEDS ORDERED: ATOR10 PO (11:17)
[2022-03-07] MEDS ORDERED: AZIT250 PO (11:18)
[2022-03-07] MEDS ORDERED: BASAGLAR K100 UNIT/1 SC (11:20)
--- NOTE | 2022-03-07 13:06 | NUR ---
DR. BLOCK UPDATED ON PATIETN STATUS. INFORMED THAT BP 176/118, THAT NITRO DRIP AT 250 MCG/ MINUTE AND THAT PATIENT IS CURRENTLY SLEEPING. DR. BLOCK STATED THAT HE IS NOT OVERLY CONCERNED ABOUT SBP IN THE 170S. DR. BLOCK STATED TO ORDER CLONIDINE 0.1 TID AND GIVE FIRST DOSE NOW. CHARGE NURSE UPDATED.
--- NOTE | 2022-03-07 16:34 | NUR ---
DR. BLOCK UPDATED ON PATIENT STATUS. INFORMED THAT BP 174/93 AND THAT PATIENT REMAINS ON NITRO DRIP AT 250 MCG/ MINUTE. STATED TO ORDER HOME NORVASC.
--- NOTE | 2022-03-07 16:45 | NUR ---
PATIENT AFEBRILE. HR 70S TO 80S. SBP 150S. DBP IN THE LOW 100S. NITRO AT 250 MCG/ MINUTE. BLOOD SUGAR 226; COVERAGE GIVEN. NO OTHER ACUTE CHANGES TO NOTE ON AT THIS TIME.
--- NOTE | 2022-03-07 19:38 | NUR ---
SHIFT SUMMARY PATIENT REMAINED ALERT AND ORIENTED X 4, AFEBRILE. PATIENT INDEPENDENT IN BED. PATIENT CONTINUED TO RECEIVE PRN TYLENOL AND TRAMADOL FOR COMPLAINTS OF HEADACHE. PATIENT REMAINED SATTING 90% AND GREATER ON RA. PATIENT CONTINUED TO HAVE COUGH. PATIENT REMAINED SR TO ST, HR 70S TO LOW 100S. SBP 140S TO 180S. DBP 90S TO 130S. NITRO DRIP 200 TO 250 MCG/ MINUTE THIS SHIFT. SCHEDULED BP MEDS, NORVASC, CLONIDINE AND METOPROLOL, ORDERED AND ADMINISTERED THIS SHIFT. LEGS REMAIN EDEMATOUS. GI WNL. PATIENT HAS STRONG APPETITE. PATIENT RECEIVING SCHEDULED LASIX. 2875 MLS OF URINE OUT THIS SHIFT. NO CHANGES TO SKIN NOTED. PATIENT CONTINUED TO REPOSITION SELF THROUGHOUT SHIFT. MRSA NOSE CULTURE SENT TO LAB THIS SHIFT. ECHO PERFORMED THIS SHIFT AND SHOWED EF OF 25 TO 30%. MED REC COMPLETE FROM PHARMACY. PATIENT RESTING IN BED QUIETLY AT THIS TIME. REPORT GIVEN TO [facility] PROVIDER SCRIBE NURSE AT 1910.
[2022-03-08 03:45] LABS: BASOPHILS ABSOLUTE AUTO 0.09 K/mm3 (0.00-0.23); BASOPHILS PERCENT AUTO 1 % (0-2); EOSINOPHILS PERCENT AUTO 3 % (0-6); Hematocrit 29.9 % (37.0-53.0); Hemoglobin 9.5 g/dL (13.5-17.5); IMMATURE GRAN ABSOLUTE AUTO 0.04 K/mm3 (0.00-0.10); IMMATURE GRAN PERCENT AUTO 0 % (0-1); LYMPHOCYTES ABSOLUTE AUTO 1.67 K/mm3 (0.84-5.20); LYMPHOCYTES PERCENT AUTO 14 % (21-46); MONOCYTES ABSOLUTE AUTO 0.75 K/mm3 (0.16-1.47); MONOCYTES PERCENT AUTO 6 % (4-13); Mean Corpuscular HGB 28.1 pg (26.0-34.0); Mean Corpuscular HGB Conc 31.8 g/dL (31.5-36.5); Mean Corpuscular Volume 89 fL (80-100); Mean Platelet Volume 10.3 fL (9.1-12.4); NEUTROPHILS ABSOLUTE AUTO 9.23 K/mm3 (1.96-9.15); NEUTROPHILS PERCENT AUTO 76 % (41-73); Platelet Count 340 K/mm3 (150-400); RDW Coefficient Variation 15.5 % (11.7-14.2); RDW Standard Deviation 48.1 fL (35.1-46.3); Red Blood Cell Count 3.38 M/mm3 (4.30-5.90); White Blood Cell Count 12.18 K/mm3 (4.00-11.30)
[2022-03-08 04:03] LABS: Bun/Creatinine Ratio 14.4 (12.0-20.0); Calcium, Blood 7.6 mg/dL (8.5-10.1); Creatinine, Blood 4.1 mg/dL (0.60-1.20); Phosphorus, Blood 4.7 mg/dL (2.5-4.9); Potassium, Blood 4.1 mmol/L (3.5-5.5)
--- NOTE | 2022-03-08 06:41 | NUR ---
END OF SHIFT SUMMARY PT WAS C/O GUERRERO WHEN STARTED SHIFT CONTACTED MD AND ADVISED PLAN FOR DECREASING NITRO DRIP AND MAINTAING A SYSTOLIC BP <165. PERCOCET GIVEN FOR GUERRERO AND WAS EFFECTIVE BP MEDS GIVEN AND PRN HYDRALIZE WAS ABLE TO GET NITRO OFF. PT WAS STABLE WITH NO OTHER COMPLANTS
--- NOTE | 2022-03-08 08:00 | NUR ---
INITIAL ASSESSMENT PATIENT ALERT AND ORIENTED X 4, AFEBRILE. PATIENT INDEPENDENT IN BED AND WITH DANGLING. PATIENT STATES HE HAS SLIGHT HEADACHE BUT THAT IT IS MANAGEABLE AT THIS TIME. PATIENT SATTING 90% AND GREATER ON RA. LUNGS CLEAR T/O. PATIENT CONTINUES TO HAVE OCCASIONAL COUGH. PATIENT IN SR TO ST, HR 80S TO LOW 100S. SBP 140S TO 170S. DBP 90S TO LOW 100S. NITRO DRIP STOPPED ON LOG YARD DERRICK OPERATOR. PRN HYDRALAZINE GIVEN ON LOG YARD DERRICK OPERATOR AROUND 2100 AND 0400. LEGS AND FEET EDEMATOUS. GI WNL. PATIENT HAS VERY LARGE APPETITE. PATIENT VOIDING GOOD AMOUNTS OF URINE INTO URINAL INDEPENDENTLY. SKIN PALE BUT WARM. SCATTERED SCABS AND SCARS NOTED T/O BODY. IVS FLUSHED AND SALINE LOCKED. BED LOW, CALL LIGHT IN REACH. WILL CONTINUE TO MONITOR PATIENT FREQUENTLY THROUGHOUT SHIFT.
--- NOTE | 2022-03-08 09:07 | NUR ---
DR. BLOCK UPDATED ON PATIENT STATUS. INFORMED THAT WBCS INCREASING AND THAT KIDNEY AND LIVER LABS WORSENING. INFORMED THAT SBP 140S TO 170S AND DBP 90S TO LOW 100S THIS AM. INFORMED THAT NITRO DRIP TURNED OFF ON DIGITAL ASSISTANT. INFORMED THAT PRN HYDRALAZINE GIVEN TWICE ON DIGITAL ASSISTANT AROUND 2100 AND 0400. INFORMED THAT PATIENT REFUSED LOVENOX THIS AM AND STATED HE WOULD WEAR SCDS. ORDERS RECEIVED AND PLACED IN COMPUTER.
--- NOTE | 2022-03-08 09:48 | NUR ---
NO CHANGES FROM INITIAL ASSESSMENT THIS AM. PATIENT WILL BE TRANSFERRED TO MEDICAL FLOOR, ROOM 360 SHORTLY.
--- NOTE | 2022-03-08 09:56 | NUR ---
PATIENT BEING TAKEN TO MEDICAL FLOOR AT THIS TIME. BELONGINGS SENT WITH PATIENT.
--- NOTE | 2022-03-08 18:10 | NUR ---
SHIFT SUMMARY PT ARRIVED FROM ICU. PT ALERT AND ORIENTED, FOLLOWS COMMANDS. LAST BP 142/93, SCHEDULED MEDICATIONS ADMINSTERED. PT INDEPENDENT IN ROOM, ON RA, SPO2 > 92%. WILL CONTINUE TO MONITOR.
--- NOTE | 2022-03-09 02:23 | NUR ---
TELEMETRY EVENT: TECH REPORTS FIVE BEAT RUN OF V TACH, HR 95. FIRST EVENT.
[2022-03-09 04:16] LABS: Base Excess Venous -1.3 mmol/L; Bicarbonate Venous 22.8 mmol/L (24.0-30.0); PCO2 Venous 46.5 mmHg (38-42); pH Blood Venous 7.33 (7.34-7.37)
--- NOTE | 2022-03-09 04:52 | NUR ---
SHIFT SUMMARY PATIENT HAD FIVE BEAT RUN OF V TACH WITH HR 95. FIRST EVENT. START OF SHIFT NSR 84. AXOX 4 AND INDEPENDENT IN ROOM. PIVS REMAIN INTACT. CBG 332. DENIES CHEST PAIN, SOB, AND N/V. VSS/AFEBRILE. COOPERATIVE WITH CARE. CALL LIGHT IN REACH. BED IN LOWEST POSITION. WILL CONTINUE TO MONITOR UNTIL DAY SHIFT NURSE ASSUMES CARE.
[2022-03-09 04:55] LABS: Bun/Creatinine Ratio 15.9 (12.0-20.0); Calcium, Blood 7.2 mg/dL (8.5-10.1); Creatinine, Blood 4.47 mg/dL (0.60-1.20); Potassium, Blood 4.3 mmol/L (3.5-5.5)
--- NOTE | 2022-03-09 17:13 | NUR ---
SHIFT SUMMARY PT A&OX4 AND IN PLEASENT MOOD T/O SHIFT. PT RESTED IN BED T/O SHIFT. DR. BLAIR CONSULTED THIS SHIFT. HTN NOTED THIS SHIFT. TOLERATING PO INTAKE WELL @ THIS TIME. CALL LIGHT W/IN ROOM.
--- NOTE | 2022-03-10 04:02 | NUR ---
SHIFT SUMMARY 52 YR M ADMITTED ON 03/07/22 FOR CHF. FULL CODE. NO ACUTE CHANGES THIS SHIFT. 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 HE HAD HIS BRING HIM FOOD WELL. HE HAS DM2 SO NEED TO KEEP AN EYE ON HIS BLOOD SUGAR LEVELS. HE IS PLEASANT AND COOPERATIVE W/ CARE AND IS INDEPENDANT IN THE ROOM. HE WAS STARTED ON DARBOPOETIN THIS SHIFT. VITAL SIGNS ARE STABLE.
[2022-03-10 05:18] LABS: Bun/Creatinine Ratio 15.1 (12.0-20.0); Calcium, Blood 7.5 mg/dL (8.5-10.1); Creatinine, Blood 4.7 mg/dL (0.60-1.20); Magnesium, Blood 2.2 mg/dL (1.6-2.4); Phosphorus, Blood 4.7 mg/dL (2.5-4.9)
[2022-03-10 17:10] LABS: A/G RATIO 0.7 (0.7-1.7); ALBUMIN 1.9 g/dL (2.9-4.4); ALPHA-1-GLOBULIN 0.3 g/dL (0.0-0.4); ALPHA-2-GLOBULIN 0.9 g/dL (0.4-1.0); BETA GLOBULIN 0.9 g/dL (0.7-1.3); GAMMA GLOBULIN 0.7 g/dL (0.4-1.8); GLOBULIN, TOTAL 2.9 g/dL (2.2-3.9); M-SPIKE Not Observed g/dL (Not Observed); PROTEIN, TOTAL, SERUM 4.8 g/dL (6.0-8.5)
--- NOTE | 2022-03-10 17:20 | NUR ---
SHIFT SUMMARY- PT INDEPENDANT IN ROOM. VSS. PT UNHAPPY WITH CAFERIA PORTIONS. PT COOPERATIVE WITH ALL CARE GIVEN. NO ACUTE CHANGES. PT RESTING IN BED MOST OF SHIFT. CALL LIGHT WITH IN REACH. WILL CONTINUE TO MONITOR.
--- NOTE | 2022-03-11 03:20 | NUR ---
SHIFT SUMMARY; NO ACUTE CHANGES IN CONDITION NOTED DURING NOC SHIFT. PATIENT EATING FOOD BROUGHT FROM HOME BY HIS SIGNIFICANT OTHER. MICHAEL IS EDUCATED ON HIS 2GM LOW SODIUM DIET. HE CONTINUES TO EAT CRACKERS THAT HAVE A HIGH SODIUM CONTENT. PATIENT IS ON A 1.5 LITER FLUID RESTRITIONS. ATTEMPT TO EDUCATE PATIENT ON THIS ARE MET WITH MUCH RESISTANCE. PATIENT IS CURRENTLY RESTING COMFORTABLY EYES CLOSED BREATHING EVEN AND UNLABORED. CALL LIGHT IN REACH. NO TELE ON PATIENT. HE IS INDEPENDANT TO AND FROM BATHROOM. HE USES CALL LIGHT APPROPRIATELY. WILL REMAIN AVAILABLE FOR THIS PATIENT FOR ANY WANTS OR NEEDS THAT COME UP PRIOR TO SHIFT CHANGE.
[2022-03-11 05:10] LABS: HBSAG SCREEN Negative (Negative)
[2022-03-11 05:11] LABS: Hematocrit 30.6 % (37.0-53.0); Hemoglobin 9.7 g/dL (13.5-17.5); Mean Corpuscular HGB 28.3 pg (26.0-34.0); Mean Corpuscular HGB Conc 31.7 g/dL (31.5-36.5); Mean Corpuscular Volume 89 fL (80-100); Mean Platelet Volume 10.4 fL (9.1-12.4); Platelet Count 348 K/mm3 (150-400); Red Blood Cell Count 3.43 M/mm3 (4.30-5.90)
[2022-03-11 05:34] LABS: Albumin, Blood 1.7 g/dL (3.4-5.0); Albumin/Globulin Ratio 0.4 (0.8-1.8); Bilirubin, Total 0.3 mg/dL (0.1-1.0); Bun/Creatinine Ratio 16.1 (12.0-20.0); Calcium, Blood 8.1 mg/dL (8.5-10.1); Creatinine, Blood 5.03 mg/dL (0.60-1.20); Globulin, Blood 3.8 g/dL (2.2-4.0); Potassium, Blood 3.7 mmol/L (3.5-5.5); Total Protein, Blood 5.5 g/dL (6.4-8.2)
[2022-03-11 06:10] LABS: COMPLEMENT C3, SERUM 128 mg/dL (82-167)
[2022-03-11 09:11] LABS: COMPLEMENT C3, SERUM 128 mg/dL (82-167); COMPLEMENT C4, SERUM 26 mg/dL (12-38)
--- NOTE | 2022-03-11 16:51 | NUR ---
SHIFT SUMMARY- PT INDEPENDANT IN ROOM. ON RA. APPETITE GOOD. NO ACUTE CHANGES. VSS. PT COMPLIANT WITH ALL CARE PROVIDED. PT RESTING NOW TO CALL LIGHT IN REACH. WILL CONTINUE TO MONITOR.
[2022-03-11 17:08] LABS: ANTI-DSDNA ANTIBODIES 7 IU/mL (0-9); RNP ANTIBODIES 0.2 AI (0.0-0.9); SJOGREN'S ANTI-SS-A <0.2 AI (0.0-0.9); SJOGREN'S ANTI-SS-B <0.2 AI (0.0-0.9); SMITH ANTIBODIES <0.2 AI (0.0-0.9)
--- NOTE | 2022-03-11 21:48 | NUR ---
MIGRANE PT STATES HE HAS A 01/25 MIGRANE. GAVE PRN TYLENOL WHICH PT SAID DID NOT HELP 1 HOUR LATER. OFFERED PRN TRAMIDOL, PT DECLINED. PT STATES AT HOME HE LAYS IN THE DARK UNTIL THE PAIN GETS BETTER. PT CURRENTLY IN HIS ROOM IN THE DARK.
--- NOTE | 2022-03-12 05:20 | NUR ---
SHIFT SUMMARY NO ACUTE EVENTS T/O SHIFT. PT WAS COOPERATIVE WITH CARE. PT C/O OF MIGRANE HEADACHE AND WAS GIVEN PRN MEDICATION PER EMAR WHICH PT STATED DID NOT HELP. PT STATED HE HAS A HX OF MIGRANES, AND AT HOME HE TREATS THEM BY LAYING IN THE DARK AND THAT THEY CAN LAST LONGER THAN 1 DAY. PT SLEPT THROUGH PART OF THE NIGHT AND THEN WOKE UP REQUESTING SOMETHING FOR MIGRANE PAIN BUT REFUSING WHAT WE HAD ORDERED. I CALLED DR MAYES AND REQUESTED SOMETHING FOR MIGRANES, SHE ORDERED 1 TAB OF IMITREX NOW. WILL FOLLOW UP WITH PAIN ASSESSMENT AND PASS INFO TO DAY NURSE IN REPORT.
[2022-03-12 09:25] LABS: Anion Gap 8 mmol/L (6-16); Blood Urea Nitrogen 81 mg/dL (8-24); Bun/Creatinine Ratio 15.7 (12.0-20.0); CO2, Blood 26 mmol/L (21-32); Chloride, Blood 105 mmol/L (98-108); Creatinine, Blood 5.15 mg/dL (0.60-1.20); Glomerular Filtration Rate 13 (60-); Glucose, Blood 159 mg/dL (70-99); Phosphorus, Blood 5.3 mg/dL (2.5-4.9); Potassium, Blood 3.9 mmol/L (3.5-5.5); Sodium, Blood 139 mmol/L (136-145)
--- NOTE | 2022-03-12 09:26 | NUR ---
pt a/ox3, sits on the side of the bed indep, up in room indep, states he's ready to go home, is frustrated with the food, lungs are clear a bit dim t/o, resp even and unlabored no cough noted, on r/a hrr, no edema noted at this time, he reports they swell at times, ppp +1, cap refill <3sec, vs stable afebrile, iv site is clear and patent, btx4, abd flat soft nontender, voids without diff, skin c/w/d, maew, dianne, call light in reach.
[2022-03-12] MEDS ORDERED: ERGO50000 PO (11:00)
--- NOTE | 2022-03-12 11:41 | NUR ---
pt has been discharged to home, went over instructions with him, he verbalized understanding, removed iv intact, called for a ride, will stay and eat lunch. call light in reach.
[2022-03-12 13:10] LABS: ATYPICAL PANCA <1:20 titer (Neg:<1:20); CYTOPLASMIC (C-ANCA) <1:20 titer (Neg:<1:20); PERINUCLEAR (P-ANCA) <1:20 titer (Neg:<1:20)
--- NOTE | 2022-03-12 13:46 | NUR ---
PT LEFT VIA WHEELCHAIR WITH [facility].
== END 2022-03-12 13:06 | disposition home or self-care (01) | DRG 291 ==
LOC: ER 00:09 → ICUW 08:03 → MEDS 08:03 → ICUW 09:51 → ICUE 10:15 → MEDS 03-08 10:10
PROVIDERS: Internal Medicine; Internal Medicine Nephrology; Physician Assistant; Student in an Organized Health Care Education/Training Program; ADMIT Internal Medicine
DX: I13.0 Hypertensive heart and chronic kidney disease with heart failure and stage 1 through stage 4 chronic kidney disease, or unspecified chronic kidney disease (principal); I50.43 Acute on chronic combined systolic (congestive) and diastolic (congestive) heart failure; E87.2 Acidosis; N17.9 Acute kidney failure, unspecified; I16.1 Hypertensive emergency; N18.4 Chronic kidney disease, stage 4 (severe); E11.22 Type 2 diabetes mellitus with diabetic chronic kidney disease; F15.10 Other stimulant abuse, uncomplicated; I27.21 Secondary pulmonary arterial hypertension; Z20.822 Contact with and (suspected) exposure to COVID-19; E78.00 Pure hypercholesterolemia, unspecified; I07.1 Rheumatic tricuspid insufficiency; J44.9 Chronic obstructive pulmonary disease, unspecified; E11.621 Type 2 diabetes mellitus with foot ulcer; L97.519 Non-pressure chronic ulcer of other part of right foot with unspecified severity; F12.10 Cannabis abuse, uncomplicated; F17.210 Nicotine dependence, cigarettes, uncomplicated; R34 Anuria and oliguria; D50.9 Iron deficiency anemia, unspecified; D63.1 Anemia in chronic kidney disease; I16.0 Hypertensive urgency; Z79.899 Other long term (current) drug therapy; Z79.51 Long term (current) use of inhaled steroids; Z98.890 Other specified postprocedural states; Z86.14 Personal history of Methicillin resistant Staphylococcus aureus infection; Z86.19 Personal history of other infectious and parasitic diseases; Z79.02 Long term (current) use of antithrombotics/antiplatelets; Z79.2 Long term (current) use of antibiotics; Z79.4 Long term (current) use of insulin; Z91.14 Patient's other noncompliance with medication regimen
CPT/HCPCS: 0241U; 36415; 71046; 80048; 80053; 80069; 81001; 82306; 82570; 82728; 82803; 82947; 83540; 83550; 83615; 83735; 83880; 83970; 84100; 84156; 84165; 84300; 84484; 85025; 85027; 86037; 86160; 86225; 86235; 87340; 93005; 93010; 93306; 94760; 96365; 96366; 96375; 96376; 99285-25; A9270; J0881; J1815; J1940; J2916; J7050

== ENCOUNTER 2022-08-07 07:51 | Inpatient (IN) | payer OTHER ==
[~2022-08-07] VITALS: Ht 172.7 cm; Wt 77.8 kg
[~2022-08-07 07:51] MED LIST changes: +ATOR10 PO; +AZIT250 PO; +BUME2 PO; +ERGO50000 PO; +INSULIN GL100 UNIT/2 SC; +Metformin HCl750 MG PO; +SILDENAFIL CITR20 M1 PO
[2022-08-07 08:55] LABS: BASOPHILS ABSOLUTE AUTO 0.06 K/mm3 (0.00-0.23); BASOPHILS PERCENT AUTO 0 % (0-2); EOSINOPHILS ABSOLUTE AUTO 0.02 K/mm3 (0.00-0.68); EOSINOPHILS PERCENT AUTO 0 % (0-6); Hematocrit 28.5 % (37.0-53.0); IMMATURE GRAN ABSOLUTE AUTO 0.16 K/mm3 (0.00-0.10); IMMATURE GRAN PERCENT AUTO 1 % (0-1); LYMPHOCYTES ABSOLUTE AUTO 0.93 K/mm3 (0.84-5.20); LYMPHOCYTES PERCENT AUTO 7 % (21-46); MONOCYTES ABSOLUTE AUTO 0.76 K/mm3 (0.16-1.47); MONOCYTES PERCENT AUTO 6 % (4-13); Mean Corpuscular HGB Conc 31.6 g/dL (31.5-36.5); Mean Corpuscular Volume 89 fL (80-100); NEUTROPHILS ABSOLUTE AUTO 11.83 K/mm3 (1.96-9.15); NEUTROPHILS PERCENT AUTO 86 % (41-73); NRBC ABSOLUTE 0.02 K/mm3 (0.00-0.02); NRBC Auto 0.1 /100 WBC (0.0-0.2); RDW Coefficient Variation 14.9 % (11.7-14.2); RDW Standard Deviation 48.1 fL (35.1-46.3); Red Blood Cell Count 3.22 M/mm3 (4.30-5.90); White Blood Cell Count 13.76 K/mm3 (4.00-11.30)
[2022-08-07 08:59] LABS: Mean Platelet Volume 10.6 fL (9.1-12.4)
[2022-08-07 09:11] LABS: Albumin, Blood 2.7 g/dL (3.4-5.0); Albumin/Globulin Ratio 0.6 (0.8-1.8); Bilirubin, Total 0.5 mg/dL (0.1-1.0); Bun/Creatinine Ratio 12.5 (12.0-20.0); Creatinine, Blood 7.65 mg/dL (0.60-1.20); Globulin, Blood 4.4 g/dL (2.2-4.0); Potassium, Blood 4.8 mmol/L (3.5-5.5); Total Protein, Blood 7.1 g/dL (6.4-8.2)
[2022-08-07 09:49] LABS: Platelet Count 258 K/mm3 (150-400)
[2022-08-07 12:48] LABS: Base Excess Venous -7.4 mmol/L; Bicarbonate Venous 18.5 mmol/L (24.0-30.0)
[2022-08-07 12:49] LABS: PCO2 Venous 40.5 mmHg (38-42); pH Blood Venous 7.29 (7.34-7.37)
[2022-08-07 14:09] LABS: Magnesium, Blood 1.7 mg/dL (1.6-2.4); Phosphorus, Blood 6.6 mg/dL (2.5-4.9)
[2022-08-07 14:52] LABS: Influenza A, PCR NEGATIVE (NEGATIVE); Influenza B, PCR NEGATIVE (NEGATIVE); Resp Syncytial Virus, PCR NEGATIVE (NEGATIVE); SARS-Cov-2 (COVID-19) PCR, MMC NEGATIVE (NEGATIVE)
--- NOTE | 2022-08-07 17:10 | NUR ---
ARRIVAL TO PCU/SHIFT SUMMARY PATIENT ARRIVED AT 1619 IN NO DISTRESS. PATIENT TRANSFERED TO PCU BED INDEPDENTLY. VSS. SPO2 >90% ON AIRVO 40L 64%. TELE SINUS TACH 108. PATIENT IS ALERT AND ORIENED X4. PATIENT REPORTS NO SHORTNESS OF BREATH, NO PAIN, OR CHEST PAIN/PRESSURE. PATIENT ABD IS ACTIVE NONTENDER. PATIENT VOIDS INDEPDENTLY. PATIENT SKIN HAS A JAUNDICE APPEARANCE AND SCARS ON BACK AND BILATERAL LEGS FROM SORES. PATIENT LUNG SOUNDS CLEAR. SEE ADMIT ASSESSMENT FOR FURTHER DETAILS. PATIENT ORIENTED TO ROOM AND CALL LIGHT. HOME MEDS NOT COMPLETE AWAITING FOR LIST FROM HOME TO CONFIRM THEM. MD TIERNEY IN TO ROOM TO DISCUSS TEMPORARY DIALYSIS CATH PLACEMENT. PATIENT REFUSED PLACEMENT AND MD TIERNEY EXPLAINED THE RISKS OF NOT HAVING IT AND PATIENT VERBALIZED UNDERSTANDING AND STILL REFUSED. PLAN IS TO DIUERSIS PATIENT AND PROVIDE SUPPLEMENTAL OXYGEN NEEDED. CALL LIGHT WITHIN REACH AND BED IN LOWEST POSITION.
--- NOTE | 2022-08-07 18:30 | NUR ---
OXYGEN REQUIRMENTS PATIENT DESATTING AND WAS IN LOW 80S. RESPIRATORY CARE CALLED AND INTO ROOM AND INCREASED SETTINGS ON AIRVO TO 50L AND 80%. THIS RN CALLED MD ARAUZ AND INFORMED HIM. AN ORDER FOR IV BUMUX ONE TIME WAS ORDERED. CALLED KIDNEY DOC BUT UNABLE TO GET AHOLD. PLAN OF CARE IS UP TO DATE AT THIS TIME. CALL LIGHT WITHIN REACH.
[2022-08-07 22:41] LABS: Percent Saturation 9.7 % (20.0-50.0)
--- NOTE | 2022-08-07 22:49 | NUR ---
211-SPOKE WITH VIA PHONE, IN ROOM WITH PT, INCREASED O2 DEMANDS AND PT NEED FOR HD, PT VERBALIZES UNDERSTANDING OF PT STATUS AND NEED FOR HD AND PT REFUSAL FOR HD, PT STATES HER CAR WONT START AND CANNOT MAKE IT UP TO HOSPITAL TONIGHT, ATTEMPTED TO HAVE SPEAK TO PT VIA PHONE BUT PT REFUSED SAYING HE COULDNT HEAR HER, ALTHOUGH WAS CLEARLY AUDIBLE TO ME FROM ACROSS THE ROOM.
[2022-08-07 22:51] LABS: Creatinine, Urine Random 45.7 mg/dL (27.00-270.00)
[2022-08-07 22:57] LABS: U Amphetamine Screen Not Detected; U Barbituate Screen Not Detected; U Benzodiazapine Screen Not Detected; U Buprenorphine Screen Not Detected; U Cannabinoids Screen Not Detected; U Cocaine Screen Not Detected; U Methadone Screen Not Detected; U Methamphetamine Screen Not Detected; U Opiates Screen Not Detected; U Oxycodone Screen Not Detected; U Phencyclidine Screen Not Detected; U Propoxyphene Screen Not Detected
--- NOTE | 2022-08-07 22:59 | NUR ---
2140-O2 AGAIN INCREASED 50L AND 80%, RT PLACED V60 IN ROOM
[2022-08-07 23:02] LABS: Protein, Urine Random 444.1 mg/dL (0.0-11.9)
--- NOTE | 2022-08-07 23:02 | NUR ---
2211- PT ARRIVED TO ROOM, BROUGHT HOME MEDS AND TAKE OUT, DISUSSED POC AND GIVING THEM A FEW MINUTES ALONE TO DISCUSS
--- NOTE | 2022-08-07 23:35 | NUR ---
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 PT HAD BEEN AGREEABLE TO A PLAN FOR DIALYSIS WITH DR. GREEN BUT SUBSEQUENTLY REFUSED DIALYSIS CATHETER PLACEMENT DURING THE CONSULT WITH DR. TIERNEY. PER JYOTI, PT'S HAD ARRIVED AT THE BEDSIDE AND THERE WAS FURTHER DISCUSSION WITH PT MAINTAINING THAT HE WAS UNWILLING TO PROCEED. UPON ARRIVAL TO THE ROOM, I ASKED THE PT TO TELL ME ABOUT THE MD VISITS. HE CONFIRMED THAT HE HAD BEEN AGREEABLE TO DIALYSIS UNTIL THE CONSENT DISCUSSION WITH DR. TIERNEY. PER THE PT "I GOT SCARED". AFTER FURTHER DISCUSSION, THE PT SHARED THAT HE DOESN'T LIKE NEEDLES AND HE THOUGHT THAT THE DIALYSIS CATHETER WOULD REQUIRE A LARGE NEEDLE POKING HIM EVERY TIME HE NEEDED DIALYSIS. PROVIDED EDUCATION ABOUT THE DIFFERENCES BETWEEN TEMPORARY AND LONG-TERM DIALYSIS, AND THE DIFFERENCES BETWEEN A DIALYSIS CATHETER AND A FISTULA. PT IS AGREEABLE TO STARTING DIALYSIS AND IS WILLING TO PROCEED WITH A CATHETER PLACEMENT IN THE MORNING. DR. GREEN WAS UNABLE TO BE REACHED BY PHONE AND NO RESPONSE WAS RECEIVED BY TEXT. DR. GORDON WAS CALLED TO PROVIDE AN UPDATE AND REQUEST IF BUMEX ORDER COULD BE CHANGED TO START TONIGHT SINCE PT'S O2 REQUIREMENTS HAVE BEEN INCREASING. ORDER RECEIVED AND COMMUNICATED TO JYOTI CROWE. WILL REQUEST THAT DR. TIERNEY RECONSIDER PLACEMENT IN THE AM NOW THAT FURTHER DISCUSSION HAS TAKEN PLACE.
[2022-08-08 03:26] LABS: Base Excess Venous -7.2 mmol/L; Bicarbonate Venous 18.9 mmol/L (24.0-30.0); PCO2 Venous 30.3 mmHg (38-42); pH Blood Venous 7.38 (7.34-7.37)
[2022-08-08 04:11] LABS: BASOPHILS ABSOLUTE AUTO 0.03 K/mm3 (0.00-0.23); BASOPHILS PERCENT AUTO 0 % (0-2); EOSINOPHILS ABSOLUTE AUTO 0.08 K/mm3 (0.00-0.68); EOSINOPHILS PERCENT AUTO 1 % (0-6); Hematocrit 21.9 % (37.0-53.0); Hemoglobin 7.3 g/dL (13.5-17.5); IMMATURE GRAN ABSOLUTE AUTO 0.06 K/mm3 (0.00-0.10); IMMATURE GRAN PERCENT AUTO 1 % (0-1); LYMPHOCYTES PERCENT AUTO 7 % (21-46); MONOCYTES ABSOLUTE AUTO 0.82 K/mm3 (0.16-1.47); MONOCYTES PERCENT AUTO 7 % (4-13); Mean Corpuscular HGB 28.5 pg (26.0-34.0); Mean Corpuscular HGB Conc 33.3 g/dL (31.5-36.5); Mean Corpuscular Volume 86 fL (80-100); Mean Platelet Volume 10.4 fL (9.1-12.4); NEUTROPHILS ABSOLUTE AUTO 10.26 K/mm3 (1.96-9.15); NEUTROPHILS PERCENT AUTO 85 % (41-73); Platelet Count 227 K/mm3 (150-400); RDW Coefficient Variation 14.7 % (11.7-14.2); RDW Standard Deviation 45.9 fL (35.1-46.3); Red Blood Cell Count 2.56 M/mm3 (4.30-5.90); White Blood Cell Count 12.05 K/mm3 (4.00-11.30)
[2022-08-08 04:51] LABS: Magnesium, Blood 2.4 mg/dL (1.6-2.4)
[2022-08-08 04:55] LABS: Albumin, Blood 2.3 g/dL (3.4-5.0); Anion Gap 13 mmol/L (6-16); Blood Urea Nitrogen 104 mg/dL (8-24); Bun/Creatinine Ratio 12.5 (12.0-20.0); CO2, Blood 18 mmol/L (21-32); Calcium, Blood 7.5 mg/dL (8.5-10.1); Chloride, Blood 103 mmol/L (98-108); Creatinine, Blood 8.34 mg/dL (0.60-1.20); Glomerular Filtration Rate 7 (60-); Glucose, Blood 148 mg/dL (70-99); Potassium, Blood 4.3 mmol/L (3.5-5.5); Sodium, Blood 134 mmol/L (136-145)
--- NOTE | 2022-08-08 05:23 | NUR ---
PT ENDING THE NIGHT ON 50L AND 70%, AT BEDSIDE OVERNIGHT, OTHER VSS, 850CC UO, HGB DROPPED FROM 9.0 TO 7.3, CR 8.35, GFR 7, WILL CONT TO MONITOR UNTIL SHIFT CHANGE
--- NOTE | 2022-08-08 05:57 | NUR ---
TROP [id number] CALLED TO BRITTANY, NO NEW ORDERS
--- NOTE | 2022-08-08 08:18 | NUR ---
Received report from Noc RN. Patient is alert and oriented and is able to communicate his needs. he is independent with positioning for comfort. He is on AirVo 50L 70% and sats 92% and denies any SOB currently. He has 20 ga IV to RAC flushed and SL'd and 18ga IV to LFA flushed and SL's, ST 107. Plan is for dialysis cath today.
--- NOTE | 2022-08-08 10:20 | NUR ---
patient up to cammode after breakfast and ate well. No changes to AirVo at 50L 70% and sats >90%. VSS. He tolerated med and changed nitro paste on right upper chest. Working on getting Dialysis cath placed with Dr Dale. CHRIS. Patient has exertional SOB. CBG 216 cover 2 units.
--- NOTE | 2022-08-08 12:30 | NUR ---
Patient did not like lunch and ate small amount. We are going to move him to PCU 20 to accomidate AirVo, Dialysis machine and better room to place trialysis cath. No changes to AIRVo or fluids, Patient stating body aches and asked for warm blankets.
--- NOTE | 2022-08-08 14:00 | NUR ---
Patient transferred by wheelchair to PCU 20. Called Dr Wayne for placement of Trialysis cath. Dr Oliva by and consulted cardiology, changed to metoprolol succinate at 100 mg PO daily starting in am and stop nitro paste and diagnostic cath begining of week. AirVo at 50L 70% and sats >90% and NS at 100 ml/hr. Uses urinal appropriately.
--- NOTE | 2022-08-08 18:27 | NUR ---
Patient getting dialysis and doing well, systolic 130-150's. medicated with fentanyl per SEP for severe body aches. He remains on AirVO 60L 80% and sats >90%. Family at bedside. Patient has Trialysis cath RIJ dressing intact and site WNL's. He has been tolerating dinner well. held Bumex for post Dialysis.
--- NOTE | 2022-08-09 00:52 | NUR ---
PT UPDATE PT SITTING UP AT EDGE OF BED TO USE BEDSIDE COMMODE. PT REFUSES THIS RN AT BEDSIDE DESPITE THIS RN EDUCATING R/T FALL RISKS. PT VERBALIZES HIS ABILITY TO TRANSFER TO BEDSIDE COMMODE ON HIS OWN W/O THIS RN PRESENT. REQUESTS THIS RN STEP OUTSIDE ROOM TO PROVIDE HIM WITH PRIVACY. THIS RN REQUESTS THAT DOOR REMAIN OPEN SO THIS RN CAN LISTEN FOR HIM. PT IS AGREEABLE. DENIES DIZZINESS/LIGHTHEADEDNESS ON SITTING ON EDGE OF BED. SATS 100% ON AIR VO WHILE SITTING UP. STATES HE IS ENJOYING SITTING ON EDGE OF BED AT THIS TIME. THIS RN APPLIES SOME MEDIPORE TAPE AROUND TRIALYSIS TEGADERM D/T SOME BLEEDING FROM UNDER DRESSING PULLING UP ADHERENT. THIS RN NOTICES CLOT IN URINAL, PT STATES HE COUGHED IT UP AND HAS COUGHED UP BLOOD A FEW TIMES SINCE YESTERDAY AM. THIS RN GIVES PT A SPECIMEN CUP AND ASKS THAT HE COUGH UP ANY OTHER CLOTS INTO THE CUP. PT VERBALIZES UNDERSTANDING. PT UP TO USE BEDSIDE COMMODE INDEPENDENTLY AT THIS TIME. SATS >96% ON AIRVO. THIS RN SITS OUTSIDE ROOM TO LISTEN FOR PT.
[2022-08-09 04:33] LABS: Hematocrit 21.9 % (37.0-53.0); Hemoglobin 7.3 g/dL (13.5-17.5); Mean Corpuscular HGB 28.3 pg (26.0-34.0); Mean Corpuscular HGB Conc 33.3 g/dL (31.5-36.5); Mean Corpuscular Volume 85 fL (80-100); Mean Platelet Volume 10.5 fL (9.1-12.4); Platelet Count 228 K/mm3 (150-400); RDW Coefficient Variation 14.5 % (11.7-14.2); RDW Standard Deviation 45.1 fL (35.1-46.3); Red Blood Cell Count 2.58 M/mm3 (4.30-5.90); White Blood Cell Count 12.36 K/mm3 (4.00-11.30)
[2022-08-09 04:50] LABS: Albumin, Blood 2.1 g/dL (3.4-5.0); Anion Gap 11 mmol/L (6-16); Blood Urea Nitrogen 68 mg/dL (8-24); Bun/Creatinine Ratio 10.3 (12.0-20.0); CHOL/HDL RATIO 3.1; CO2, Blood 24 mmol/L (21-32); Calcium, Blood 7.5 mg/dL (8.5-10.1); Chloride, Blood 98 mmol/L (98-108); Cholesterol 133 mg/dL (50-200); Creatinine, Blood 6.63 mg/dL (0.60-1.20); Glomerular Filtration Rate 9 (60-); Glucose, Blood 191 mg/dL (70-99); HDL Cholesterol 43 mg/dL (>39); LDL/HDL RATIO 1.5; Low Density Lipoprotein Chol 66 mg/dL (0-110); Phosphorus, Blood 6.5 mg/dL (2.5-4.9); Potassium, Blood 3.5 mmol/L (3.5-5.5); Sodium, Blood 133 mmol/L (136-145); Triglycerides 119 mg/dL (30-160); Very Low Density Lipoprot Chol 23 mg/dL (6-32)
--- NOTE | 2022-08-09 06:28 | NUR ---
SHIFT SUMMARY PT AOX4 T/O SHIFT, PT SEEMED LETHARGIC DURING AND AFTER DIALYSIS. LONG ACTING INSULIN HELD INITIALLY D/T CONCERN PT WOULD NOT BE EATING D/T LETHARGY FROM DIALYSIS AND CBG IN 90'S. PT AWOKEN LATER IN SHIFT AND SAT UP AND ATE, UP AND AWAKE AT EDGE OF BED AND USED BEDSIDE COMMODE INDEPENDENTLY. D/T CBG IN 200'S LONG ACTING GIVEN LATER IN SHIFT IN EARLY AM. PT AIR-VO TITRATED DOWN EARLY THIS AM TO 55L 45% O2. TITRATED BACK UP D/T PT DESAT WHILE SLEEPING TO MID 70'S-80'S %. CURRENTLY AT 60 L AND 70% 02 ON AIRVO, SATS 89-94% DEPENDING ON ACTIVITY. REQUIRES OCCASIONAL 100% WITH MOVEMENT IN BED. DOES NOT APPEAR SIGNIFICANTLY DYSPNEIC BUT REMAINS TACHYPNEIC. DENIED ANY CP T/O NIGHT BUT C/O PERSISTENT FULL BODY PAIN, APPEARED TENDER ALL OVER BODY. SLIGHTEST MOVEMENTS APPEAR TO CAUSE PAIN. MEDICATED PER EMAR WITH PRN MEDS.
--- NOTE | 2022-08-09 07:34 | NUR ---
Received report from Fiordaliza RN. Patientsitting up in bed c/o generalized pain 02/25. He is on airVo 60L 80% and sats >90%. Gave all am meds early as he will have dialysis later and he tolerated well. He is alert and oriented an dis able to comunicate his needs. H ehas Trialysis cath to [facility] and infused am meds. MAEW but weak and painful. He has 20ga LFA and 18ga ASHTYN and are flushed and SL'd. He is independent with positioning and is one assist to transfer in room.
--- NOTE | 2022-08-09 08:00 | NUR ---
Patient resting and awakens when entering room or verbal stimuli. He is on RA and sats >90%. Left chest pacer site C/D/I and no swelling. He is paced about 95% of the time. He is alert and oriented and is able to communicate his needs. LE's bilaterally look WNL and [facility]. He has 290ga IV to RAC and is SL's post flush.
--- NOTE | 2022-08-09 10:05 | NUR ---
Patient went off to see dialysis around 9 o'clock. No shanges to AirVo. No significant changes. VSS. K Pad in place. Pain medication helping with pain.
--- NOTE | 2022-08-09 10:24 | NUR ---
Dr Rodriguez and Dr Maldonado have seen patient and will be discharging patient home. I am trying to contact family to assure he has resource before discharge. PT in room evauating patient. He remains on RA and sats >90%. He tolerated am meds PO without difficulty a few at a time with water. Pacer site WNL's and is paced.
--- NOTE | 2022-08-09 12:12 | NUR ---
Patient continues to be in dialysis. CBG WNL and no coverage needed. Patient denies any current needs.
--- NOTE | 2022-08-09 13:28 | NUR ---
Patient just put back in room from dialysis, they pulled 3 liters off. He c/o body aches and medicated per SEP. He tolerated late lunch after dialysis. Denies any other needs. Current setting from RT after getting back from Dialysis is 50L 65% and sats >90%.
--- NOTE | 2022-08-09 18:02 | NUR ---
SHIFT SUMMARY PT A&O X 4, SITTING ON EDGE OF BED THIS EVENING, STATES HIS SOB IS MUCH BETTER, REMAINS ON AIRVO 50L/45%, SLOWLY TITRATING DOWN. TOLERATING PO INTAKE WELL. USING BEDSIDE COMMODE AND URINAL APPROPRIATELY. C/O MODERATE TO SEVERE PAIN, MEDICATED c PRN PAIN MEDS WITH ADEQUATE RELIEF. NO OTHER ACUTE CHANGES FROM PRIOR NOTES.
[2022-08-10 04:47] LABS: PCO2 Arterial 37.6 mmHg (35-45); pH Blood Arterial 7.43 (7.35-7.45)
[2022-08-10 04:48] LABS: Hematocrit 20.3 % (37.0-53.0); Hemoglobin 6.7 g/dL (13.5-17.5); Mean Corpuscular HGB 28.4 pg (26.0-34.0); Mean Corpuscular Volume 86 fL (80-100); Mean Platelet Volume 10.8 fL (9.1-12.4); Platelet Count 233 K/mm3 (150-400); RDW Coefficient Variation 14.7 % (11.7-14.2); Red Blood Cell Count 2.36 M/mm3 (4.30-5.90); White Blood Cell Count 9.99 K/mm3 (4.00-11.30)
[2022-08-10 05:05] LABS: Albumin, Blood 1.9 g/dL (3.4-5.0); Anion Gap 9 mmol/L (6-16); Blood Urea Nitrogen 56 mg/dL (8-24); Bun/Creatinine Ratio 9.8 (12.0-20.0); CO2, Blood 25 mmol/L (21-32); Calcium, Blood 7.6 mg/dL (8.5-10.1); Chloride, Blood 100 mmol/L (98-108); Creatinine, Blood 5.72 mg/dL (0.60-1.20); Glomerular Filtration Rate 11 (60-); Glucose, Blood 199 mg/dL (70-99); Phosphorus, Blood 5.7 mg/dL (2.5-4.9); Potassium, Blood 3.8 mmol/L (3.5-5.5); Sodium, Blood 134 mmol/L (136-145)
--- NOTE | 2022-08-10 06:55 | NUR ---
UPDATE HOSPITALIST INFORMED OF HGB AT 6.7. INSTRUCTED TO CONTACT NEPHROLOGY. ATTEMPTED TO CALL AND MESSAGE NEPHROLOGY. NO NEW ORDERS AT THIS TIME. DAYSHIFT TO CONTACT NEPHROLOGY FOR ORDERS.
--- NOTE | 2022-08-10 07:39 | NUR ---
CARE ASSUMPTION THIS RN ASSUMED CARE AT 0700. VSS. TELE SR. PATIENT IS ALERT AND ORIENTED X4. PATIENT REPROTS GENERALIZED PAIN AT 7, AND WILL RECEIVE PAIN MED WITH MORNING MEDICATIONS PER EMAR. SEE EMAR. PATIENT REPORTS NO CHEST PAIN/PRESSURE. PATIENT REPORTS NO SHORTNESS OF BREATH. PATIENT IS ABLE TO VOID AND TRANSFER INDEPDENTLY TO BEDSIDE COMODE. SEE SHIFT ASSESSMENT FOR FURTHER DETIALS. PLAN IS FOR PATIENT TO GO TO DIALYSIS AND RECEIVE A UNIT OF BLOOD DURING. PLAN OF CARE IS UP TO DATE.
--- NOTE | 2022-08-10 07:51 | NUR ---
SHIFT SUMMARY PT IS AOX4, SBP 130'S-150'S. DOWN TO 100'S-110'S FOLLOWING ADMIN OF EVENING MEDS. HYDRALAZINE HELD D/T CONCERNS FOR HYPOTENSION W/NEW COMBINATION OF MEDS LAST NIGHT. PT SEEMED TO SLEEP BETTER LAST NIGHT THAN PRIOR. URINATED ONCE THIS AM. NO C/O CP, CONTINUES TO C/O ALL OVER BODY ACHES. IV SALINE LOCKED, FRONT END DEVELOPER ATTEMPTED TO REACH DR GREEN THIS AM TO ASK IF BLOOD CAN BE TRANSFUSED THIS AM W/DIALYSIS. DID NOT HEAR BACK OF YET FROM DR GREEN REGARDING BLOOD ORDER, VLADIMIR FROM DIALYSIS UPDATED.
--- NOTE | 2022-08-10 09:00 | NUR ---
PATIENT TO DIALYSIS PATIENT TO DIALYSIS.
[2022-08-10 12:08] LABS: HBSAG SCREEN Negative (Negative); HCV ANTIBODY <0.1 (0.0-0.9)
--- NOTE | 2022-08-10 12:41 | NUR ---
BACK FROM DIALYSIS PATIENT BACK FROM DIALYSIS AT 1230.
--- NOTE | 2022-08-10 17:35 | NUR ---
SHIFT SUMMARY PATIENT NEURO REMAINS INTACT. VITAL SIGNS REMAIN INTACT. PATIENT IS ABLE TO USE CALL LIGHT TO MAKE NEEDS KNOWN. PATIENT IS INDEPDENT TO BEDSIDE COMODE AND BEDSIDE URINAL. PATIENT WILL BE NPO AT 08/11/22 AT 0100 FOR ANGIO. THIS RN INFORMED THE PATIENT OF THIS. CALL LIGHT IS WITHIN REACH AND BED IN LOWEST POSITION. NO ACUTE CHANGES.
[2022-08-11 06:09] LABS: BASOPHILS ABSOLUTE AUTO 0.07 K/mm3 (0.00-0.23); BASOPHILS PERCENT AUTO 1 % (0-2); EOSINOPHILS ABSOLUTE AUTO 0.64 K/mm3 (0.00-0.68); EOSINOPHILS PERCENT AUTO 7 % (0-6); Hematocrit 24.7 % (37.0-53.0); Hemoglobin 7.9 g/dL (13.5-17.5); IMMATURE GRAN ABSOLUTE AUTO 0.03 K/mm3 (0.00-0.10); IMMATURE GRAN PERCENT AUTO 0 % (0-1); LYMPHOCYTES ABSOLUTE AUTO 1.23 K/mm3 (0.84-5.20); LYMPHOCYTES PERCENT AUTO 13 % (21-46); MONOCYTES ABSOLUTE AUTO 0.91 K/mm3 (0.16-1.47); MONOCYTES PERCENT AUTO 10 % (4-13); Mean Corpuscular HGB 27.4 pg (26.0-34.0); Mean Corpuscular Volume 86 fL (80-100); Mean Platelet Volume 10.9 fL (9.1-12.4); NEUTROPHILS ABSOLUTE AUTO 6.53 K/mm3 (1.96-9.15); NEUTROPHILS PERCENT AUTO 69 % (41-73); Platelet Count 304 K/mm3 (150-400); RDW Coefficient Variation 15.6 % (11.7-14.2); RDW Standard Deviation 48.9 fL (35.1-46.3); Red Blood Cell Count 2.88 M/mm3 (4.30-5.90); White Blood Cell Count 9.41 K/mm3 (4.00-11.30)
[2022-08-11 06:35] LABS: Calcium, Blood 8.3 mg/dL (8.5-10.1); Creatinine, Blood 5.65 mg/dL (0.60-1.20); Potassium, Blood 4.3 mmol/L (3.5-5.5)
--- NOTE | 2022-08-11 18:52 | NUR ---
ASSUMED CARE OF PT AT 0700 THIS AM. PT TO DENTAL INSURANCE COORDINATOR IN EARLY AFTERNOON, NO INTERVENTIONS, PT WILL BE CONSIDERED FOR FURTHER MORE AGRESSIVE INTERVENTIONS IN THE FUTURE WHEN RENAL FUNCTION IMPROVES. PT DID NOT HAVE HD TODAY. DR MILLS CONSULTED TO REMOVE TEMP HD CATHETER AND PLACE PERMA-CATH. SEE DOCUMENTED VS AND ASSESSMENT. NO ACUTE EVENTS T/O THE SHIFT. PT ABLE TO USE CALL LIGHT FOR NEEDS, CALL LIGHT IN REACH, WILL CONTINUE TO MONITOR AND GIVE REPORT TO NOC SHIFT RN.
--- NOTE | 2022-08-11 21:07 | NUR ---
ASSUMPTION OF CARE THIS RN ASSUMED CARE OF PATIENT AT 1900. REPORT TAKEN FROM PAULA CROWE. VITALS STABLE. ON 2L VIA NC. ALERT AND ORIENTED FULLY. ABLE TO MAKE NEEDS KNOWN. MEDICATING PER EMAR FOR PAIN. PATIENT IS ABLE TO REPOSITION SELF IN BED INDEPENDENTLY. RIJ TRIALYSIS CATH WNL. BED IN LOWEST POSITION AND CALL LIGHT WITHIN REACH.
--- NOTE | 2022-08-12 04:43 | NUR ---
SHIFT SUMMARY NO ACUTE CHANGES DURING THIS SHIFT. PATIENT A&O X4. ABLE TO MAKE NEEDS KNOWN AND CALLING APPROPRIATELY. RIGHT RADIAL SITE FULLY RECOVERED, DRESSING C/D/I; NO HEMATOMA, BLEEDING, OOZING, DISCOLORATION, OR TENDERNESS NOTED. ARMBOARD IN PLACE. PATIENT AWARE OF RESTRICTIONS FOR BENDING/LIFTING. VITALS STABLE. PATIENT ON 1L VIA NC WITH SPO2 >92%. MEDICATING PER EMAR FOR PAIN. BED IN LOWEST POSITION AND CALL LIGHT WITHIN REACH. THIS RN WILL CONTINUE TO MONITOR UNTIL SHIFT CHANGE AT 0700.
[2022-08-12 05:21] LABS: Anion Gap 13 mmol/L (6-16); Blood Urea Nitrogen 92 mg/dL (8-24); Bun/Creatinine Ratio 13.2 (12.0-20.0); CO2, Blood 23 mmol/L (21-32); Calcium, Blood 8.2 mg/dL (8.5-10.1); Chloride, Blood 100 mmol/L (98-108); Creatinine, Blood 6.97 mg/dL (0.60-1.20); Glomerular Filtration Rate 9 (60-); Glucose, Blood 201 mg/dL (70-99); Phosphorus, Blood 8.8 mg/dL (2.5-4.9); Potassium, Blood 4.4 mmol/L (3.5-5.5); Sodium, Blood 136 mmol/L (136-145)
[2022-08-12] MEDS ORDERED: METO100ER PO (12:09)
[2022-08-12] MEDS ORDERED: ACET325 PO (12:09)
[2022-08-12] MEDS ORDERED: ASCO500 PO (12:10)
[2022-08-12] MEDS ORDERED: ASPI81CH PO (12:10)
[2022-08-12] MEDS ORDERED: CALPHRON PO (12:11)
[2022-08-12] MEDS ORDERED: FERSU300 PO (12:11)
[2022-08-12] MEDS ORDERED: HYDRA50 PO (12:12)
[2022-08-12] MEDS ORDERED: Isosorbide Dini30 MG PO (12:13)
[2022-08-12] MEDS ORDERED: CALC.25 PO (12:13)
[2022-08-12] MEDS ORDERED: Norco 10-325 T1 EACH PO (12:13)
== END 2022-08-12 14:17 | disposition home or self-care (01) | DRG 280 ==
LOC: ER 07:51 → PCU 11:29 → ERHOLD 11:29 → PCU 11:29
PROVIDERS: Emergency Medicine; Internal Medicine; Internal Medicine Nephrology; Nurse Practitioner Acute Care; ADMIT Hospitalist
PROC: 5A0935A Assistance with Respiratory Ventilation, Less than 24 Consecutive Hours, High Flow/Velocity Cannula (ICD-10-PCS; 2022-08-07)
PROC: 30233N1 Transfusion of Nonautologous Red Blood Cells into Peripheral Vein, Percutaneous Approach (ICD-10-PCS; principal; 2022-08-10)
PROC: 4A023N7 Measurement of Cardiac Sampling and Pressure, Left Heart, Percutaneous Approach (ICD-10-PCS; 2022-08-11)
PROC: B211YZZ Fluoroscopy of Multiple Coronary Arteries using Other Contrast (ICD-10-PCS; 2022-08-11)
PROC: B24BZZ3 Ultrasonography of Heart with Aorta, Intravascular (ICD-10-PCS; 2022-08-11)
PROC: 0JH63XZ Insertion of Tunneled Vascular Access Device into Chest Subcutaneous Tissue and Fascia, Percutaneous Approach (ICD-10-PCS; 2022-08-12)
PROC: 02HV33Z Insertion of Infusion Device into Superior Vena Cava, Percutaneous Approach (ICD-10-PCS; 2022-08-12)
PROC: B548ZZA Ultrasonography of Superior Vena Cava, Guidance (ICD-10-PCS; 2022-08-12)
DX: I13.0 Hypertensive heart and chronic kidney disease with heart failure and stage 1 through stage 4 chronic kidney disease, or unspecified chronic kidney disease (principal); I21.4 Non-ST elevation (NSTEMI) myocardial infarction; I50.23 Acute on chronic systolic (congestive) heart failure; J96.21 Acute and chronic respiratory failure with hypoxia; N17.9 Acute kidney failure, unspecified; E87.20 Acidosis, unspecified; N18.4 Chronic kidney disease, stage 4 (severe); K04.7 Periapical abscess without sinus; I42.0 Dilated cardiomyopathy; Z91.14 Patient's other noncompliance with medication regimen; Z20.822 Contact with and (suspected) exposure to COVID-19; E83.39 Other disorders of phosphorus metabolism; E55.9 Vitamin D deficiency, unspecified; E61.1 Iron deficiency; I27.20 Pulmonary hypertension, unspecified; I08.1 Rheumatic disorders of both mitral and tricuspid valves; E11.22 Type 2 diabetes mellitus with diabetic chronic kidney disease; D63.1 Anemia in chronic kidney disease; I25.5 Ischemic cardiomyopathy; I25.10 Atherosclerotic heart disease of native coronary artery without angina pectoris; Z91.15 Patient's noncompliance with renal dialysis; Z87.891 Personal history of nicotine dependence; Z79.4 Long term (current) use of insulin; Z79.899 Other long term (current) drug therapy
CPT/HCPCS: 0241U; 36415; 36430; 36558; 36600; 71046; 76937; 77001; 80048; 80053; 80061; 80069; 82306; 82550; 82570; 82728; 82803; 82947; 83036; 83540; 83550; 83605; 83735; 83880; 83970; 84100; 84145; 84156; 84484; 85025; 85027; 86317; 86704; 86803; 86850; 86900; 86901; 86923; 87040; 87340; 87449; 93005; 93010; 93308; 93321; 93454; 94762; 96365; 96375; 99152; 99153; 99285-25; A9270; C1750; C1769; C1887; C1894; J0456; J0696; J1644; J1815; J1940; J2060; J2250; J2405; J3010; J3475; J7030; J7040; J7050; P9016; Q9967

== ENCOUNTER 2022-10-05 14:38 | Observation (INO) | payer OTHER ==
[~2022-10-05] VITALS: Ht 172.7 cm; Wt 71.3 kg
[~2022-10-05 14:38] MED LIST changes: +ASPI81CH PO; +CALC.25 PO; +CALPHRON PO; +FERSU300 PO; +HYDRA50 PO; +Isosorbide Mono30 MG PO; +METO100ER PO
[2022-10-05 15:23] LABS: BASOPHILS ABSOLUTE AUTO 0.03 K/mm3 (0.00-0.23); BASOPHILS PERCENT AUTO 0 % (0-2); EOSINOPHILS ABSOLUTE AUTO 0.11 K/mm3 (0.00-0.68); EOSINOPHILS PERCENT AUTO 1 % (0-6); Hematocrit 40.9 % (37.0-53.0); IMMATURE GRAN ABSOLUTE AUTO 0.06 K/mm3 (0.00-0.10); IMMATURE GRAN PERCENT AUTO 1 % (0-1); LYMPHOCYTES ABSOLUTE AUTO 1.49 K/mm3 (0.84-5.20); LYMPHOCYTES PERCENT AUTO 14 % (21-46); MONOCYTES ABSOLUTE AUTO 0.97 K/mm3 (0.16-1.47); MONOCYTES PERCENT AUTO 9 % (4-13); Mean Corpuscular HGB 30.5 pg (26.0-34.0); Mean Corpuscular HGB Conc 34.2 g/dL (31.5-36.5); Mean Corpuscular Volume 89 fL (80-100); Mean Platelet Volume 10.1 fL (9.1-12.4); NEUTROPHILS PERCENT AUTO 76 % (41-73); Platelet Count 358 K/mm3 (150-400); RDW Coefficient Variation 15.5 % (11.7-14.2); RDW Standard Deviation 50.6 fL (35.1-46.3); Red Blood Cell Count 4.59 M/mm3 (4.30-5.90); White Blood Cell Count 11.06 K/mm3 (4.00-11.30)
[2022-10-05 15:39] LABS: Influenza A, PCR NEGATIVE (NEGATIVE); Influenza B, PCR NEGATIVE (NEGATIVE); Resp Syncytial Virus, PCR NEGATIVE (NEGATIVE); SARS-Cov-2 (COVID-19) PCR, MMC NEGATIVE (NEGATIVE)
[2022-10-05 15:44] LABS: Albumin, Blood 3.5 g/dL (3.4-5.0); Albumin/Globulin Ratio 0.8 (0.8-1.8); Bilirubin, Total 0.4 mg/dL (0.1-1.0); Bun/Creatinine Ratio 8.1 (12.0-20.0); Creatinine, Blood 5.53 mg/dL (0.60-1.20); Globulin, Blood 4.3 g/dL (2.2-4.0); Potassium, Blood 4.3 mmol/L (3.5-5.5); Total Protein, Blood 7.8 g/dL (6.4-8.2)
[2022-10-05 17:30] LABS: Anti-Xa UFH, PHA Monitoring <0.10 IU/mL; International Normalized Ratio 1.03; Prothrombin Time Results 10.8 Sec (9.7-11.5)
--- NOTE | 2022-10-05 19:09 | NUR ---
ADMIT NOTE PATIENT NEW ADMIT FROM ER. ARRIVED TO ROOM AT 1830. ALERT AND ORIENTED. ABLE TO STAND AND TRANSFER SELF TO BED IN ROOM. BP HIGH, VS OTHERWISE STABLE. REPORTS MODERATE HEADACHE 6/10. HUNGRY. CHECKED CHEM BG AT 122, PROVIDED WITH SANDWICH AND SNACKS AND WATER. HEPARIN DRIP RUNNING. PATIENT STATES HIS WILL BRING IN MEDICATIONS FOR RECONCILIATION. REPORT GIVEN TO YOUTH PROGRAM DIRECTOR AMRITA MOELLER.
--- NOTE | 2022-10-05 19:14 | NUR ---
CONSULT CALLED TO DR GREEN, LEFT VOICEMAIL. ALSO SENT HIM A TEXT. NO RESPONSE AT THIS TIME.
--- NOTE | 2022-10-05 19:41 | NUR ---
ASSUMED PT CARE FORM EVEN RN ON DAYSHIFT. PT SITTING UP IN BED WATCHING TV. COMPLAINS OF HEADACHE 01/25. COMPLAINTS OF FEELING OF DIFFICUTLY SWALLOWING FOOD. PT DOES NOT COUGH OR CHOAK WHEN EATING AND DRINKING, DOES NOT APPEAR IN ANY DISTRESS WHEN EATING. DENIES NAUSEA. DENIES SOB OR CHEST PAIN. HR SINUS RHYTHM IN THE 90'S. O2 SATS 100% ON RA. BP ELEVATED AT 199/123, PT REPORTS THAT HE HAS HYPERTENTION AT BASELINE. MEDICATION FOR PAIN, WILL MONITOR IF THIS HELP BP. AWATING TO ARRIVE WITH HOME MEDICATIONS. WILL MONITOR. LIGHTS DIMED FOR COMFORT. COOL WASHCLOTH PLACED ON FORHEAD.
--- NOTE | 2022-10-05 20:05 | NUR ---
PT REPORTS "SLIGHT IMPROVMENT, BUT IT STILL HURTS". BP NOW 165/111. WILL CONTINUE TO MONITOR.
[2022-10-05] MEDS ORDERED: GLIP2.5ER PO (21:29)
[2022-10-05] MEDS ORDERED: STEGLATRO5 MG PO (21:31)
[2022-10-06 01:23] LABS: BASOPHILS ABSOLUTE AUTO 0.04 K/mm3 (0.00-0.23); BASOPHILS PERCENT AUTO 0 % (0-2); EOSINOPHILS ABSOLUTE AUTO 0.17 K/mm3 (0.00-0.68); EOSINOPHILS PERCENT AUTO 2 % (0-6); Hemoglobin 11.9 g/dL (13.5-17.5); IMMATURE GRAN ABSOLUTE AUTO 0.05 K/mm3 (0.00-0.10); IMMATURE GRAN PERCENT AUTO 1 % (0-1); LYMPHOCYTES ABSOLUTE AUTO 2.01 K/mm3 (0.84-5.20); LYMPHOCYTES PERCENT AUTO 20 % (21-46); MONOCYTES ABSOLUTE AUTO 1.31 K/mm3 (0.16-1.47); MONOCYTES PERCENT AUTO 13 % (4-13); Mean Corpuscular HGB 30.1 pg (26.0-34.0); Mean Corpuscular Volume 89 fL (80-100); Mean Platelet Volume 9.8 fL (9.1-12.4); NEUTROPHILS ABSOLUTE AUTO 6.64 K/mm3 (1.96-9.15); NEUTROPHILS PERCENT AUTO 65 % (41-73); Platelet Count 290 K/mm3 (150-400); RDW Coefficient Variation 15.3 % (11.7-14.2); RDW Standard Deviation 49.9 fL (35.1-46.3); Red Blood Cell Count 3.95 M/mm3 (4.30-5.90); White Blood Cell Count 10.22 K/mm3 (4.00-11.30)
[2022-10-06 01:47] LABS: Anion Gap 6 mmol/L (6-16); Blood Urea Nitrogen 54 mg/dL (8-24); Bun/Creatinine Ratio 8.3 (12.0-20.0); CO2, Blood 29 mmol/L (21-32); Calcium, Blood 7.2 mg/dL (8.5-10.1); Chloride, Blood 99 mmol/L (98-108); Creatinine, Blood 6.49 mg/dL (0.60-1.20); Glomerular Filtration Rate 10 (60-); Glucose, Blood 212 mg/dL (70-99); Magnesium, Blood 2.5 mg/dL (1.6-2.4); Phosphorus, Blood 6.3 mg/dL (2.5-4.9); Potassium, Blood 3.6 mmol/L (3.5-5.5); Sodium, Blood 134 mmol/L (136-145)
--- NOTE | 2022-10-06 05:10 | NUR ---
SHIFT SUMMARY: PT HAS CONTINUED TO COMPLAIN OF HEADACHE THROUGHOUT THIS SHIFT. SPOKE WITH DR. BEJARANO, RECIEVED ORDERS FOR BOTH PO TYLENOL AND IMETREX WITH ONLY MINIMAL RESULTS OBTAINED. PT BP REMAINED IN 140-160/100'S THROUGHOUT SHIFT UNTIL 0300 WHEN BP INCREASED TO 224/123. PT HAD NO NEW COMPLAINTS AT THIS TIME OTHER THEN HAVING SEVERE PAIN IN HIS HEAD PREVIOUSLY. PT MEDICATED FOR HIGH BP WITH IV METROPROLO WITH MINIMAL RESULTS, BP ONLY DROPPING TO 190'S/110'S WITH HR IN 80'S AFTER THREE DOSES TO 5 MG. PT BP DECREASED TO 110'S/70'S AFTER RECEIVING PO AMLODIPINE AND IV HYDRALAZINE PER DR. BEJARANO'S ORDERS. APPEARS TO BE RESTING COMFORTABLY IN BED WITH EYES CLOSED AT THIS TIME AFTER RECEIVING DOSE OF PRN IV PAIN MEDICATION FOR HEADACHE. PT REPORTS GOOD RESULTS FROM GI COCKTAIL FROM ACID REFLUX TYPE SYMPTOMS. WILL CONTINUE TO MONITOR.
--- NOTE | 2022-10-06 15:18 | NUR ---
PT D/C THIS AFTERNOON TO HOME. PT PROVIDED WITH D/C TRANSPORT. PT EDUCATED ABOUT MEDICATION REGIMEN, HE EXPRESSED UNDERSTANDING OF MEDCIATIONS REGIMEN. HE DENIES FURHTER NEEDS OR QUESTIONS. IVs REMOVED AND PRESSURE DRESSED.
== END 2022-10-06 13:55 | disposition home or self-care (01) ==
LOC: ER 14:38 → PCU 14:39
PROVIDERS: Student in an Organized Health Care Education/Training Program; ADMIT Internal Medicine
DX: G43.909 Migraine, unspecified, not intractable, without status migrainosus (principal); E11.22 Type 2 diabetes mellitus with diabetic chronic kidney disease; N18.6 End stage renal disease; R77.8 Other specified abnormalities of plasma proteins; Z99.2 Dependence on renal dialysis; Z87.891 Personal history of nicotine dependence; Z20.822 Contact with and (suspected) exposure to COVID-19; I42.0 Dilated cardiomyopathy; Z79.4 Long term (current) use of insulin; I50.22 Chronic systolic (congestive) heart failure; I13.2 Hypertensive heart and chronic kidney disease with heart failure and with stage 5 chronic kidney disease, or end stage renal disease; I16.1 Hypertensive emergency
CPT/HCPCS: 0241U; 36415; 70450; 71045; 80053; 80069; 82947; 83735; 83880; 84484; 85025; 85520; 85610; 85730; 93005; 93010; 96374; 96375; 96376; 99285-25; A9270; G0378; J0360; J1170; J1644; J2405; J2765

== ENCOUNTER 2023-03-31 08:43 | Emergency (ER) | payer OTHER ==
[~2023-03-31] VITALS: Ht 172.7 cm; Wt 70.3 kg
[~2023-03-31 08:43] MED LIST changes: +STEGLATRO5 MG PO
[2023-03-31] MEDS ORDERED: METO10 PO (13:36)
[2023-03-31] MEDS ORDERED: PROC5 PO (13:37)
[2023-03-31 13:45] VITALS: BP 121/91
== END 2023-03-31 13:52 | disposition home or self-care (01) ==
LOC: ER 08:43
DX: G43.909 Migraine, unspecified, not intractable, without status migrainosus (principal); I12.0 Hypertensive chronic kidney disease with stage 5 chronic kidney disease or end stage renal disease; E11.22 Type 2 diabetes mellitus with diabetic chronic kidney disease; N18.6 End stage renal disease; E11.621 Type 2 diabetes mellitus with foot ulcer; Z79.4 Long term (current) use of insulin; Z79.82 Long term (current) use of aspirin; Z99.2 Dependence on renal dialysis; Z79.899 Other long term (current) drug therapy; Z87.891 Personal history of nicotine dependence
CPT/HCPCS: 82947; 96361; 96374; 96375; 99283-25; A9270; J0360; J0780; J1200; J1790; J1885; J2765; J7030

== ENCOUNTER 2023-04-25 18:57 | Emergency (ER) | payer OTHER ==
[~2023-04-25] VITALS: Ht 172.7 cm; Wt 70.8 kg
[~2023-04-25 18:57] MED LIST changes: +METO10 PO; +PROC5 PO
[2023-04-25 19:43] LABS: BASOPHILS ABSOLUTE AUTO 0.04 K/mm3 (0.00-0.23); BASOPHILS PERCENT AUTO 0 % (0-2); EOSINOPHILS ABSOLUTE AUTO 0.02 K/mm3 (0.00-0.68); EOSINOPHILS PERCENT AUTO 0 % (0-6); Hematocrit 41.9 % (37.0-53.0); Hemoglobin 14.4 g/dL (13.5-17.5); IMMATURE GRAN ABSOLUTE AUTO 0.16 K/mm3 (0.00-0.10); IMMATURE GRAN PERCENT AUTO 1 % (0-1); LYMPHOCYTES ABSOLUTE AUTO 1.37 K/mm3 (0.84-5.20); LYMPHOCYTES PERCENT AUTO 6 % (21-46); MONOCYTES ABSOLUTE AUTO 1.36 K/mm3 (0.16-1.47); MONOCYTES PERCENT AUTO 6 % (4-13); Mean Corpuscular HGB 31.4 pg (26.0-34.0); Mean Corpuscular HGB Conc 34.4 g/dL (31.5-36.5); Mean Corpuscular Volume 91 fL (80-100); Mean Platelet Volume 9.9 fL (9.1-12.4); NEUTROPHILS ABSOLUTE AUTO 19.62 K/mm3 (1.96-9.15); NEUTROPHILS PERCENT AUTO 87 % (41-73); Platelet Count 333 K/mm3 (150-400); RDW Coefficient Variation 13.9 % (11.7-14.2); RDW Standard Deviation 45.9 fL (35.1-46.3); Red Blood Cell Count 4.59 M/mm3 (4.30-5.90); White Blood Cell Count 22.57 K/mm3 (4.00-11.30)
[2023-04-25 20:21] LABS: Albumin, Blood 3.3 g/dL (3.4-5.0); Albumin/Globulin Ratio 0.8 (0.8-1.8); Bilirubin, Total 0.5 mg/dL (0.1-1.0); Bun/Creatinine Ratio 6.3 (12.0-20.0); Calcium, Blood 8.7 mg/dL (8.5-10.1); Creatinine, Blood 11.3 mg/dL (0.60-1.20); Globulin, Blood 4.3 g/dL (2.2-4.0); Potassium, Blood 4.7 mmol/L (3.5-5.5); Total Protein, Blood 7.6 g/dL (6.4-8.2)
[2023-04-25 22:48] VITALS: BP 161/96
== END 2023-04-25 23:15 | disposition home or self-care (01) ==
LOC: ER 18:57
PROVIDERS: Emergency Medicine
DX: A08.4 Viral intestinal infection, unspecified (principal); Z87.891 Personal history of nicotine dependence; Z99.2 Dependence on renal dialysis; Z79.82 Long term (current) use of aspirin; Z79.899 Other long term (current) drug therapy; Z79.4 Long term (current) use of insulin
CPT/HCPCS: 80053; 83690; 84484; 85025; 93005; 93010; 96374; 96375; 96376; 99284-25; J0360; J2405; J7030

== ENCOUNTER 2023-05-15 20:10 | Emergency (ER) | payer OTHER ==
[~2023-05-15] VITALS: Ht 172.7 cm; Wt 78.0 kg
[2023-05-15 20:54] VITALS: BP 174/110
[2023-05-15 20:58] LABS: BASOPHILS ABSOLUTE AUTO 0.05 K/mm3 (0.00-0.23); BASOPHILS PERCENT AUTO 1 % (0-2); EOSINOPHILS ABSOLUTE AUTO 0.22 K/mm3 (0.00-0.68); EOSINOPHILS PERCENT AUTO 2 % (0-6); Hematocrit 28.7 % (37.0-53.0); Hemoglobin 9.2 g/dL (13.5-17.5); IMMATURE GRAN ABSOLUTE AUTO 0.04 K/mm3 (0.00-0.10); IMMATURE GRAN PERCENT AUTO 0 % (0-1); LYMPHOCYTES ABSOLUTE AUTO 1.24 K/mm3 (0.84-5.20); LYMPHOCYTES PERCENT AUTO 14 % (21-46); MONOCYTES ABSOLUTE AUTO 0.61 K/mm3 (0.16-1.47); MONOCYTES PERCENT AUTO 7 % (4-13); Mean Corpuscular HGB 31.5 pg (26.0-34.0); Mean Corpuscular HGB Conc 32.1 g/dL (31.5-36.5); Mean Corpuscular Volume 98 fL (80-100); NEUTROPHILS ABSOLUTE AUTO 6.83 K/mm3 (1.96-9.15); NEUTROPHILS PERCENT AUTO 76 % (41-73); Platelet Count 287 K/mm3 (150-400); RDW Coefficient Variation 13.2 % (11.7-14.2); RDW Standard Deviation 47.1 fL (35.1-46.3); Red Blood Cell Count 2.92 M/mm3 (4.30-5.90); White Blood Cell Count 8.99 K/mm3 (4.00-11.30)
[2023-05-15 21:27] LABS: Albumin, Blood 2.7 g/dL (3.4-5.0); Albumin/Globulin Ratio 0.8 (0.8-1.8); Bilirubin, Total 0.2 mg/dL (0.1-1.0); Bun/Creatinine Ratio 5.6 (12.0-20.0); Calcium, Blood 8.2 mg/dL (8.5-10.1); Creatinine, Blood 8.28 mg/dL (0.60-1.20); Globulin, Blood 3.6 g/dL (2.2-4.0); Potassium, Blood 5.1 mmol/L (3.5-5.5); Total Protein, Blood 6.3 g/dL (6.4-8.2)
== END 2023-05-15 23:13 | disposition home or self-care (01) ==
LOC: ER 20:10
PROVIDERS: Student in an Organized Health Care Education/Training Program
DX: E11.22 Type 2 diabetes mellitus with diabetic chronic kidney disease (principal); N18.6 End stage renal disease; I42.9 Cardiomyopathy, unspecified; Z99.2 Dependence on renal dialysis; Z87.891 Personal history of nicotine dependence
CPT/HCPCS: 71046; 80053; 83880; 84484; 85025

== ENCOUNTER 2023-05-16 00:05 | Inpatient (IN) | payer OTHER ==
[2023-05-16] VITALS (15 sets, daily range): BP systolic 129–173; BP diastolic 79–125
[~2023-05-16] VITALS: Ht 175.3 cm; Wt 73.4 kg
[~2023-05-16 00:05] MED LIST changes: +LIPITOR80 MG PO
--- NOTE | 2023-05-16 04:46 | NUR ---
TRANSFER UPDATE REPORT RECIEVED FROM ER NURSE CHRISTY DOWNING 0411. PT ARRIVED TO U AT 0440 VIA GURNEY AND ON RA. PT LAYING ON HIS RIGHT SIDE WEARING PERSONAL CLOTHS. PT ORIENTED TO ROOM AND CALL LIGHT. PT INSTRUCTED TO ALLOW HIS CLOTHES TO BE REMOVED AND A GOWN APPLIED TO GET ACCURATE WIEGHTS, PT COOPERATIVE. PT ABLE TO TRANSFER SELF FROM [facility] TO [facility] BED ON HIS OWN, TOLERATED FAIR. PT REPORTED SOME DIZZINESS, BED ALARM APPLIED. PT INSTRUCTED TO CALL IF HE NEEDS TO GET UP. PT INFORMED THAT HE WOULD NEED TO ANSWER SOME HISTORY QUESTIONS FOR ADMISSION PROCESS. PT GAVE 'S NAME AND NUMBER, WRITTEN ON WHITE BOARD. PT VITALS TAKEN, SEE CHARTS. PT SATS IN THE 80'S ON RA UPON ARRIVAL. 2L NC APPLIED, SATS TO THE HIGH 80'S. 5L APPLIED JEANIE IN THE 90'S. PT RPEORTS SLIGHT SOB BUT NO PARMINDER PAIN/PRESSURE. AFTER VITALS, THIS RN BEGAN TO ASK HISTORY QUESTIONS, PT NOT ANSWERING AT THIS TIME. WILL TRY TO DO HISTORY WITH PT LATER.
--- NOTE | 2023-05-16 05:22 | NUR ---
UPDATE PT AMBULATED TO TOILET, SATS DOWN TO THE HIGH 70'S ON RA. 5L NC REAPPLIED, SATS RETURNED TO 90'S. PT REPORTS SOME DUSYPNEA WITH AMBULATION.
[2023-05-16 06:08] LABS: Anti-Xa UFH, PHA Monitoring <0.10 IU/mL; International Normalized Ratio 0.99; Prothrombin Time Results 10.4 Sec (9.7-11.5)
[2023-05-16 06:30] LABS: BASOPHILS ABSOLUTE AUTO 0.07 K/mm3 (0.00-0.23); BASOPHILS PERCENT AUTO 0 % (0-2); EOSINOPHILS ABSOLUTE AUTO 0.17 K/mm3 (0.00-0.68); EOSINOPHILS PERCENT AUTO 1 % (0-6); Hematocrit 30.7 % (37.0-53.0); Hemoglobin 9.9 g/dL (13.5-17.5); IMMATURE GRAN ABSOLUTE AUTO 0.07 K/mm3 (0.00-0.10); IMMATURE GRAN PERCENT AUTO 0 % (0-1); LYMPHOCYTES ABSOLUTE AUTO 2.05 K/mm3 (0.84-5.20); LYMPHOCYTES PERCENT AUTO 13 % (21-46); MONOCYTES ABSOLUTE AUTO 0.97 K/mm3 (0.16-1.47); MONOCYTES PERCENT AUTO 6 % (4-13); Mean Corpuscular HGB 31.1 pg (26.0-34.0); Mean Corpuscular HGB Conc 32.2 g/dL (31.5-36.5); Mean Corpuscular Volume 97 fL (80-100); Mean Platelet Volume 10.1 fL (9.1-12.4); NEUTROPHILS ABSOLUTE AUTO 12.25 K/mm3 (1.96-9.15); NEUTROPHILS PERCENT AUTO 79 % (41-73); Platelet Count 321 K/mm3 (150-400); RDW Coefficient Variation 13.3 % (11.7-14.2); RDW Standard Deviation 47.8 fL (35.1-46.3); Red Blood Cell Count 3.18 M/mm3 (4.30-5.90); White Blood Cell Count 15.58 K/mm3 (4.00-11.30)
[2023-05-16 07:04] LABS: CHOL/HDL RATIO 2.5; Cholesterol 171 mg/dL (50-200); HDL Cholesterol 69 mg/dL (>39); LDL/HDL RATIO 1.2; Low Density Lipoprotein Chol 85 mg/dL (0-110); Triglycerides 86 mg/dL (30-160); Very Low Density Lipoprot Chol 17 mg/dL (6-32)
--- NOTE | 2023-05-16 09:14 | NUR ---
PT IS ALERT AND AGITATED UPON ASSUMING CARE OF HIM THIS AM. HE BEGINS COMPLAINING THAT HE IS NOT ALLOWED TO HAVE A SPACE HEATER IN HIS ROOM, HE IS PROVIDED WITH BETY HUGGER BLANKET WHICH HE VERY QUICKLY REFUSED BECAUSE "IT WAS TOO MUCH". HE THEN REPORTS THAT HE NEEDS ANXIETY MEDICATION, WHEN ASKED WHAT HE TAKES AT HOME HE STATES "NOTHING" WHEN ASKED ABOUT ALLERGIES HE SHOUTS "I DON'T KNOW!". SPO2 IS LOW AT THIS TIME, O2 IS INCREASED HE IS PLACED ON OXYMIZER, WHICH IMPROVES SPO2, DR MCMAHON IS CALLED FOR CONSULT SHE STATES IF NEEDED WE CAN PROGRESS TO CPAP, RT IS AT THE BEDSIDE SHE IS NOTIFIED. WE ATTEMPT CPAP PT WILL NOT TOLERATE IT, HE IS PLACED BACK ON OXMIZER. HE IS TREATED WITH VISTARIL FOR ANXIETY, DR OSRENSON COMES TO ROOM SHORTLY AFTER THIS. PT THEN BEGINS TO TELL DR SORENSON "I TOLD MY NURSE FOREVER AGO THAT I NEEDED SOMETHING FOR ANXIETY AND SHE NEVER DID ANYTHING ABOUT IT" SINCE THIS RN CAN HEAR THIS CONVERSATION I RETURNED TO THE ROOM TO EDUCATE THE PT WITH THE MD PRESENT THAT HE DID IN FACT RECEIEVE HIS VISATRIL FOR ANXIETY, MD SUPPORTS THAT STAFF IS DOING ALL THAT THEY CAN TO HELP HIM
[2023-05-16 10:06] LABS: Albumin, Blood 2.7 g/dL (3.4-5.0); Albumin/Globulin Ratio 0.8 (0.8-1.8); Bilirubin, Total 0.3 mg/dL (0.1-1.0); Calcium, Blood 8.4 mg/dL (8.5-10.1); Globulin, Blood 3.5 g/dL (2.2-4.0); Potassium, Blood 4.9 mmol/L (3.5-5.5); Total Protein, Blood 6.2 g/dL (6.4-8.2)
[2023-05-16 10:07] LABS: Bun/Creatinine Ratio 5.6 (12.0-20.0); Creatinine, Blood 8.81 mg/dL (0.60-1.20)
--- NOTE | 2023-05-16 12:30 | NUR ---
PER DR WALL'S CONSULT THERE WILL BE NO ANGIOGRAM PERFORMED. PT IS ALLOWED TO EAT LUNCH TRAY. HE EXPRESSED THAT HE WAS SUPPOSED TO FOLLOW UP WITH CARDIOTHORACIC SURGEON IN [place] BUT HE FAILED TO DO SO, HE REPORTS THAT HE WOULD LIKE TO FOLLOW UP WITH CARDIOTHORACIC SURGEON NOW. HE IS MEDICATED WITH HIS MORNING BP MEDICATIONS THAT NEEDED TO BE HELD PRIOR TO DIALYSIS THIS AM.
--- NOTE | 2023-05-16 18:14 | NUR ---
PT HAS HAD DIALYSIS TODAY, HE HAS BEEN RESTING WELL IN BED SINCE DIALYSIS. VSS, WITH SLIGHT HTN NOTED. HE IS NO LONGER ANXIOUS, HE IS CALM AND COOPERATIVE. HE DID REQUIRE INSULIN COVERAGE THIS EVENING. NADN. REMAINS ON 8L O2. HE DENIES FURTHER NEEDS. TAKES MEDS WELL WITH WATER
[2023-05-17] VITALS (16 sets, daily range): BP systolic 112–238; BP diastolic 81–108
[2023-05-17 04:02] LABS: BASOPHILS ABSOLUTE AUTO 0.06 K/mm3 (0.00-0.23); BASOPHILS PERCENT AUTO 1 % (0-2); EOSINOPHILS ABSOLUTE AUTO 0.31 K/mm3 (0.00-0.68); EOSINOPHILS PERCENT AUTO 3 % (0-6); Hemoglobin 9.1 g/dL (13.5-17.5); IMMATURE GRAN ABSOLUTE AUTO 0.06 K/mm3 (0.00-0.10); IMMATURE GRAN PERCENT AUTO 1 % (0-1); LYMPHOCYTES ABSOLUTE AUTO 2.01 K/mm3 (0.84-5.20); LYMPHOCYTES PERCENT AUTO 16 % (21-46); MONOCYTES PERCENT AUTO 8 % (4-13); Mean Corpuscular HGB 31.3 pg (26.0-34.0); Mean Corpuscular HGB Conc 32.5 g/dL (31.5-36.5); Mean Corpuscular Volume 96 fL (80-100); Mean Platelet Volume 10.5 fL (9.1-12.4); NEUTROPHILS ABSOLUTE AUTO 8.98 K/mm3 (1.96-9.15); NEUTROPHILS PERCENT AUTO 72 % (41-73); Platelet Count 262 K/mm3 (150-400); RDW Coefficient Variation 13.3 % (11.7-14.2); RDW Standard Deviation 47.4 fL (35.1-46.3); Red Blood Cell Count 2.91 M/mm3 (4.30-5.90); White Blood Cell Count 12.42 K/mm3 (4.00-11.30)
[2023-05-17 04:44] LABS: Albumin, Blood 2.1 g/dL (3.4-5.0); Anion Gap 9 mmol/L (6-16); Blood Urea Nitrogen 49 mg/dL (8-24); Bun/Creatinine Ratio 5.6 (12.0-20.0); CO2, Blood 27 mmol/L (21-32); Calcium, Blood 7.6 mg/dL (8.5-10.1); Chloride, Blood 104 mmol/L (98-108); Glomerular Filtration Rate 7 (60-); Glucose, Blood 134 mg/dL (70-99); Phosphorus, Blood 4.4 mg/dL (2.5-4.9); Potassium, Blood 4.8 mmol/L (3.5-5.5); Sodium, Blood 140 mmol/L (136-145)
--- NOTE | 2023-05-17 06:10 | NUR ---
SHIFT SUMMARY A.Ox4 AND COOPERATIVE WITH CARE. ANSWERS QUESTIONS APPROPRIATELY AND ABLE TO MAKE HIS NEEDS KNOWN. CAN BE IRRITABLE WITH STAFF AT TIMES AND CONTINUES TO REPORT FEELING OF GENERAL FATIGUE/MALAISE. CARDIAC, REMAINS IN SR-ST RANGING 90-110 S WITH NO COMPLAINTS OF CP, PRESSURE, OR DIZZINESS. SBP HAS BEEN STABLE RANGING 120-140'S. RESPIRATORY, MAINTAINS SPO2 92-96% ON 5-7L VIA NC. DENIES SOB OR DYSPNEA WHILE AT REST. GI/, ABLE TO AMBULATE VIA SBA TO THE BATHROOM. PT IS A DIALYSIS PT AND RECEIVED DIALYSIS ON 05/16 PER DAY SHIFT REPORT. HEPARIN gtt IS BEING MANAGED BY PHARMACY AND HAS BEEN INFUSING ALL NIGHT ORDERED VIA EMAR. ASSESSED PT FOR RISKS OF ANY IGNITION SOURCES WELL BEHAVIORS FOR INCREASED RISKS OF FIRE DANGER. PT EDUCATED ON COMMON SOURCES OF IGNITION WELL NEED TO KEEP A SAFE ENVIRONMENT. PT VOICED UNDERSTANDING. NO NEW ORDERS AT THIS TIME, WILL REPORT TO ONCOMING RN. MARCO BAIRD OF THIS NOTE
--- NOTE | 2023-05-17 18:53 | NUR ---
SHIFT SUMMARY PT IS A&OX4, BUT CAN BE IRRITABLE. HE IS SHORT WHEN COMMUNICATING AND LIKES THINGS DONE A PERCISE WAY. THE PT HAD DIALYSIS THIS AM AND THEY TOOK OFF 1.5L OF FLUID BUT AT FIRST HE WAS REFUSING UNTIL THE DIALYSIS NURSES EXPLAINED DR. HOPPER WAS WANTING FLUID TAKEN OFF. HE COULD HAVE WENT HOME TODAY BUT WANTED TO HAVE ONE MORE DAY OF GETTING FLUID OFF. WE HAVE BEEN TRYING TO TITRAITE THE PT DOWN ON OXYGEN AND WHEN ON RA HE WILL DESATURATE TO 85%. HE IS ON 1.5L WITH SPO2 93-97%. PT DENIES ANY SOB AT THIS TIME. ON TELE HE HAS BEEN SR 90'S. NO ACUTE EVENTS OVER NIGHT. FIRE IGNITION RISK HAS BEEN ASSESSED.
--- NOTE | 2023-05-18 03:03 | NUR ---
UPDATE ~2300 ON 05/17/23 THIS RN CALLED TO ROOM WITH PT C/O GENERAL DULL BODY ACHES THAT HAVE "BEEN OFF AND ON ALL DAY". DENIES ANY CP, PRESSURE, OR RADIATION OF PAIN. ATTEMPTED TO MANAGE PAIN WITH PRN TYLENOL WITH MINIMAL SUCCESS AT CONTROLING PT'S PAIN. DR. LUCIA NOTIFIED WITH NEW ORDERS FOR ON TIME DOSE OF PO TRAMADOL 25MG. SEE EMAR FOR ADMINISTRATION DETAILS.
[2023-05-18 04:23] VITALS: BP 158/103
--- NOTE | 2023-05-18 04:41 | NUR ---
SHIFT SUMMARY A.Ox4 AND COOPERATIVE WITH CARE. ANSWERS QUESTIONS APPROPRIATELY AND ABLE TO MAKE HIS NEEDS KNOWN. CAN BE IRRITABLE WITH STAFF AT TIMES. CARDIAC, REMAINS IN SR-ST RANGING 90-110's WITH NO COMPLAINTS OF CP, PRESSURE, OR DIZZINESS. SBP HAS BEEN STABLE RANGING 130-140's. RESPIRATORY, MAINTAINS SPO2 90-94% ON RA-0.5L VIA NC. DENIES SOB OR DYSPNEA WHILE AT REST. BUT SOME INCREASED WORK OF BREATHING NOTED WITH MODERATE EXERTION. GI/, ABLE TO AMBULATE VIA SBA TO THE BATHROOM. PT IS A DIALYSIS PT AND RECEIVED DIALYSIS ON 05/16 WELL 05/17 PER DAY SHIFT REPORT. STILL ABLE TO MAKE CLEAR/YELLOW URINE. NO BM FOR THIS SHIFT. PT ON 1200 ML FLUID RESTRICTION. PT S SPOUSE NOTED TO HAVE BROUGHT PT BOTTLE OF SPRITE. PT EDUCATED ON NEED TO ADHERE TO FLUID RESTRICTION IN PLACE WELL POTENTIAL HEALTH RISKS ASSOCIATED WITH EXCEEDING FLUID RESTRICTION AMOUNT. HEPARIN gtt IS BEING MANAGED BY PHARMACY AND HAS BEEN INFUSING ALL NIGHT ORDERED VIA EMAR. PT STARTED TO REPORTED GENERAL FULL BODY ACHES ~2300 YESTERDAY PM. PAIN MANAGED WELL VIA [facility]. SEE UPDATE NOTE FOR DETAILS. ASSESSED PT FOR RISKS OF ANY IGNITION SOURCES WELL BEHAVIORS FOR INCREASED RISKS OF FIRE DANGER. PT EDUCATED ON COMMON SOURCES OF IGNITION WELL NEED TO KEEP A SAFE ENVIRONMENT. PT VOICED UNDERSTANDING. PT TO BE D/C'd THIS AM WITH FOLLOW UP WITH OUTPATIENT CARDIOLOGY. NO NEW ORDERS AT THIS TIME, WILL REPORT TO ONCOMING RN. MARCO BAIRD OF THIS NOTE
[2023-05-18 04:58] LABS: Hematocrit 27.6 % (37.0-53.0); Hemoglobin 8.9 g/dL (13.5-17.5)
[2023-05-18 05:15] LABS: Albumin, Blood 2.1 g/dL (3.4-5.0); Anion Gap 9 mmol/L (6-16); Blood Urea Nitrogen 54 mg/dL (8-24); Bun/Creatinine Ratio 6.9 (12.0-20.0); CO2, Blood 29 mmol/L (21-32); Calcium, Blood 7.6 mg/dL (8.5-10.1); Chloride, Blood 103 mmol/L (98-108); Creatinine, Blood 7.83 mg/dL (0.60-1.20); Glomerular Filtration Rate 8 (60-); Glucose, Blood 171 mg/dL (70-99); Magnesium, Blood 2.3 mg/dL (1.6-2.4); Potassium, Blood 4.1 mmol/L (3.5-5.5); Sodium, Blood 141 mmol/L (136-145)
[2023-05-18 06:26] LABS: BASOPHILS ABSOLUTE AUTO 0.07 K/mm3 (0.00-0.23); BASOPHILS PERCENT AUTO 1 % (0-2); EOSINOPHILS ABSOLUTE AUTO 0.34 K/mm3 (0.00-0.68); EOSINOPHILS PERCENT AUTO 4 % (0-6); Hematocrit 27.2 % (37.0-53.0); Hemoglobin 8.9 g/dL (13.5-17.5); IMMATURE GRAN ABSOLUTE AUTO 0.07 K/mm3 (0.00-0.10); IMMATURE GRAN PERCENT AUTO 1 % (0-1); LYMPHOCYTES ABSOLUTE AUTO 1.96 K/mm3 (0.84-5.20); LYMPHOCYTES PERCENT AUTO 22 % (21-46); MONOCYTES ABSOLUTE AUTO 0.82 K/mm3 (0.16-1.47); MONOCYTES PERCENT AUTO 9 % (4-13); Mean Corpuscular HGB 31.2 pg (26.0-34.0); Mean Corpuscular HGB Conc 32.7 g/dL (31.5-36.5); Mean Corpuscular Volume 95 fL (80-100); Mean Platelet Volume 11.1 fL (9.1-12.4); NEUTROPHILS ABSOLUTE AUTO 5.62 K/mm3 (1.96-9.15); NEUTROPHILS PERCENT AUTO 63 % (41-73); Platelet Count 279 K/mm3 (150-400); RDW Coefficient Variation 13.3 % (11.7-14.2); RDW Standard Deviation 47.1 fL (35.1-46.3); Red Blood Cell Count 2.85 M/mm3 (4.30-5.90); White Blood Cell Count 8.88 K/mm3 (4.00-11.30)
[2023-05-18 06:43] LABS: Albumin, Blood 2.1 g/dL (3.4-5.0); Albumin/Globulin Ratio 0.6 (0.8-1.8); Bilirubin, Total 0.3 mg/dL (0.1-1.0); Bun/Creatinine Ratio 6.7 (12.0-20.0); Calcium, Blood 7.5 mg/dL (8.5-10.1); Creatinine, Blood 7.88 mg/dL (0.60-1.20); Globulin, Blood 3.6 g/dL (2.2-4.0); Potassium, Blood 4.1 mmol/L (3.5-5.5); Total Protein, Blood 5.7 g/dL (6.4-8.2)
[2023-05-18 07:58] VITALS: BP 154/107
[2023-05-18] MEDS ORDERED: ENTRESTO 24 MG1 EACH PO (14:14)
[2023-05-18] MEDS ORDERED: CLOP75 PO (14:14)
--- NOTE | 2023-05-18 15:01 | NUR ---
DISCHARGE SUMMARY: PT HAS BEEN CLEARED FOR DISCHARGE W/PLAN TO F/UP OUTPATIENT W/CARDIOLOGY. ALL IV ACCESS HAS BEEN DC'd. PT DRESSES SELF. PT PROVIDED W/DC PAPERWORK AND INSTRUCTIONS, VERBALIZES UNDERSTANDING AND INTENT TO FOLLOW UP W/CARDIOLOGY AND PCP. PT ESCORTED FROM UNIT VIA W/C W/OUT INCIDENT.
== END 2023-05-18 14:49 | disposition home or self-care (01) | DRG 280 ==
LOC: ER 00:05 → PCU 00:06
PROVIDERS: Family Medicine; Internal Medicine Nephrology; Student in an Organized Health Care Education/Training Program; ADMIT Student in an Organized Health Care Education/Training Program
PROC: B24BYZZ Ultrasonography of Heart with Aorta using Other Contrast (ICD-10-PCS; 2023-05-16)
PROC: 5A1D70Z Performance of Urinary Filtration, Intermittent, Less than 6 Hours Per Day (ICD-10-PCS; principal; 2023-05-17)
DX: I50.23 Acute on chronic systolic (congestive) heart failure (principal); I21.A1 Myocardial infarction type 2; J96.01 Acute respiratory failure with hypoxia; N18.6 End stage renal disease; I12.0 Hypertensive chronic kidney disease with stage 5 chronic kidney disease or end stage renal disease; I31.39 Other pericardial effusion (noninflammatory); I42.0 Dilated cardiomyopathy; I25.10 Atherosclerotic heart disease of native coronary artery without angina pectoris; E11.22 Type 2 diabetes mellitus with diabetic chronic kidney disease; F15.11 Other stimulant abuse, in remission; I27.20 Pulmonary hypertension, unspecified; D63.1 Anemia in chronic kidney disease; E87.5 Hyperkalemia; I25.5 Ischemic cardiomyopathy; I50.82 Biventricular heart failure; I08.1 Rheumatic disorders of both mitral and tricuspid valves; E88.09 Other disorders of plasma-protein metabolism, not elsewhere classified; Z87.891 Personal history of nicotine dependence; Z99.2 Dependence on renal dialysis; Z79.4 Long term (current) use of insulin; Z79.82 Long term (current) use of aspirin; Z53.20 Procedure and treatment not carried out because of patient's decision for unspecified reasons
CPT/HCPCS: 36415; 80053; 80061; 80069; 82947; 83036; 83735; 84443; 84484; 85014; 85018; 85025; 85520; 85610; 93005; 93010; 94660; 94760; 94762; 96374; 99284-25; A9270; C8929; C9113; J1644; J1815; J2060; Q0177; Q9957

== ENCOUNTER 2023-07-29 22:29 | Emergency (ER) | payer OTHER ==
[~2023-07-29] VITALS: Ht 172.7 cm; Wt 77.0 kg
[~2023-07-29 22:29] MED LIST changes: +CLOP75 PO; +ENTRESTO 24 MG1 EACH PO
[2023-07-29 23:30] LABS: BASOPHILS ABSOLUTE AUTO 0.04 K/mm3 (0.00-0.23); BASOPHILS PERCENT AUTO 0 % (0-2); EOSINOPHILS ABSOLUTE AUTO 0.23 K/mm3 (0.00-0.68); EOSINOPHILS PERCENT AUTO 2 % (0-6); Hematocrit 25.4 % (37.0-53.0); Hemoglobin 8.3 g/dL (13.5-17.5); IMMATURE GRAN ABSOLUTE AUTO 0.04 K/mm3 (0.00-0.10); IMMATURE GRAN PERCENT AUTO 0 % (0-1); LYMPHOCYTES PERCENT AUTO 14 % (21-46); MONOCYTES ABSOLUTE AUTO 0.59 K/mm3 (0.16-1.47); MONOCYTES PERCENT AUTO 6 % (4-13); Mean Corpuscular HGB 30.9 pg (26.0-34.0); Mean Corpuscular HGB Conc 32.7 g/dL (31.5-36.5); Mean Corpuscular Volume 94 fL (80-100); Mean Platelet Volume 10.3 fL (9.1-12.4); NEUTROPHILS ABSOLUTE AUTO 7.93 K/mm3 (1.96-9.15); NEUTROPHILS PERCENT AUTO 78 % (41-73); Platelet Count 257 K/mm3 (150-400); RDW Coefficient Variation 13.8 % (11.7-14.2); RDW Standard Deviation 47.2 fL (35.1-46.3); Red Blood Cell Count 2.69 M/mm3 (4.30-5.90); White Blood Cell Count 10.23 K/mm3 (4.00-11.30)
[2023-07-29 23:54] LABS: Magnesium, Blood 2.5 mg/dL (1.6-2.4)
[2023-07-29 23:56] LABS: Prothrombin Time Results 10.5 Sec (9.7-11.5)
[2023-07-30 00:08] LABS: Albumin, Blood 3.5 g/dL (3.4-5.0); Albumin/Globulin Ratio 0.9 (0.8-1.8); Bilirubin, Total 0.4 mg/dL (0.1-1.0); Bun/Creatinine Ratio 8.1 (12.0-20.0); Calcium, Blood 8.8 mg/dL (8.5-10.1); Creatinine, Blood 9.12 mg/dL (0.60-1.20); Globulin, Blood 3.8 g/dL (2.2-4.0); Potassium, Blood 5.3 mmol/L (3.5-5.5); Total Protein, Blood 7.3 g/dL (6.4-8.2)
[2023-07-30 05:00] VITALS: BP 146/95
== END 2023-07-30 05:30 | disposition home or self-care (01) ==
LOC: ER 22:29
PROVIDERS: Emergency Medicine
DX: I13.2 Hypertensive heart and chronic kidney disease with heart failure and with stage 5 chronic kidney disease, or end stage renal disease (principal); I50.9 Heart failure, unspecified; N18.6 End stage renal disease; Z99.2 Dependence on renal dialysis; E11.22 Type 2 diabetes mellitus with diabetic chronic kidney disease; I42.9 Cardiomyopathy, unspecified; E11.621 Type 2 diabetes mellitus with foot ulcer; L97.519 Non-pressure chronic ulcer of other part of right foot with unspecified severity; Z87.891 Personal history of nicotine dependence; Z79.4 Long term (current) use of insulin; Z79.82 Long term (current) use of aspirin; Z79.02 Long term (current) use of antithrombotics/antiplatelets; Z79.899 Other long term (current) drug therapy; Z88.8 Allergy status to other drugs, medicaments and biological substances
CPT/HCPCS: 71045; 80053; 82947; 83735; 84100; 84443; 84484; 85025; 85610; 85730; 93005; 93010; 94640; 94664; 99284-25